=== PATIENT | male | born 1955 | race Caucasian/White ===

== ENCOUNTER → 2016-05-16 | Outpatient (CLI) | payer OTHER ==
--- NOTE | 2016-05-16 09:54 | DIAGNOSTIC IMAGING REPORT ---
CT SCAN OF THE TEMPORAL BONES WITHOUT IV CONTRAST CLINICAL HISTORY: Chronic cholesteatoma. COMPARISON STUDY: No priors. TECHNIQUE: High-resolution CT scan of the temporal bones is performed. Images are reviewed in the axial, sagittal, and coronal planes. IV contrast was not administered for this examination. CT DOSE: 626.31 mGy.cm FINDINGS: The skeletal structures are osteopenic. There is no evidence of temporal bone fracture. The right mastoid air cells are clear. There is near complete opacification of the left mastoid air cells. This appears to communicate with soft tissue attenuation density within the left middle ear. This measures at least 1.7 cm in maximum diameter and surrounds the left ossicles, and likely represents the reported history of cholesteatoma. This is also contiguous with material within the external auditory canal adjacent to the tympanic membrane. The left scutum appears eroded. There is no dehiscence of the left tegmen tympany. The right middle ear structures are normal in appearance. The right scutum appears sharp. Trace mucosal thickening is seen within the maxillary antra. The remaining paranasal sinuses are clear. Partially visualized brain parenchyma at the skull base is within normal limits. The orbital contents are normal as imaged. IMPRESSION: 1. There is subtotal opacification of the left mastoid air cells. This is contiguous with soft tissue density material within the left middle ear as detailed above. This likely corresponds to the reported history of a chronic cholesteatoma. 2. The right middle ear structures are normal as imaged. Dictated: 05/16/2016 9:41 AM Transcribed: 05/16/2016 9:54 AM [email or web address] Electronically signed by: Ermias Pena M.D. 05/16/2016 9:59 AM Dictated Date/Time: 05/16/2016 9:41 AM
== END | disposition home or self-care (01) ==
LOC: C.CTS 09:26
PROVIDERS: ATTEND Otolaryngology
DX: H71.02 Cholesteatoma of attic, left ear (principal); H70.12 Chronic mastoiditis, left ear; H90.72 Mixed conductive and sensorineural hearing loss, unilateral, left ear, with unrestricted hearing on the contralateral side

== ENCOUNTER 2023-12-16 05:32 | Inpatient (IN) ==
[2023-12-16] MEDS: diphenhydrAMINE 50 MG/ML VIAL IV STA (07:13)
[2023-12-16] MEDS: PROCHLORPERAZINE 2 ML IV ONE (07:13)
[2023-12-16] MEDS: SODIUM CHLORIDE 0.9% 2,000 ML IV ONE (07:15)
[2023-12-16 07:24] LABS: Hematocrit (blood only) 39.8 % (42.0-52.0); Hemoglobin 13.9 g/dl (14.0-18.0); Mean Corpuscular Hemoglobin 30.3 pg (25.0-34.0); Mean Corpuscular Hgb Conc 34.9 g/dL (32.0-36.0); Mean Corpuscular Volume 86.9 fL (80.0-100.0); Mean Platelet Volume 9.7 fL (9.4-12.4); Platelet Count 189 K/uL (130-400); RDW Standard Deviation 41.1 fL (36.4-46.3); Red Blood Count 4.58 M/uL (4.70-6.10); White Blood Count 6.64 K/ul (4.8-10.8)
[2023-12-16 07:30] LABS: Alanine Aminotransferase 28 U/L (7-52); Albumin Globulin Ratio 1.1 (0.9-2); Albumin Level 3.3 gm/dl (3.4-5.0); Alkaline Phosphatase 36 U/L (34-104); Anion Gap 8 (3-11); Aspartate Aminotransferase 36 U/L (13-39); BUN Creatinine Ratio 17.8 (10-20); Bilirubin,Total 0.4 mg/dl (0.2-1.0); Blood Urea Nitrogen 18 mg/dl (6-23); Calcium 8.1 mg/dl (8.6-10.3); Carbon Dioxide 22 mmol/L (21-32); Chloride 101 mmol/L (98-107); Est GFR (African American) 87.6 ml/min; Est GFR (Non-African American) 75.5 ml/min; Globulin 3.1 gm/dl (2.5-4.0); Glucose 143 mg/dl (70-99(Fasting)); Lipase 22 U/L (11-82); Potassium 4.1 mmol/L (3.5-5.1); Sodium 131 mmol/L (136-145); Total Protein 6.4 gm/dl (6.0-8.3)
--- NOTE | 2023-12-16 07:34 | Emergency Department Note ---
Impression & Plan Headache, Bilateral pneumonia, Acute hypoxemic respiratory failure, COVID-19 ED Provider Note HISTORY OF PRESENT ILLNESS: Patient is a 68-year-old male presenting with headache and vomiting. Patient's daughter acts as research laboratory technician, as patient is primarily [place]-speaking. Offered formal research laboratory technician but she declined. She reports that the patient tested positive for COVID on 12/07/2023 (9 days ago). Reports patient has had a cough and has been on steroids intermittently since. Patient was seen in the emergency department on 12/09/2023 and diagnosed with bronchitis with his COVID. He was not started on Paxlovid after a thorough discussion. He was given a dose of 125 mg IV Solu-Medrol and 10 mg IV Toradol and had some improvement in his symptoms. He was discharged home with a Medrol Dosepak. Patient reportedly has been having a headache over the last week. Daughter states that the patient has been complaining of a constant headache for the last 7 days. Reports in the last 48 hours a headache has been significantly worse. Patient locates the pain diffusely across his anterior forehead. He has never had headaches like this before outside of the last week. Denies any recent falls or head injury or chiropractic manipulation of his neck. He reports some blurry vision over the last 48 hours. Denies any double vision. Denies any numbness, tingling or weakness in his extremities. He did have a fever of 100.1 yesterday, but when they went to see his primary care provider he was afebrile. Patient was seen in the emergency department 2 days ago for his persistent headache and was given a headache cocktail with some improvement in his symptoms. He was also given a short course of oxycodone, which reportedly did seem to help his headache at the time. Daughter reports that shortly after getting home after the ER visit, his headache returned. Daughter reports that yesterday when they went to the patient's PCP, he was given a further prescription for oxycodone, but he has taken 2-3 doses of this for his persistent headache, with little relief in symptoms. He has had associated vomiting with the headache. He is not on any anticoagulation. Denies any recent surgeries or long flights. Denies any DVT or PE history. ROS: as above PHYSICAL EXAM: Constitutional: Patient appears in no acute distress. Patient actively vomiting on my assessment in the emergency department. HENT: Head: Normocephalic and atraumatic. Eyes: EOMI, PERRL Mouth/Throat: Mucous membranes moist. Neck: Trachea midline. Neck supple. Full range of motion of the neck without meningismus. Cardiovascular: RRR, No murmurs, rubs or gallops. Intact distal pulses. Pulmonary/Chest: No respiratory distress. Breath sounds clear and equal bilaterally. No wheezes or rales. Abdominal: Abdomen soft, no rebound or guarding. RUQ TTP Musculoskeletal: No edema, tenderness or deformity noted. Skin: Warm and dry. No rash, erythema, pallor or cyanosis Psychiatric: Appropriate mood and affect for situation. Neurological: Alert and keenly responsive. CN II-XII grossly intact, moving all extremities equally and fully. MDM: - Vitals signs stable - History obtained via patient's daughter, as patient is primarily [place] speaking. History as above. - Chronic conditions affecting care: DM-2; HLD - Differential diagnoses include, but are not limited to: Viral syndrome; meningitis; subarachnoid hemorrhage; central venous sinus thrombosis; pneumonia; UTI; cholecystitis - Order placed for continuous cardiac monitoring. At this time, monitor showed rate of 80 bpm with normal sinus rhythm, per my interpretation. - External medical records reviewed. PDMP was reviewed. Patient was given a total of 20 tabs of oxycodone by PCP on 12/15/2023 - EKG interpreted by myself showed normal sinus rhythm. Rate 68 bpm. QT 416. No acute ischemic changes. - Laboratory workup interpreted by myself showed normal WBC; normal PT/INR; elevated lactate (3.4); slight hyponatremia (Na 131); normal procalcitonin; elevated CRP (15.49); normal lipase - CXR shows bilateral pneumonia, per my interpretation - CT venogram negative - CT abdomen/pelvis with IV contrast negative for acute intra-abdominal abnormality. Noted to have multifocal airspace consolidations in both lungs concerning for multifocal pneumonia. - Viral respiratory panel positive for COVID-19 - Patient initially given 2L NS, 10 mg IV compazine and 50 mg IV benadryl - He was empirically started on antibiotics for potential meningitis. Given IV Rocephin and IV vancomycin. On reassessment, he is still complaining of a headache and was given 1 g IV magnesium and 1 g IV Tylenol. - Blood cultures ordered. - Patient became hypoxic in ER and was initially placed on 2 L nasal cannula, then increased to 4 L and then placed on oxi mask. - With the use of a [place] research laboratory technician on the video conference iPad, I discussed the medical reasoning and benefits of performing a lumbar puncture with the patient for the evaluation of meningitis. Associated risks associated with lumbar puncture including but not limited to worsening headache, introduction of infection, bleeding and hematoma formation, etc. Consequences associated with these risks were discussed with patient. Benefits of lumbar puncture discussed with the patient included but not limited to making the diagnosis of meningitis and guiding therapy. Other treatment options were discussed including but not limited to treating for meningitis with antibiotics without performing lumbar puncture, and if available consulting radiology to perform lumbar puncture, etc. I described the procedure in depth and what to expect during the procedure with the patient. Patient voiced understanding of benefits, risks and alternative options. Patient gave verbal consent for me to perform the procedure. Patient tolerated procedure well and without any immediate complication. Please refer to procedure note for further detail. - Both myself and Dr. Campo attempted the LP but no cerebrospinal fluid was able to be obtained. Antibiotics are currently being administered for coverage for meningitis. - Discussion was had with case managers about patient's case and need for admission - Hospitalist consulted for admission - Patient admitted to [facility] for further evaluation and management. I have personally spent 36 minutes of critical care time in the direct management of this patient. This includes bedside care, interpretation of diagnostic studies, and testing, discussion with consultants, patient, and family members, and other required patient management activities. This 36 minutes is in excess of all separately billable procedures. ASSESSMENT AND PLAN: Diagnosis: Headache; COVID-19; bilateral pneumonia; acute hypoxic respiratory failure Plan: Admit Past Med/Surg History Problem List (Updated 12/16/23 @ 13:52 by Sobia Barrientos MD) COVID-19 (Acute) Acute hypoxemic respiratory failure (Acute) Bilateral pneumonia (Acute) Headache (Acute) Acute respiratory failure with hypoxia Pneumonia History of granulomatous disease History of chronic cough Diabetes mellitus, type II HTN (hypertension) CKD (chronic kidney disease), stage III Acute hyponatremia (Acute) COVID-19 (Acute) Headache (Acute) Cough (Acute) COVID (Acute) Lung disease Diabetes Dyslipidemia Medical History (Updated 12/16/23 @ 13:52 by Sobia Barrientos MD) Left ear hearing loss Bilateral tinnitus Vertigo Surgical History (Updated 12/16/23 @ 12:50 by Molly Machuca PA-C) History of esophagogastroduodenoscopy (EGD) History of colonoscopy Status post mastoidectomy Family History (Updated 12/16/23 @ 12:51 by Molly Machuca PA-C) Mother Diabetes Social History Smoking Status: Former smoker Preferred Language: [place] Communication Tools: IPad Feels Safe at Home: Yes Allergies Allergies Allergy/AdvReac Type Severity Reaction Status Date / Time No Known Allergies Allergy Verified 02/21/21 12:03 Home Meds Home Medications Medication Instructions Recorded Confirmed glipizide 5 mg tablet, extended 5 mg PO DAILY 11/22/20 12/16/23 release 24 hr pantoprazole 40 mg tablet,delayed 40 mg PO DAILY 11/22/20 12/16/23 release albuterol sulfate 90 mcg/actuation 2 inh inhalation Q6H PRN Shortness 02/21/21 12/16/23 aerosol inhaler (Ventolin HFA) Of Breath Or Wheezing atorvastatin 80 mg tablet 80 mg PO HS 12/14/23 12/16/23 linagliptin 5 mg tablet (Tradjenta) 5 mg PO DAILY 12/14/23 12/16/23 losartan 25 mg tablet 25 mg PO DAILY 12/14/23 12/16/23 mometasone 220 mcg/actuation(120 0 inh inhalation UD 12/14/23 12/16/23 doses)breath activated powder inhaler (Asmanex Twisthaler) benzonatate 200 mg capsule 200 mg PO BID PRN Cough 12/16/23 12/16/23 ondansetron HCl 4 mg tablet 4 mg PO Q8H PRN n/v 12/16/23 12/16/23 oxycodone 5 mg tablet 5 mg PO Q6H PRN Pain 12/16/23 12/16/23 prednisone 20 mg tablet 20 mg PO UD 12/16/23 12/16/23 Results & Data (ED) Vital Signs Vital Signs - 24 hr 12/16/23 05:32 12/16/23 05:37 12/16/23 05:51 Temperature 37.1 C Temperature Source Oral Pulse Rate 85 84 Pulse Rate [Apical] Pulse Rate from SpO2 Sensor Respiratory Rate Respiratory Effort / Characteristics Non-Labored Respiratory Depth Normal Respiratory Pattern Blood Pressure 133/78 Blood Pressure [Left Arm] Blood Pressure Mean 96 Blood Pressure Mean [Left Arm] Pulse Oximetry 91 Oxygen Delivery Method Room Air Oxygen Flow Rate Sepsis Recent Fever Within 48 Hours Yes Sepsis New/Unexplained Change in Mental Status No Sepsis Action Taken by Nursing No Action Required 12/16/23 05:51 12/16/23 05:51 12/16/23 05:51 Temperature Temperature Source Pulse Rate Pulse Rate [Apical] Pulse Rate from SpO2 Sensor Respiratory Rate Respiratory Effort / Characteristics Respiratory Depth Respiratory Pattern Blood Pressure 159/93 H 159/93 H 159/93 H Blood Pressure [Left Arm] Blood Pressure Mean 113 113 113 Blood Pressure Mean [Left Arm] Pulse Oximetry Oxygen Delivery Method Oxygen Flow Rate Sepsis Recent Fever Within 48 Hours Sepsis New/Unexplained Change in Mental Status Sepsis Action Taken by Nursing 12/16/23 05:54 12/16/23 06:09 12/16/23 06:18 Temperature Temperature Source Pulse Rate 80 84 74 Pulse Rate [Apical] Pulse Rate from SpO2 Sensor 76 70 70 Respiratory Rate 17 23 22 Respiratory Effort / Characteristics Respiratory Depth Respiratory Pattern Blood Pressure Blood Pressure [Left Arm] Blood Pressure Mean Blood Pressure Mean [Left Arm] Pulse Oximetry 95 95 97 Oxygen Delivery Method Oxygen Flow Rate Sepsis Recent Fever Within 48 Hours Sepsis New/Unexplained Change in Mental Status Sepsis Action Taken by Nursing 12/16/23 06:45 12/16/23 06:48 12/16/23 07:21 Temperature Temperature Source Pulse Rate 76 77 Pulse Rate [Apical] Pulse Rate from SpO2 Sensor 78 78 Respiratory Rate 19 15 Respiratory Effort / Characteristics Respiratory Depth Respiratory Pattern Blood Pressure 144/74 H Blood Pressure [Left Arm] Blood Pressure Mean 86 Blood Pressure Mean [Left Arm] Pulse Oximetry 96 96 Oxygen Delivery Method Oxygen Flow Rate Sepsis Recent Fever Within 48 Hours Sepsis New/Unexplained Change in Mental Status Sepsis Action Taken by Nursing 12/16/23 07:21 12/16/23 07:21 12/16/23 07:24 Temperature Temperature Source Pulse Rate 78 Pulse Rate [Apical] Pulse Rate from SpO2 Sensor Respiratory Rate 22 Respiratory Effort / Characteristics Respiratory Depth Respiratory Pattern Blood Pressure 144/74 H 144/74 H Blood Pressure [Left Arm] Blood Pressure Mean 86 86 Blood Pressure Mean [Left Arm] Pulse Oximetry 92 Oxygen Delivery Method Nasal Cannula Oxygen Flow Rate 2 Sepsis Recent Fever Within 48 Hours Sepsis New/Unexplained Change in Mental Status Sepsis Action Taken by Nursing 12/16/23 07:24 12/16/23 07:30 12/16/23 07:30 Temperature Temperature Source Pulse Rate 77 80 Pulse Rate [Apical] Pulse Rate from SpO2 Sensor 78 81 Respiratory Rate 25 H 22 Respiratory Effort / Characteristics Respiratory Depth Respiratory Pattern Blood Pressure 140/79 Blood Pressure [Left Arm] Blood Pressure Mean 93 Blood Pressure Mean [Left Arm] Pulse Oximetry 90 93 Oxygen Delivery Method Oxygen Flow Rate Sepsis Recent Fever Within 48 Hours Sepsis New/Unexplained Change in Mental Status Sepsis Action Taken by Nursing 12/16/23 07:30 12/16/23 07:30 12/16/23 07:45 Temperature Temperature Source Pulse Rate 83 Pulse Rate [Apical] Pulse Rate from SpO2 Sensor 86 Respiratory Rate 22 Respiratory Effort / Characteristics Respiratory Depth Respiratory Pattern Blood Pressure 140/79 140/79 Blood Pressure [Left Arm] Blood Pressure Mean 93 93 Blood Pressure Mean [Left Arm] Pulse Oximetry 97 Oxygen Delivery Method Oxygen Flow Rate Sepsis Recent Fever Within 48 Hours Sepsis New/Unexplained Change in Mental Status Sepsis Action Taken by Nursing 12/16/23 07:54 12/16/23 08:00 12/16/23 08:00 Temperature Temperature Source Pulse Rate 79 Pulse Rate [Apical] Pulse Rate from SpO2 Sensor 79 Respiratory Rate 21 Respiratory Effort / Characteristics Respiratory Depth Respiratory Pattern Blood Pressure 133/76 133/76 Blood Pressure [Left Arm] Blood Pressure Mean 103 103 Blood Pressure Mean [Left Arm] Pulse Oximetry Oxygen Delivery Method Oxygen Flow Rate Sepsis Recent Fever Within 48 Hours Sepsis New/Unexplained Change in Mental Status Sepsis Action Taken by Nursing 12/16/23 08:00 12/16/23 08:33 12/16/23 08:38 Temperature Temperature Source Pulse Rate 77 95 H Pulse Rate [Apical] 73 Pulse Rate from SpO2 Sensor 77 Respiratory Rate 21 25 H 19 Respiratory Effort / Characteristics Respiratory Depth Respiratory Pattern Blood Pressure Blood Pressure [Left Arm] 133/76 Blood Pressure Mean Blood Pressure Mean [Left Arm] 95 Pulse Oximetry 90 87 L Oxygen Delivery Method Nasal Cannula Oxygen Flow Rate 2 Sepsis Recent Fever Within 48 Hours Sepsis New/Unexplained Change in Mental Status Sepsis Action Taken by Nursing 12/16/23 08:40 12/16/23 09:27 12/16/23 11:00 Temperature Temperature Source Pulse Rate 76 Pulse Rate [Apical] 70 Pulse Rate from SpO2 Sensor Respiratory Rate 18 Respiratory Effort / Characteristics Non-Labored Spontaneous Respiratory Depth Normal Respiratory Pattern Regular Blood Pressure Blood Pressure [Left Arm] 142/82 H Blood Pressure Mean Blood Pressure Mean [Left Arm] 102 Pulse Oximetry 94 95 Oxygen Delivery Method Nasal Cannula Oxymask Oxygen Flow Rate 4 4 Sepsis Recent Fever Within 48 Hours Sepsis New/Unexplained Change in Mental Status Sepsis Action Taken by Nursing Laboratory Data 12/16/23 06:00 12/16/23 06:00 Lab Results 12/16/23 12/16/23 12/16/23 Range/Units 06:00 07:05 07:39 WBC 6.64 (4.8-10.8) K/ul RBC 4.58 L (4.70-6.10) M/uL Hgb 13.9 L (14.0-18.0) g/dl Hct 39.8 L (42.0-52.0) % MCV 86.9 (80.0-100.0) fL MCH 30.3 (25.0-34.0) pg MCHC 34.9 (32.0-36.0) g/dL RDW Std Deviation 41.1 (36.4-46.3) fL RDW Coeff of John 13.0 (11.5-14.5) % Plt Count 189 (130-400) K/uL MPV 9.7 (9.4-12.4) fL Neutrophils % (Manual) 84 % Lymphocytes % (Manual) 10 % Monocytes % (Manual) 6 % Neutrophils # (Manual) 5.58 (1.40-6.50) K/uL Total Absolute Neuts 5.58 (1.4-6.5) K/uL Lymphocytes # (Manual) 0.66 L (1.2-3.4) K/uL Total Abs Lymphocytes 0.66 L (1.2-3.4) K/uL Monocytes # (Manual) 0.40 (0.11-0.59) K/uL RBC Morphology Unremarkable PT 10.5 (9.0-12.0) Seconds INR 1.0 (0.9-1.1) Sodium 131 L (136-145) mmol/L Potassium 4.1 (3.5-5.1) mmol/L Chloride 101 (98-107) mmol/L Carbon Dioxide 22 (21-32) mmol/L Anion Gap 8 (3-11) BUN 18 (6-23) mg/dl Creatinine 1.01 (0.6-1.4) mg/dl Est Cr Clr Drug Dosing Not Reportable Est GFR ( Amer) 87.6 ml/min Est GFR (Non-Af Amer) 75.5 ml/min BUN/Creatinine Ratio 17.8 (10-20) Glucose 143 H (70-99(Fasting)) mg/dl Lactate 3.4 H* (0.4-2.0) mmol/L Calcium 8.1 L (8.6-10.3) mg/dl Magnesium 1.9 (1.7-2.4) mg/dl Total Bilirubin 0.4 (0.2-1.0) mg/dl AST 36 (13-39) U/L ALT 28 (7-52) U/L Alkaline Phosphatase 36 (34-104) U/L C-Reactive Protein 15.49 H (0-0.5) mg/dl Total Protein 6.4 (6.0-8.3) gm/dl Albumin 3.3 L (3.4-5.0) gm/dl Globulin 3.1 (2.5-4.0) gm/dl Albumin/Globulin Ratio 1.1 (0.9-2) Lipase 22 (11-82) U/L Procalcitonin 0.10 (0-0.5) ng/ml Urine Color Urine Appearance (Clear) Urine pH (4.5-7.5) Ur Specific [place] (1.000-1.030) Urine Protein (Negative) Urine Glucose (UA) (Negative) Urine Ketones (Negative) Urine Blood (Negative) Urine Nitrite (Negative) Urine Bilirubin (Negative) Urine Urobilinogen (Negative) Ur Leukocyte Esterase (Negative) Adenovirus (PCR) (NotDetected) B. pertussis DNA (PCR) (NotDetected) B.parapertussis DNA PCR (NotDetected) C. pneumoniae DNA (PCR) (NotDetected) Coronavirus OC43 (PCR) (NotDetected) Coronavirus HKU1 (PCR) (NotDetected) Coronavirus 229E (PCR) (NotDetected) SARS-CoV-2 (PCR) (NotDetected) Coronavirus NL63 (PCR) (NotDetected) Human Metapneumovir PCR (NotDetected) Influenza Type A (PCR) (NotDetected) Influenza Type B (PCR) (NotDetected) M. pneumoniae (PCR) (NotDetected) Parainfluenza 1 (PCR) (NotDetected) Parainfluenza 2 (PCR) (NotDetected) Parainfluenza 3 (PCR) (NotDetected) Parainfluenza 4 (PCR) (NotDetected) RSV (PCR) (NotDetected) Entero/Rhino (PCR) (NotDetected) 12/16/23 12/16/23 12/16/23 Range/Units 09:04 09:33 10:13 WBC (4.8-10.8) K/ul RBC (4.70-6.10) M/uL Hgb (14.0-18.0) g/dl Hct (42.0-52.0) % MCV (80.0-100.0) fL MCH (25.0-34.0) pg MCHC (32.0-36.0) g/dL RDW Std Deviation (36.4-46.3) fL RDW Coeff of John (11.5-14.5) % Plt Count (130-400) K/uL MPV (9.4-12.4) fL Neutrophils % (Manual) % Lymphocytes % (Manual) % Monocytes % (Manual) % Neutrophils # (Manual) (1.40-6.50) K/uL Total Absolute Neuts (1.4-6.5) K/uL Lymphocytes # (Manual) (1.2-3.4) K/uL Total Abs Lymphocytes (1.2-3.4) K/uL Monocytes # (Manual) (0.11-0.59) K/uL RBC Morphology PT (9.0-12.0) Seconds INR (0.9-1.1) Sodium (136-145) mmol/L Potassium (3.5-5.1) mmol/L Chloride (98-107) mmol/L Carbon Dioxide (21-32) mmol/L Anion Gap (3-11) BUN (6-23) mg/dl Creatinine (0.6-1.4) mg/dl Est Cr Clr Drug Dosing Est GFR ( Amer) ml/min Est GFR (Non-Af Amer) ml/min BUN/Creatinine Ratio (10-20) Glucose (70-99(Fasting)) mg/dl Lactate 1.1 (0.4-2.0) mmol/L Calcium (8.6-10.3) mg/dl Magnesium (1.7-2.4) mg/dl Total Bilirubin (0.2-1.0) mg/dl AST (13-39) U/L ALT (7-52) U/L Alkaline Phosphatase (34-104) U/L C-Reactive Protein (0-0.5) mg/dl Total Protein (6.0-8.3) gm/dl Albumin (3.4-5.0) gm/dl Globulin (2.5-4.0) gm/dl Albumin/Globulin Ratio (0.9-2) Lipase (11-82) U/L Procalcitonin (0-0.5) ng/ml Urine Color Yellow Urine Appearance Clear (Clear) Urine pH 5.0 (4.5-7.5) Ur Specific [place] 1.031 H (1.000-1.030) Urine Protein Negative (Negative) Urine Glucose (UA) Negative (Negative) Urine Ketones Trace H (Negative) Urine Blood Negative (Negative) Urine Nitrite Negative (Negative) Urine Bilirubin Negative (Negative) Urine Urobilinogen Negative (Negative) Ur Leukocyte Esterase Negative (Negative) Adenovirus (PCR) Not Detected (NotDetected) B. pertussis DNA (PCR) Not Detected (NotDetected) B.parapertussis DNA PCR Not Detected (NotDetected) C. pneumoniae DNA (PCR) Not Detected (NotDetected) Coronavirus OC43 (PCR) Not Detected (NotDetected) Coronavirus HKU1 (PCR) Not Detected (NotDetected) Coronavirus 229E (PCR) Not Detected (NotDetected) SARS-CoV-2 (PCR) DETECTED A (NotDetected) Coronavirus NL63 (PCR) Not Detected (NotDetected) Human Metapneumovir PCR Not Detected (NotDetected) Influenza Type A (PCR) Not Detected (NotDetected) Influenza Type B (PCR) Not Detected (NotDetected) M. pneumoniae (PCR) Not Detected (NotDetected) Parainfluenza 1 (PCR) Not Detected (NotDetected) Parainfluenza 2 (PCR) Not Detected (NotDetected) Parainfluenza 3 (PCR) Not Detected (NotDetected) Parainfluenza 4 (PCR) Not Detected (NotDetected) RSV (PCR) Not Detected (NotDetected) Entero/Rhino (PCR) Not Detected (NotDetected) Administered Medications Discontinued Medications Diphenhydramine HCl (Diphenhydramine 50 Mg/Ml Vial) 50 mg IV NOW STA Stop: 12/16/23 07:05 Last Admin: 12/16/23 07:13 Dose: 50 mg Documented By: MMF Sodium Chloride (Nss) 2,000 mls @ 999 mls/hr IV .Q2H1M ONE Stop: 12/16/23 09:04 Last Infusion: 12/16/23 09:28 Dose: Infused Documented By: Admin: 12/16/23 07:15 Dose: 999 mls/hr Documented By: MMF Prochlorperazine (Compazine) 2 mls @ 1 mls/min IV ONE ONE Stop: 12/16/23 07:05 Last Admin: 12/16/23 07:13 Dose: 1 mls/min Documented By: MMF Ceftriaxone Sodium (Rocephin) 2,000 mg in 50 mls @ 100 mls/hr IV NOW STA Stop: 12/16/23 08:45 Last Infusion: 12/16/23 09:28 Dose: Infused Documented By: Admin: 12/16/23 08:48 Dose: 100 mls/hr Documented By: MMF Vancomycin HCl 1,500 mg/ (Sodium Chloride) 530 mls @ 200 mls/hr IV NOW ONE Stop: 12/16/23 10:54 Last Infusion: 12/16/23 12:07 Dose: Infused Documented By: Admin: 12/16/23 09:24 Dose: 200 mls/hr Documented By: MMF Magnesium Sulfate/Dextrose (Magnesium Sulfate / D5w) 1 gm in 100 mls @ 100 mls/hr IV NOW STA Stop: 12/16/23 09:43 Last Infusion: 12/16/23 10:45 Dose: Infused Documented By: Admin: 12/16/23 09:24 Dose: 100 mls/hr Documented By: MMF Acetaminophen (Ofirmev) 1,000 mg in 100 mls @ 400 mls/hr IV NOW STA Stop: 12/16/23 08:58 Last Infusion: 12/16/23 10:45 Dose: Infused Documented By: Admin: 12/16/23 09:24 Dose: 400 mls/hr Documented By: MMF Ioversol (Optiray 320 125ml) 118 ml IV ONCE ONE Stop: 12/16/23 08:25 Last Admin: 12/16/23 08:24 Dose: 118 ml Documented By: HEMANTH Imaging Data Radiologist's Impression: Abdomen/Pelvis CT 12/16/23 07:31 CT SCAN OF THE ABDOMEN AND PELVIS WITH IV CONTRAST CLINICAL HISTORY: Right upper quadrant abdominal pain. COMPARISON STUDY: Chest CT dated 02/21/2021. TECHNIQUE: Following the IV administration of 118 cc of Optiray 320, CT scan of the abdomen and pelvis is performed from the lung bases to the proximal femora. Images are reviewed in the axial, sagittal, and coronal planes. IV contrast was administered without complication. A dose lowering technique was utilized adhering to the principles of ALARA. The examination is degraded by streak artifact from the right arm which could not be elevated above the abdomen. There is also motion artifact. CT DOSE: 2718.69 mGy.cm FINDINGS: Lung bases: The heart is enlarged and without pericardial effusion. The coronary arteries are densely calcified. Airspace consolidation is seen at both lung bases with foci of architectural distortion. No pleural effusion is identified. There is a [id number] hiatal hernia. Liver: The contrast-enhanced liver is normal in size and contour. Attenuation is diminished suggesting steatosis. There is no intrahepatic biliary ductal dilatation. The hepatic veins and portal veins are patent. Gallbladder: Unremarkable. Spleen: Normal in size and attenuation. Pancreas: Unremarkable. Adrenal glands: Unremarkable. Kidneys: The contrast enhanced kidneys are normal in size and without hydronephrosis. The kidneys enhance symmetrically. Abdominal vasculature: The abdominal aorta is normal in course and caliber noting mild to moderate atherosclerotic calcification. Bowel: There is [id number] sigmoid diverticulosis without CT evidence of acute diverticulitis. No bowel obstruction is seen. The appendix is well- visualized and normal. Peritoneum: There is no intraperitoneal free air or abdominal ascites. There is a fat-containing umbilical hernia. Lymphadenopathy: None. Pelvic viscera: The prostate gland is enlarged and heterogeneous. The bladder wall is thickened/trabeculated indicating chronic outlet obstruction. There are small bilateral fat-containing groin hernias. Skeletal structures: The skeletal structures are osteopenic. There is mild to moderate lumbosacral spondylosis. No lytic or blastic lesions are seen. IMPRESSION: 1. No acute infectious or inflammatory findings are identified in the abdomen or pelvis. 2. Multifocal airspace consolidation is seen at both lung bases with foci of architectural distortion. This was not seen on 02/21/2021 and favors multifocal pneumonia, possibly viral. Clinical correlation will be essential and radiographic follow-up to resolution is recommended. 3. Cardiomegaly. 4. Sigmoid diverticulosis without CT evidence of acute diverticulitis. 5. Additional findings as above. ACT 112: Negative or not required by law. Electronically signed by: Ermias Pena M.D. 12/16/2023 9:[address] 12/16/23 07:31 CT VENOGRAM OF THE BRAIN COMBO CLINICAL HISTORY: Headache. Vomiting. Blurry vision. COMPARISON STUDY: CT of the brain dated 12/14/2023 TECHNIQUE: Unenhanced axial CT scan of the brain is performed from the vertex to the skull base. Subsequently, CT venogram of the brain is performed following administration of 118 cc of Optiray 320. Images are reviewed in the axial, sagittal, and coronal planes. 3-D IMAGES are created and assessed. IV contrast was administered without complication. A dose lowering technique was utilized adhering to the principles of ALARA. FINDINGS: Brain parenchyma: There is minimal microangiopathic change. There is no hemorrhage, mass effect, or evidence of acute territorial ischemia by CT criteria. Elam-white matter differentiation is preserved. Mineralization is noted in the basal ganglia. There is no evidence of enhancing lesion of the venogram phase images. No extra-axial fluid collection is seen. Ventricles, sulci, cisterns: Normal in configuration. Intracranial vasculature: The intracranial arteries are patent as visualized. Atherosclerotic calcification is noted in the cavernous carotid arteries.. Dural sinuses: The superior sagittal sinus is patent, as are the transverse and sigmoid sinuses. Imaged portions of the jugular veins are patent bilaterally. The right jugular vein is larger than the left. The inferior sagittal sinus and the straight sinus are patent. There is no evidence of sinus thrombosis. Calvarium: Unremarkable. Sinuses and mastoids: The paranasal sinuses are clear. There is evidence of previous left mastoid surgery. The right mastoid air cells are well pneumatized. Orbits: The bony orbits are grossly intact. IMPRESSION: 1. There is no hemorrhage, mass effect, or evidence of acute territorial ischemia by CT criteria. 2. Normal CT venogram of the brain. ACT 112: Negative or not required by law. Electronically signed by: Ermias Pena M.D. 12/16/2023 8:54 AM Discharge Plan Visit Data Chief Complaint: Headache Stated Complaint: MIGRAINE ED Provider: Sobia Barrientos Discharge Problem: Headache, Bilateral pneumonia, Acute hypoxemic respiratory failure, COVID-19 Patient Disposition: Admitted As Inpatient Discharge Instructions Interventions: ED Discharge Assessment Last Done: 12/16/23 13:27
[2023-12-16 07:39] LABS: Prothrombin Time 10.5 Seconds (9.0-12.0)
[2023-12-16 07:51] LABS: ALC (manual) 0.66 K/uL (1.2-3.4); ANC (manual) 5.58 K/uL (1.4-6.5); Lymphocytes # (manual) 0.66 K/uL (1.2-3.4); Lymphocytes % (manual) 10 %; Monocytes % (manual) 6 %; Neutrophils # (manual) 5.58 K/uL (1.40-6.50); Neutrophils % (manual) 84 %; RBC Morphology Unremarkable
--- OUTSIDE RECORDS SUMMARY | 2023-12-16 07:56 | External Medical Summary ---
Author Name Unknown Address Unknown Organization K0G:[facility] [address] [place] [address] Laboratory Report Ordering Provider Test Date Status SUNNI VELA 12/15/2023 14:35:38 Final Observation Date Value Abnormality Reference (Units ) Status WBC, Total 12/15/2023 14:35:38 9.26 4.00-10.8 0 (K/uL) Final RBC 12/15/2023 14:35:38 4.83 4.50-5.25 (M/uL) Final Hemoglobin 12/15/2023 14:35:38 14.9 14.0-16.8 (g/dL) Final HCT 12/15/2023 14:35:38 43.5 40.0-48.4 (%) Final MCV 12/15/2023 14:35:38 90.1 82.0-99.5 (fL) Final MCH 12/15/2023 14:35:38 30.8 27.0-34.0 (pg) Final MCHC 12/15/2023 14:35:38 34.3 32.0-36.0 (g/dL) Final RDW 12/15/2023 14:35:38 13.3 11.5-15.5 (%) Final Platelets 12/15/2023 14:35:38 164 140-400 (K /uL) Final MPV 12/15/2023 14:35:38 9.8 6.6-11.1 ( fL) Final Performing Location [facility] [address] [place] [address]
--- OUTSIDE RECORDS SUMMARY | 2023-12-16 07:56 | External Medical Summary ---
Author Name Unknown Address Unknown Organization : Laboratory Report Ordering Provider Test Date Status SUNNI VELA 12/15/2023 13:51:32 Final Observation Date Value Abnormality Reference (Units ) Status Glucose Point of Care 12/15/2023 13:51:32 174 Above high normal 70-120 (mg/dL) Final Performing Location
--- OUTSIDE RECORDS SUMMARY | 2023-12-16 07:56 | External Medical Summary ---
Author Name Unknown Address Unknown Organization K0G:[facility] [address] [place] [address] Laboratory Report Ordering Provider Test Date Status SUNNI VELA 12/15/2023 14:35:38 Final Observation Date Value Abnormality Reference (Units ) Status BUN 12/15/2023 14:35:38 20 6-20 (mg/dL) Final Creatinine 12/15/2023 14:35:38 1.2 0.6-1.2 (mg/dL) Final Glomerular filtration rate/1.73 sq M.predicted [Volume Rate/Area] in Serum, Plasma or Blood by Creatinine-based formula (CKD-EPI) 12/15/2023 14:35:38 69 >=60 (mL/min) Final eGFR is calculated based on the CKD-EPI 2020 equation. Sodium 12/15/2023 14:35:38 133 Below low normal 135 -146 (mmol/L) Final Potassium 12/15/2023 14:35:38 4.4 3.5-5.1 (m mol/L) Final Cl 12/15/2023 14:35:38 96 Below low normal 98- 107 (mmol/L) Final CO2 12/15/2023 14:35:38 21 Below low normal 22- 32 (mmol/L) Final Anion gap 12/15/2023 14:35:38 16 Above high normal 7- 15 (mmol/L) Final Glucose 12/15/2023 14:35:38 168 Above high normal 70 -120 (mg/dL) Final Albumin 12/15/2023 14:35:38 3.6 Below low normal 3.8 -5.0 (g/dL) Final AST (Aspartate aminotransferase) 12/15/2023 14:35:38 39 10-50 (U/L) Fin al Alk Phos 12/15/2023 14:35:38 48 35-130 (U/ L) Final Bilirubin, Total 12/15/2023 14:35:38 0.4 <=1 .2 (mg/dL) Final Calcium 12/15/2023 14:35:38 8.8 8.4-10.2 ( mg/dL) Final Protein 12/15/2023 14:35:38 7.0 6.0-8.3 (g /dL) Final ALT (Alanine aminotransferase) 12/15/2023 14:35:38 35 10-50 (U/L) Brendan auguste Performing Location [facility] [address] [facility] [address]
--- OUTSIDE RECORDS SUMMARY | 2023-12-16 07:56 | External Medical Summary | Summary of Care ---
Author Name Unknown Organization [facility] Address [address] [place] [address] Phone [phone] Care Team Providers Care Corporate Safety Coordinator Name Role Phone Matti Dawson DO Primary Care Provider [phone] Reason for Visit * Reason Comments Outpatient Testing Encounter Details Date Type Department Care Team (Late st Contact Info) Description 12/15/2023 3:30 PM EDT Laboratory Laboratory, [facility] [address] [place] [address] [facility] [address] [place] [address] Arrived Allergies Active Allergy Reactions Criticality Noted Date Comments Dust Low 10/06/2022 rhinitis Ketoconazole Rash Medium 05/29/2023 documented as of this encounter (statuses as of 12/15/2023) Medications Medication Sig Dispensed Refills Start Date End Date Status Spacer/Aero-Holding Chambers DeviceIndications:C ough variant asthma Use with inhaler. 1 Each 10/26/2021 Active Additional Information Patient not taking.Reported on 06/29/2023 Fluticasone Propionate 50 MCG/ACT Nasal Suspension (Flonase)Indication s:PND (post-nasal drip) Administer 2 Sprays into each nostril at bedtime. 06/27/2022 Active Cetirizine HCl 10 MG Oral Capsule Take 1 Capsule by mouth in the morning. Active Famotidine 20 MG Oral Tablet (Pepcid)Indications :Gastroesophageal reflux disease without esophagitis Take 1 Tablet by mouth every evening. 180 Tablet 3 10/06/2022 Active Additional Information Patient taking differently:20 mg OralPRN, Reported on 05/15/2023 Atorvastatin Calcium 80 MG Oral Tablet (Lipitor)Indication s:Hyperlipidemia with target LDL less than 100 Take 1 Tablet by mouth in the morning. 90 Tablet 3 04/17/2023 Active Additional Information Patient taking differently:80 mg OralDAILY(1900), Reported on 05/15/2023 Losartan Potassium 25 MG Oral Tablet (Cozaar)Indications :HTN, goal below 140/90 Take 1 Tablet by mouth in the morning. In the morning.. 90 Tablet 3 04/19/2023 Active OneTouch Verio In Vitro Strip (Glucose Blood)Indications:T ype 2 diabetes mellitus with stage 3a chronic kidney disease, without long-term current use of insulin ([facility]) Use to test blood sugars 1 time a day 100 Strip 11 05/18/2023 Active OneTouch Delica Lancets 33GIndications:Type 2 diabetes mellitus with stage 3a chronic kidney disease, without long-term current use of insulin ([facility]) Use to test blood sugars once daily 100 Each 3 05/18/2023 Active Biotene Dry Mouth Mouth/Throat LozengeIndications: Chronic cough Take one three times a day 05/29/2023 Active Pantoprazole Sodium 40 MG Oral Tablet Delayed Release (Protonix)Indicatio ns:Gastroesophageal reflux disease without esophagitis Take 1 Tablet by mouth in the morning. 30 minutes before the first meal of the day and at bedtime Do not crush, split or chew the tablet. 180 Tablet 3 06/15/2023 Active glipiZIDE ER 5 MG Oral Tablet Extended Release 24 Hour (Glucotrol XL)Indications:Type 2 diabetes mellitus with stage 3a chronic kidney disease, without long-term current use of insulin ([facility]) Take 1 Tablet by mouth 2 times a day with morning and evening meals. 270 Tablet 3 07/31/2023 Active Albuterol Sulfate (PROVENTIL HFA) Inhale 2 Puffs by mouth every 6 hours as needed for Dyspnea or Wheezing. 18 g 5 08/07/2023 Active linaGLIPtin 5 MG Oral Tablet (Tradjenta)Indicati ons:Chronic kidney disease, stage 3a (HCC) Take 1 Tablet by mouth in the morning. 90 Tablet 3 08/21/2023 Active Benzonatate 200 MG Oral CapsuleIndications: Chronic cough Take 1 Capsule by mouth 2 times a day as needed for Cough. 60 Capsule 3 11/06/2023 Active Nystatin 504755 UNIT/GM External Cream Apply topically to affected area 2 times a day. To affacted area for two weeks. 30 g 2 12/01/2023 Active Hospital, Clinic, or Other Facility Administered Medication Ordered Dose Route Frequency Start Date End Date Status NSS infusionIndications:Nausea and vomiting, unspecified vomiting type 1000 mL IV ONCE 12/15/2023 12/15/2023 Ended documented as of this encounter (statuses as of 12/15/2023) Active Problems Problem Noted Date Diagnosed Date Type 2 diabetes mellitus wit h stage 3a chronic kidney disease, without long-term current use of insulin 05/15/2023 Cough variant asthma 05/15/2023 HTN, goal below 140/90 06/27/2022 Occupational exposure in workplace 06/27/2022 Vaccination declined 03/28/2022 Chronic kidney disease, stage 3a 09/01/2020 Overview: Per CKD protocol Lumbar degenerative disc disease 06/08/2020 Chronic cough 12/05/2019 Pure hypercholesterolemia 05/27/2019 Gastroesophageal reflux disease without esophagi tis 05/27/2019 Ocular migraine 05/27/2019 Left thyroid nodule 05/27/2019 Encounter for debridement of left postmastoidect taya cavity 04/15/2019 Welders' lung 08/08/2018 Encounter for mastoidectomy cavity debridement 0 09/06/2016 History of left mastoidectomy 07/01/2016 Cholesteatoma of left middle ear and mastoid 10/2016 Hearing loss, mixed, bilateral 05/25/2016 Cholesteatoma of attic of ear 05/20/2016 Vertigo 04/11/2016 Bilateral tinnitus 04/11/2016 Left ear hearing loss 04/11/2016 documented as of this encounter (statuses as of 12/15/2023) Resolved Problems Problem Noted Date Diagnosed Date Resolved Date Food insecurity 10/31/2022 06/01/2023 Overview: Per [facility] Protocol Type 2 diabetes mellitus wit h stage 3a chronic kidney disease, without long-term current use of insulin 04/01/2021 05/05/2021 Cough variant asthma 01/07/2021 023 Type 2 diabetes mellitus wit h stage 3a chronic kidney disease 07/28/2020 05/15/2023 Overview: Per CKD protocol Diabetes mellitus with stage 3 chronic kidney disease 01/27/2020 07/30/2020 Overview: Per CKD protocol Diabetes mellitus without complication 01/06/2020 02/21/2020 Kidney disease, chronic, sta ge III (GFR 30-59 ml/min) 02/26/2018 01/30/2020 Overview: Per CKD protocol #1 Dermatitis of right ear canal 11/03/2016 07/26/2017 Status post ear surgery 06/06/2016 05/11/2017 Traumatic fracture of lumbar vertebra 04/11/2016 07/26/2017 Overview: ICD-10 update of inactive term documented as of this encounter (statuses as of 12/15/2023) Immunizations Name Administration Dates Next Due Pneumococcal Conjugate Vaccine, 20-valent (Prevn ar20) 05/15/2023 TDAP (age 10 and older)(Boostrix) 05/15/2023 documented as of this encounter Social History Tobacco Use Types Packs/Day Years Used Date Smoking Tobacco: Former Cigarettes 0.3 9 1 971 - 1980 Passive Smoke Exposure: Never Smokeless Tobacco: Never Alcohol Use Standard Drinks/Week Comments No 0 (1 standard drink = 0.6 oz pur e alcohol) once a year PHQ-2 Answer Date Recorded PHQ Adult Total Score 0 12/01/2023 Hunger Vital Sign Answer Date Recorded Within the past 12 months, y ou worried that your food would run out before you got the money to buy more. Never true 05/15/19 24 Within the past 12 months, t he food you bought just didn't last and you didn't have money to get more. Never true 05/15/2023 Childcare Answer Date Recorded Do you feel overwhelmed with taking care of a child, family member or friend? No 05/15/2023 Does your family need help f inding childcare? (Household - for ages 0-17 years) Not on file 05/15/2023 Clothing Answer Date Recorded Have you been unable to get clothing when it was really needed? No 05/15/2023 Is your family able to get c lothes or diapers when needed? (Household - for ages 0-17 years) Not on file 05/15/2023 Personal Safety Answer Date Recorded Do you feel unsafe or have concerns for your saf ety? No 05/15/2023 Do you have concerns for you r family's safety? (Household - for ages 0-17 years) Not on file 05/15/2023 Utilities Answer Date Recorded Do you have trouble paying y our heating, water, or electric bill? No 05/15/2023 Is your family able to pay t he heat, water, or electric bill? (Household - for ages 0-17 years) Not on file 05/15/2023 Does your family have access to good internet? (Household - for ages 0-17 years) Not on file 05/15/2023 Employment Status Answer Date Recorded Are you unemployed or without regular income? No 05/15/2023 Does the household have a re gular source of income? (Household - for ages 0-17 years) Not on file 05/15/2023 Social Connections Answer Date Recorded How often do you feel lonely or isolated from th ose around you? Never 05/15/2023 Financial Resource Strain Answer Date R ecorded Do you have any trouble payi ng for your medications, or do you think you might in the future? No 05/15/2023 Does your family have troubl e paying for medicine? (Household - for ages 0-17 years) Not on file 05/15/2023 Transportation Needs Answer Date Record ed READ ONLY Do you have troubl e getting a ride to medical visits or work? Never True 05/15/2023 Does your family have a hard time getting a ride to doctors visits? (Household - for ages 0-17 years) Not on file 05/15/2023 Has lack of transportation k ept you from medical appointments, meetings, work, or from getting things needed for daily living? Check all that apply. (Adult - for ages 18 years and over) Not on file 05/15/2023 Do you (or your family) have trouble finding or paying for a ride (transportation)? (Household - for ages 0-17 years) Not on file 05/15/2023 Housing Stability Answer Date Recorded Do you currently live in a s helter or have no steady place to sleep at night? No 05/15/2023 READ ONLY Do you think you a re at risk of becoming homeless? No 05/15/2023 Does your family worry about paying for your home or becoming homeless? (Household - for ages 0-17 years) Not on file 0 05/15/2023 Are you homeless or worried that you might be in the future? (Adult - for ages 18 years and over) Not on file Are you (or your family) radha eless or worried that you might be in the future? (Household - for ages 0-17 years) Not on file Food Insecurity Answer Date Recorded Do you need food for this week? No 05/15/2023 Are you able to get enough f ood for your family? (Household - for ages 0-17 years) Not on file 05/15/2023 Does your family need food t his week? (Household - for ages 0-17 years) Not on file 05/15/2023 Do you always have enough fo od for your family? (Household - for ages 0-17 years) Not on file 05/15/2023 Sex and Gender Information Value Date Recorded Sex Assigned at Male 08/08/2018 3:30 PM EDT Gender Identity Male 08/08/2018 3:30 PM EDT Sexual Orientation Straight 08/08/2018 3: 30 PM EDT Job Start Date Occupation Industry Not on file Not on file Not on file documented as of this encounter Plan of Treatment Upcoming Encounters Date Type Department Care Team (Late st Contact Info) Description 01/02/2024 10:00 AM EDT Nutrition Services Nutrition Services 65 [facility] [address] [facility] [place] [address] Senait Davis RDN [address] [facility] [place] [address] 02/05/2024 4:00 PM EST Office Visit Dermatology [facility] [place] [address] [place] [address] Gulshan Mchugh MD [address] [place] [address] 02/23/2024 2:00 PM EST Office Visit Orthopaedics Spine Surgery, [facility] [address] [facility] [place] [address] Erika Sin CRNP [address] [place] [phone] 04/01/2024 2:20 PM EST Office Visit Family Practice [facility] [place] [address] [facility], [place] [phone] Matti Dawson, [address] [place] [address] 05/30/2024 2:30 PM EDT Office Visit Otolaryngology [facility] [address] [facility] [place] [address] Hilda Whiting PA-C [facility] [address] 08/26/2024 1:40 PM EDT Office Visit Pulmonary Medicine, [facility] [address] [facility] [place] [address] Eliezer Valle MD [address] [place] [address] Scheduled Procedures Name Priority Associated Diagnoses Date/Ti me COLONOSCOPY FLEXIBLE PROXIMA L DIAGNOSTIC Recall History of colonic polyps Health Maintenance Due Date Last Done Comments Cologuard 09/22/1999 Sigmoidoscopy 09/22/1999 Fecal Occult Blood Test 04/06/2018 04/06/2017 Adult Wellness Visit 2020 Influenza Vaccine (FLU shot) (#1) 2023 COVID-19 Vaccine ( season) 2023 Postponed from 11/19/2023 (Patient Declined After Education) Diabetic Eye Exam 12/16/2023 10/17/2022, , 10/17/2022, Additional history exists Postponed from 10/18/2023 (Patient Declined After Education) Zoster Vaccines (1 of 2) 12/16/2023 Pos tponed from 2004 (Patient Declined After Education) GFR 01/31/2024 12/15/2023, 07/18, 03/30/2023, Additional history exists Diabetic Foot Exam 03/09/2024 03/09/2023, 06/08/2020 CKD PHOS USE SMARTSET 63340 03/30/202403/20, 10/25/2021, 02/12/2019, Additional history exists CKD HGB USE SMARTSET 30221 05/04/202405/04, 05/04/2023, 10/03/2022, Additional history exists HbA1c 05/30/2024 12/01/2023, 07/18, 03/30/2023, Additional history exists Albumin/Creatinine Ratio 07/30/2024 024, 10/03/2022, 10/26/2021, Additional history exists Depression Screening 11/30/2024 12/01/2023 Colonoscopy 07/02/2028 07/03/2023, 06/18, 04/20/2017, Additional history exists Colorectal Cancer Screening 07/02/2028 Lipid Panel 11/30/2028 12/01/2023, 07/18, 03/30/2023, Additional history exists DTap/Tdap Vaccines (2 - Td or Tdap) 05/15/2033 05/15/2023 AAA Screening Completed 05/12/2016 Hepatitis C Screening Completed 06/07/2018 Pneumococcal Vaccine: 65+ Years Completed 05/15/2023 RETIRED - COLONOSCOPY-EVERY 5 YRS AGES 18-100 Discontinued 07/03/2023, 07/03/2023, 04/20/2017, Additional history exists HPV (Gardasil) Vaccine Aged Out No lo nger eligible based on patient's age to complete this topic Hepatitis B Vaccine Aged Out No longe r eligible based on patient's age to complete this topic MENINGOCOCCAL (MENACTRA/MENVEO) Aged Out No longer eligible based on patient's age to complete this topic documented as of this encounter Medical Devices Not on filedocumented as of this encounter Care Teams Corporate Safety Coordinator Relationship Specialty Start Date End Date Matti Dawson DO [address] [address] PCP - General Internal Medicine 10/06/23 documented as of this encounter
--- OUTSIDE RECORDS SUMMARY | 2023-12-16 07:56 | External Medical Summary ---
Author Name Unknown Address Unknown Organization K0G:[facility] [address] [place] [address] Laboratory Report Ordering Provider Test Date Status SUNNI VELA 12/15/2023 14:35:38 Final Observation Date Value Abnormality Reference (Units ) Status SYNC LEUKOCYTES IN BLOOD BY AUTOMATED COUNT 12/15/2023 14:35:38 9.26 4.00-10.80 (K/uL) Final Neutrophils/100 leukocytes in Blood by Manual count 12/15/2023 14:35:38 87.0 Above high normal 40.0-75.0 (%) Final Lymphocytes/100 leukocytes in Blood by Manual count 12/15/2023 14:35:38 9.0 Below low normal 18.0-42.0 (%) Final Monocytes/100 leukocytes in Blood by Manual count 12/15/2023 14:35:38 4.0 1.0-11.0 (%) Final Neutrophils [#/volume] in Blood by Manual count 12/15/2023 14:35:38 8.06 Above high normal 1.80-7.70 (K/uL) Final Lymphocytes [#/volume] in Blood by Manual count 12/15/2023 14:35:38 0.83 Below low normal 1.00-4.80 (K/uL) Final Monocytes [#/volume] in Blood by Manual count 12/15/2023 14:35:38 0.37 0.00-1.10 (K/uL) Final Nucleated erythrocytes/100 leukocytes [Ratio] in Blood by Automated count 12/15/2023 14:35:38 Final [facility]forming Location [facility] [address] [place] [address]
[2023-12-16 08:12] LABS: C Reactive Protein 15.49 mg/dl (0-0.5)
[2023-12-16] MEDS ORDERED: VANCOMYCIN CONSULT ACTIVE PRN ×2 (08:16→13:26)
[2023-12-16] MEDS: OPTIRAY 320 125ml IV ONE (08:24)
[2023-12-16] MEDS: cefTRIAXone SODIUM 2,000 MG/50 ML BAG IV STA (08:48)
--- NOTE | 2023-12-16 08:56 | CT Scan Report ---
CT VENOGRAM OF THE BRAIN COMBO CLINICAL HISTORY: Headache. Vomiting. Blurry vision. COMPARISON STUDY: CT of the brain dated 12/14/2023 TECHNIQUE: Unenhanced axial CT scan of the brain is performed from the vertex to the skull base. Subs equently, CT venogram of the brain is performed following administration of 118 cc of Optiray 320. Im ages are reviewed in the axial, sagittal, and coronal planes. 3-D IMAGES are created and assessed. IV contrast was administered without complication. A dose lowering technique was utilized adhering to t he principles of ALARA. FINDINGS: Brain parenchyma: There is minimal microangiopathic change. There is no hemorrhage, mass effect, or e vidence of acute territorial ischemia by CT criteria. Elam-white matter differentiation is preserved. Mineralization is noted in the basal ganglia. There is no evidence of enhancing lesion of the venogr am phase images. No extra-axial fluid collection is seen. Ventricles, sulci, cisterns: Normal in configuration. Intracranial vasculature: The intracranial arteries are patent as visualized. Atherosclerotic calcifi cation is noted in the cavernous carotid arteries.. Dural sinuses: The superior sagittal sinus is patent, as are the transverse and sigmoid sinuses. Imag ed portions of the jugular veins are patent bilaterally. The right jugular vein is larger than the le ft. The inferior sagittal sinus and the straight sinus are patent. There is no evidence of sinus thro mbosis. Calvarium: Unremarkable. Sinuses and mastoids: The paranasal sinuses are clear. There is evidence of previous left mastoid brennan murali. The right mastoid air cells are well pneumatized. Orbits: The bony orbits are grossly intact. IMPRESSION: 1. There is no hemorrhage, mass effect, or evidence of acute territorial ischemia by CT criteria. 2. Normal CT venogram of the brain. ACT 112: Negative or not required by law. Electronically signed by: Ermias Pena M.D. 12/16/2023 8:54 AM
[2023-12-16 09:05] LABS: Magnesium 1.9 mg/dl (1.7-2.4)
[2023-12-16 09:10] LABS: Appearance Urine Clear (Clear); Bilirubin Urine Negative (Negative); Blood Urine Negative (Negative); Color Urine Yellow; Glucose Urine UA Negative (Negative); Ketones Urine Trace (Negative); Leukocyte Esterase Urine Negative (Negative); Nitrite Urine Negative (Negative); Protein Urine Negative (Negative); Specific Gravity Urine 1.031 (1.000-1.030); Urobilinogen Urine Negative (Negative)
[2023-12-16] MEDS: VANCOMYCIN HCL 1,500 MG in SODIUM CHLORIDE 0.9% 500 ML IV ONE (09:24)
[2023-12-16] MEDS: MAGNESIUM SULFATE / D5W 1 GM/100 ML BAG IV STA (09:24)
[2023-12-16] MEDS: ACETAMINOPHEN 1,000 MG/100 ML VIAL IV STA (09:24)
[2023-12-16 10:37] LABS: Adenovirus PCR Not Detected (NotDetected); Bordetella parapertussis PCR Not Detected (NotDetected); Bordetella pertussis PCR Not Detected (NotDetected); Chlamydia pneumoniae PCR Not Detected (NotDetected); Coronavirus 229E PCR Not Detected (NotDetected); Coronavirus CoV-2 (COVID19)PCR DETECTED (NotDetected); Coronavirus HKU1 PCR Not Detected (NotDetected); Coronavirus NL63 PCR Not Detected (NotDetected); Coronavirus OC43PCR Not Detected (NotDetected); Human Metapneumovirus PCR Not Detected (NotDetected); Influenza A PCR Not Detected (NotDetected); Influenza B PCR Not Detected (NotDetected); Mycoplasma pneumoniae PCR Not Detected (NotDetected); Parainfluenza Virus 1 PCR Not Detected (NotDetected); Parainfluenza Virus 2 PCR Not Detected (NotDetected); Parainfluenza Virus 3 PCR Not Detected (NotDetected); Parainfluenza Virus 4 PCR Not Detected (NotDetected); Respiratory Syncytial VirusPCR Not Detected (NotDetected); Rhinovirus/Enterovirus PCR Not Detected (NotDetected)
--- NOTE | 2023-12-16 11:40 | History & Physical Report ---
<Statement entered by Donovan Carroll MD - 12/16/23 13:56> Attending Addendum: Case reviewed with the advanced practitioner. I have personally performed a history and physical examination on the patient. I have reviewed the advanced practitioner's documentation on the date of service referenced in note, and I agree with, and take responsibility for the plan of care. Patient presents with acute on chronic frontal headaches very severe per his history though on physical exam appears non-toxic, not in severe pain though is s/p migraine cocktail w/toradol. Previously were stress related and his stress levels have been elevated recently. Query stress related tension headaches. Also dx with COVID 10d ago, slightly hypoxic, CXR positive for viral CAP though could be concominant bacterial, less likely with no leukocytosis, no tachycardia, fever, productive cough. Will cover for bacterial meningitis and pursue neurology consult and MRI. LP failed. Date of Service December 16, 2023 Assessment & Plan (1) Pneumonia: (2) COVID-19: (3) Acute respiratory failure with hypoxia: (4) Headache: Plan: Patient is 68 year old male with PMH HTN, dyslipidemia, DM II, CKD III, chronic cough, granulomatous disease, history of left mastoidectomy, GERD, history MELENDEZ in remote past presented to ER with c/o MELENDEZ x 1 week. Symptom onset 12/07/23 with scratchy throat, increased cough, fever with +COVID-19 testing. ER on 12/09/23 +COVID, CXR without infiltrate and Rx Medrol dose pack and pt decided against Paxlovid Recurrent ER visit on 12/14/23 for worsening MELENDEZ, photophobia with CT head negative for acute intracranial abnormality Today in ER afebrile, P: 85, BP: 133/78, 91% on RA. Recorded O2 sat 87% on RA up 94% on 4L oxygen. No leukocytosis, CRP: 15, procalcitonin: 0.10 Lactate: 3.4-->1.1 Biofire respiratory panel +COVID-19 PCR and no other respiratory viruses CT abd/pelvis: No acute infectious or inflammatory findings are identified in the abdomen or pelvis. Multifocal airspace consolidation is seen at both lung bases with foci of architectural distortion. Cardiomegaly. Sigmoid diverticulosis without CT evidence of acute diverticulitis. CT venogram: There is no hemorrhage, mass effect, or evidence of acute territorial ischemia by CT criteria. Normal CT venogram of the brain. CXR: appears to be infiltrates bilateral bases per my interpretation In ER given 2L NSS, Rocephin 2 GM, vancomycin IV, Benadryl, prochlorperazine, acetaminophen, magnesium sulfate 1GM Reassessment exam at 1200 patient BP: 138/111, P: 75, R: 18, 97% on 4L oxygen via oxymask. HR regular, lungs rales bilateral bases, brisk capillary refill, skin pink and warm. Able to actively ROM neck without rigidity or reported pain DDx: meningitis, migraine MELENDEZ, tension MELENDEZ, mass, etc. ER physician attempted LP however was unsuccessful Will cover empirically with Rocephin, vancomycin, ampicillin, dexamethasone MRI brain Neurology consult Pneumonia, COVID-19. Possible secondary bacterial pneumonia Airborne isolation. Today is day 9 in symptoms Supplemental oxygen Nebs as needed Incentive spirometry, flutter valve May need to consider CT chest CBC, BMP in am (5) Acute hyponatremia: Plan: Na: 132 corrected sodium. Baseline Na: 138 Has had poor oral intake Given IVF Monitor BMP (6) HTN (hypertension): Plan: Continue losartan (7) Diabetes mellitus, type II: Plan: A1c: 8.9 on 12/01/23 Hold home oral medications Novolog sliding scale per protocol (8) CKD (chronic kidney disease), stage III: Plan: Cr: 1.0. Baseline Cr: 1.2-1.4 Monitor renal functions, avoid nephrotoxic agents when possible (9) History of chronic cough: (10) History of granulomatous disease: Plan: Previously on Asmanex but hasn't been taking Nebs prn Follows with [facility] pulmonology DVT Prophylaxis Lovenox SQ Admit med/tele Full Code as per discussion with pt Follows with Dr Dawson for routine care Pt was seen and care coordinated with Dr Carroll. See addendum I spent a total of 78 minutes reviewing notes, outpatient records, labs, medication, coordinating, documenting and providing care for this patient excluding time spent in the performance of separately billed services. History of Present Illness Chief Complaint: MELENDEZ Primary Care Provider: Matti Dawson, Patient is 68 year old male with PMH HTN, dyslipidemia, DM II, CKD III, chronic cough, granulomatous disease, history of left mastoidectomy, GERD, history MELENDEZ in remote past presented to ER with c/o MELENDEZ x 1 week. History obtained from patient, patient's daughter, and outpatient chart review. Patient is from [facility]. He does not speak Pashto. For my exam patient was offered brass molder service but does not wish to use brass molder and is using his daughter as brass molder. He reports will use when his daughter is not at bedside. States symptoms started on 12/07/23 with scratchy throat, increased cough. Patient reports has chronic cough but feels was coughing more. He also reports was having fever. Per chart review was seen at [facility] ER on 12/09/23 for fever, cough, scratchy throat and was diagnosed with COVID. He was given Toradol 10mg IV, methylprednisolone 125mg IV. CXR at that time was without infiltrate. Paxlovid was prescribed but after further discussion patient decided not to take. Also prescribed Medrol. He had another [facility] ER visit on 12/14/23 for worsening MELENDEZ, photophobia. He was given Benadryl, Tylenol, Zofran, Prochlorperazine, Morphine, oxycodone. He had PCP visit on 12/15/23 for continued MELENDEZ, nausea, poor oral intake. In clinic he was given 1L NSS, Zofran, Toradol 15mg and was prescribed oxycodone 5mg 1 tab Q6H prn pain and prednisone 20mg daily for 7 days. Patient returns to ER today for continued MELENDEZ. He describes MELENDEZ is located in frontal and occipital regions. He states this headache is worse than his MELENDEZ's in the past. He feels photophobia when MELENDEZ is severe and states some blurry vision. He states his neck feels "tired" but denies neck pain or restricted ROM of neck. Reports history MELENDEZ in past but is unsure if was ever diagnosed with migraine in past. States his prior MELENDEZ's started when he was under stress with the of his and states MELENDEZ's had improved once the stress resolved and didn't have recurrent MELENDEZ's. Patient states has been under more stress recently. He states when he would get medications at ER and at PCP's office yesterday the MELENDEZ would lessen. But it returns. States temperature was 100.1F yesterday. He states he still has cough and states is a bit more than his chronic cough and reports cough productive clear/white. Denies hemoptysis. He denies CP. Denies SOB or dyspnea.He reports nausea and had some vomiting. Denies vomiting today. Reports decreased appetite. States last night did have some tea and soup. He denies abdominal to this provider. Denies recent travel, injury/trauma. Denies diarrhea, constipation, dizziness, syncope, orthopnea, palpitations, paresthesias, extremity weakness, extremity edema, rashes, urinary symptoms. In ER given Tylenol, Benadryl, prochlorperazine. He states his MELENDEZ has lessened and "took the edge off" and now feels "more like pressure and not pain". In ER given Rocephin, vancomycin and LP to be performed by ER physician Allergies Allergy/AdvReac Type Severity Reaction Status Date / Time No Known Allergies Allergy Verified 02/21/21 12:03 Home Medications Medication Instructions Recorded Confirmed Type glipizide 5 mg tablet, extended 5 mg PO DAILY 11/22/20 12/16/23 History release 24 hr pantoprazole 40 mg tablet,delayed 40 mg PO DAILY 11/22/20 12/16/23 History release albuterol sulfate 90 mcg/actuation 2 inh inhalation Q6H PRN Shortness 02/21/21 12/16/23 History aerosol inhaler (Ventolin HFA) Of Breath Or Wheezing atorvastatin 80 mg tablet 80 mg PO HS 12/14/23 12/16/23 History linagliptin 5 mg tablet (Tradjenta) 5 mg PO DAILY 12/14/23 12/16/23 History losartan 25 mg tablet 25 mg PO DAILY 12/14/23 12/16/23 History mometasone 220 mcg/actuation(120 0 inh inhalation UD 12/14/23 12/16/23 History doses)breath activated powder inhaler (Asmanex Twisthaler) benzonatate 200 mg capsule 200 mg PO BID PRN Cough 12/16/23 12/16/23 History ondansetron HCl 4 mg tablet 4 mg PO Q8H PRN n/v 12/16/23 12/16/23 History oxycodone 5 mg tablet 5 mg PO Q6H PRN Pain 12/16/23 12/16/23 History prednisone 20 mg tablet 20 mg PO UD 12/16/23 12/16/23 History Past Med/Surg History Problem List (Updated 12/16/23 @ 13:36 by Molly Machuca PA-C) Acute respiratory failure with hypoxia Pneumonia History of granulomatous disease History of chronic cough Diabetes mellitus, type II HTN (hypertension) CKD (chronic kidney disease), stage III Acute hyponatremia (Acute) COVID-19 (Acute) Headache (Acute) Cough (Acute) COVID (Acute) Lung disease Diabetes Dyslipidemia Medical History (Updated 12/16/23 @ 13:36 by Molly Machuca PA-C) Left ear hearing loss Bilateral tinnitus Vertigo Surgical History (Updated 12/16/23 @ 12:50 by Molly Machuca PA-C) History of esophagogastroduodenoscopy (EGD) History of colonoscopy Status post mastoidectomy Family History (Updated 12/16/23 @ 12:51 by Molly Machuca PA-C) Mother Diabetes Social History Smoking Status: Former smoker Preferred Language: American Communication Tools: IPad Feels Safe at Home: Yes Review of Systems Review of Systems: All systems reviewed & are unremarkable except as noted in HPI & below Physical Exam Physical Exam: General: no acute distress, non-toxic appearance, WDWN Head: normocephalic, atraumatic Eyes: PERRL, EOM's intact, conjunctiva non-injected, anicteric ENT: normal inspection external ears, nose, mucous membranes moist Neck: supple, trachea midline, non-tender to palpation, ROM intact Lungs: no respiratory distress on current 4L O2 with O2 sat: 97%, +rales bilateral lower lung hutchins, no wheezing noted CV: RRR, no murmur, no pretibial edema Abd: normal BS, soft, non-tender to palpation Ext: no cyanosis, no calf tenderness Neuro: A&O x 3, no focal deficits noted, normal affect Skin: warm, dry Results & Data Results & Data Vital Signs (Past 12 Hours) Vital Signs Temp Pulse Pulse Resp BP BP Pulse Ox 12/16/23 09:27 76 12/16/23 08:40 94 12/16/23 08:38 73 19 133/76 87 L 12/16/23 08:33 95 H 25 H 12/16/23 08:00 77 21 90 12/16/23 08:00 133/76 12/16/23 08:00 133/76 12/16/23 07:54 79 21 12/16/23 07:45 83 22 97 12/16/23 07:30 140/79 12/16/23 07:30 140/79 12/16/23 07:30 140/79 12/16/23 07:30 80 22 93 12/16/23 07:24 77 25 H 90 12/16/23 07:24 78 22 92 12/16/23 07:21 144/74 H 12/16/23 07:21 144/74 H 12/16/23 07:21 144/74 H 12/16/23 06:48 77 15 96 12/16/23 06:45 76 19 96 12/16/23 06:18 74 22 97 12/16/23 06:09 84 23 95 12/16/23 05:54 80 17 95 12/16/23 05:51 159/93 H 12/16/23 05:51 159/93 H 12/16/23 05:51 159/93 H 12/16/23 05:51 84 12/16/23 05:37 37.1 C 85 133/78 91 O2 Del Method O2 Flow Rate 12/16/23 09:27 12/16/23 08:40 Nasal Cannula 4 12/16/23 08:38 Nasal Cannula 2 12/16/23 08:33 12/16/23 08:00 12/16/23 08:00 12/16/23 08:00 12/16/23 07:54 12/16/23 07:45 12/16/23 07:30 12/16/23 07:30 12/16/23 07:30 12/16/23 07:30 12/16/23 07:24 12/16/23 07:24 Nasal Cannula 2 12/16/23 07:21 12/16/23 07:21 12/16/23 07:21 12/16/23 06:48 12/16/23 06:45 12/16/23 06:18 12/16/23 06:09 12/16/23 05:54 12/16/23 05:51 12/16/23 05:51 12/16/23 05:51 12/16/23 05:51 12/16/23 05:37 Room Air Laboratory Results Short CBC 12/16/23 Range/Units 06:00 WBC 6.64 (4.8-10.8) K/ul Hgb 13.9 L (14.0-18.0) g/dl Hct 39.8 L (42.0-52.0) % Plt Count 189 (130-400) K/uL BMP 12/16/23 06:00 Sodium 131 L Potassium 4.1 Chloride 101 Carbon Dioxide 22 BUN 18 Creatinine 1.01 Glucose 143 H Calcium 8.1 L Liver Function 12/16/23 Range/Units 06:00 Total Bilirubin 0.4 (0.2-1.0) mg/dl AST 36 (13-39) U/L ALT 28 (7-52) U/L Alkaline Phosphatase 36 (34-104) U/L Albumin 3.3 L (3.4-5.0) gm/dl Urine 12/16/23 Range/Units 09:04 Urine Color Yellow Urine Appearance Clear (Clear) Urine pH 5.0 (4.5-7.5) Ur Specific [place] 1.031 H (1.000-1.030) Urine Protein Negative (Negative) Urine Glucose (UA) Negative (Negative) Diagnostic Findings Abdomen/Pelvis CT 12/16/23 07:31 CT SCAN OF THE ABDOMEN AND PELVIS WITH IV CONTRAST CLINICAL HISTORY: Right upper quadrant abdominal pain. COMPARISON STUDY: Chest CT dated 02/21/2021. TECHNIQUE: Following the IV administration of 118 cc of Optiray 320, CT scan of the abdomen and pelvis is performed from the lung bases to the proximal femora. Images are reviewed in the axial, sagittal, and coronal planes. IV contrast was administered without complication. A dose lowering technique was utilized adhering to the principles of ALARA. The examination is degraded by streak artifact from the right arm which could not be elevated above the abdomen. There is also motion artifact. CT DOSE: 2718.69 mGy.cm FINDINGS: Lung bases: The heart is enlarged and without pericardial effusion. The coronary arteries are densely calcified. Airspace consolidation is seen at both lung bases with foci of architectural distortion. No pleural effusion is identified. There is a znupf-ms-npidckrq hiatal hernia. Liver: The contrast-enhanced liver is normal in size and contour. Attenuation is diminished suggesting steatosis. There is no intrahepatic biliary ductal dilatation. The hepatic veins and portal veins are patent. Gallbladder: Unremarkable. Spleen: Normal in size and attenuation. Pancreas: Unremarkable. Adrenal glands: Unremarkable. Kidneys: The contrast enhanced kidneys are normal in size and without hydronephrosis. The kidneys enhance symmetrically. Abdominal vasculature: The abdominal aorta is normal in course and caliber noting mild to moderate atherosclerotic calcification. Bowel: There is jvnj-aj-xedieoog sigmoid diverticulosis without CT evidence of acute diverticulitis. No bowel obstruction is seen. The appendix is well- visualized and normal. Peritoneum: There is no intraperitoneal free air or abdominal ascites. There is a fat-containing umbilical hernia. Lymphadenopathy: None. Pelvic viscera: The prostate gland is enlarged and heterogeneous. The bladder wall is thickened/trabeculated indicating chronic outlet obstruction. There are small bilateral fat-containing groin hernias. Skeletal structures: The skeletal structures are osteopenic. There is mild to moderate lumbosacral spondylosis. No lytic or blastic lesions are seen. IMPRESSION: 1. No acute infectious or inflammatory findings are identified in the abdomen or pelvis. 2. Multifocal airspace consolidation is seen at both lung bases with foci of architectural distortion. This was not seen on 02/21/2021 and favors multifocal pneumonia, possibly viral. Clinical correlation will be essential and radiographic follow-up to resolution is recommended. 3. Cardiomegaly. 4. Sigmoid diverticulosis without CT evidence of acute diverticulitis. 5. Additional findings as above. ACT 112: Negative or not required by law. Electronically signed by: Ermias Pena M.D. 12/16/2023 9:[address] 12/16/23 07:31 CT VENOGRAM OF THE BRAIN COMBO CLINICAL HISTORY: Headache. Vomiting. Blurry vision. COMPARISON STUDY: CT of the brain dated 12/14/2023 TECHNIQUE: Unenhanced axial CT scan of the brain is performed from the vertex to the skull base. Subsequently, CT venogram of the brain is performed following administration of 118 cc of Optiray 320. Images are reviewed in the axial, sagittal, and coronal planes. 3-D IMAGES are created and assessed. IV contrast was administered without complication. A dose lowering technique was utilized adhering to the principles of ALARA. FINDINGS: Brain parenchyma: There is minimal microangiopathic change. There is no hemorrhage, mass effect, or evidence of acute territorial ischemia by CT criteria. Elam-white matter differentiation is preserved. Mineralization is noted in the basal ganglia. There is no evidence of enhancing lesion of the venogram phase images. No extra-axial fluid collection is seen. Ventricles, sulci, cisterns: Normal in configuration. Intracranial vasculature: The intracranial arteries are patent as visualized. Atherosclerotic calcification is noted in the cavernous carotid arteries.. Dural sinuses: The superior sagittal sinus is patent, as are the transverse and sigmoid sinuses. Imaged portions of the jugular veins are patent bilaterally. The right jugular vein is larger than the left. The inferior sagittal sinus and the straight sinus are patent. There is no evidence of sinus thrombosis. Calvarium: Unremarkable. Sinuses and mastoids: The paranasal sinuses are clear. There is evidence of previous left mastoid surgery. The right mastoid air cells are well pneumatized. Orbits: The bony orbits are grossly intact. IMPRESSION: 1. There is no hemorrhage, mass effect, or evidence of acute territorial ischemia by CT criteria. 2. Normal CT venogram of the brain. ACT 112: Negative or not required by law. Electronically signed by: Ermias Pena M.D. 12/16/2023 8:54 AM (4) Headache Headache chronicity pattern: acute headache Headache type: unspecified Intractability: intractable Qualified Code(s): R51.9 - Headache, unspecified
--- NOTE | 2023-12-16 12:15 | CT Scan Report ---
CT SCAN OF THE ABDOMEN AND PELVIS WITH IV CONTRAST CLINICAL HISTORY: Right upper quadrant abdominal pain. COMPARISON STUDY: Chest CT dated 02/21/2021. TECHNIQUE: Following the IV administration of 118 cc of Optiray 320, CT scan of the abdomen and pelv is is performed from the lung bases to the proximal femora. Images are reviewed in the axial, sagitta l, and coronal planes. IV contrast was administered without complication. A dose lowering technique w as utilized adhering to the principles of ALARA. The examination is degraded by streak artifact from the right arm which could not be elevated above the abdomen. There is also motion artifact. CT DOSE: 2718.69 mGy.cm FINDINGS: Lung bases: The heart is enlarged and without pericardial effusion. The coronary arteries are densely calcified. Airspace consolidation is seen at both lung bases with foci of architectural distortion. No pleural effusion is identified. There is a nzqhn-ha-tmlzmzlh hiatal hernia. Liver: The contrast-enhanced liver is normal in size and contour. Attenuation is diminished suggestin g steatosis. There is no intrahepatic biliary ductal dilatation. The hepatic veins and portal veins a re patent. Gallbladder: Unremarkable. Spleen: Normal in size and attenuation. Pancreas: Unremarkable. Adrenal glands: Unremarkable. Kidneys: The contrast enhanced kidneys are normal in size and without hydronephrosis. The kidneys enh ance symmetrically. Abdominal vasculature: The abdominal aorta is normal in course and caliber noting mild to moderate at herosclerotic calcification. Bowel: There is shym-uk-ttrqhzhn sigmoid diverticulosis without CT evidence of acute diverticulitis. No bowel obstruction is seen. The appendix is well-visualized and normal. Peritoneum: There is no intraperitoneal free air or abdominal ascites. There is a fat-containing umbi lical hernia. Lymphadenopathy: None. Pelvic viscera: The prostate gland is enlarged and heterogeneous. The bladder wall is thickened/trabe culated indicating chronic outlet obstruction. There are small bilateral fat-containing groin hernias . Skeletal structures: The skeletal structures are osteopenic. There is mild to moderate lumbosacral sp ondylosis. No lytic or blastic lesions are seen. IMPRESSION: 1. No acute infectious or inflammatory findings are identified in the abdomen or pelvis. 2. Multifocal airspace consolidation is seen at both lung bases with foci of architectural distortion . This was not seen on 02/21/2021 and favors multifocal pneumonia, possibly viral. Clinical correlatio n will be essential and radiographic follow-up to resolution is recommended. 3. Cardiomegaly. 4. Sigmoid diverticulosis without CT evidence of acute diverticulitis. 5. Additional findings as above. ACT 112: Negative or not required by law. Electronically signed by: Ermias Pena M.D. 12/16/2023 9:05 AM
[2023-12-16] MEDS ORDERED: AMPICILLIN SOD 1 GM VIAL IV ONE (12:34)
[2023-12-16] MEDS ORDERED: DEXAMETHASONE SOD INJ 4 MG/ML VIAL IV STA (12:34)
--- NOTE | 2023-12-16 13:15 | Emergency Department Note ---
ED Visit Note Lumbar Puncture performed by Dr. Campo Indication: Headache. Verbal consent was obtained after the risks and benefits were explained, including but not limited to headache, bleeding/clotting, scarring, infection, pain, and bone/joint/nerve damage. At this time, the risks of the procedure are less than the risks of NOT performing the procedure. A time out was taken and the correct patient and site identified. The patient was placed in the [] position and the back was prepped with betadine and draped in the standard fashion. The L3 intervertebral space was identified, anesthetized locally with 1% lidocaine without epinephrine, and the spinal needle was inserted through the skin with the bevel parallel to the dural fibers. The needle was carefully advanced but no CSF was obtained. The stylet was replaced and the needle was removed. A bandaid was placed and the patient was placed in the supine position. The patient tolerated the procedure well and there were no complications. Of note I had been asked by one of the other ED physicians Dr. Barrientos who is the primary data support analyst of this patient to attempt an LP after she was unable to obtain CSF. The inpatient service had requested that the patient have LP performed due to concerns for headache in the setting of COVID and fever. I did perform the procedure under sterile technique but was unsuccessful in obtaining CSF. .
[2023-12-16] MEDS ORDERED: MAGNESIUM HYDROXIDE SUSP 30 ML UDC PO PRN (13:26)
[2023-12-16] MEDS ORDERED: POLYETHYLENE (MIRALAX) 17 GM PACK PO PRN (13:26)
[2023-12-16] MEDS ORDERED: GLUCOSE 10 TAB/TUBE PO PRN (13:26)
[2023-12-16] MEDS ORDERED: GLUCOSE 40% GEL 15 GM TUBE PO PRN (13:26)
[2023-12-16] MEDS ORDERED: GLUCAGON FOR INJ 1 MG VIAL SQ PRN (13:26)
[2023-12-16] MEDS ORDERED: CARBOHYDRATES FOR HYPOGLYCEMIA PO PRN (13:26)
[2023-12-16] MEDS ORDERED: DEXTROSE 50% 50 ML SYRINGE IV PRN (13:26)
--- NOTE | 2023-12-16 13:43 | Pharmacy Report ---
Pharmacy PK ABX Note - Date of Service December 16, 2023 - Assessment and Plan Assessment 68 year old M receiving Vancomycin, Ceftriaxone and Ampicillin for treatment of empiric meningitis. * Day #1 of antimicrobial therapy. * Labs/Vitals: Afebrile. No leukocytosis. Lactate elevated but resolved with fluids. Procal 0.10. SCr at 1.01, unknown baseline. * Micro: Blood culture pending. Patient has been covid + since 12/09/23. LP attempted in ED but failed. Plan Vancomycin * Loading dose: 1500 mg IV x 1 * Maintenance dose: 1000 mg IV every 12 hours * Regimen is predicted to achieve target AUC/HERNANDEZ of 400-600 mg/L.hr * No level will be ordered unless therapy extends beyond 48 hours Ceftriaxone * 2000 mg IV every 12 hours Ampicillin * 2000 mg IV every 4 hours Pharmacy will continue to follow and will adjust dose/frequency as necessary. Thank you. Pharmacy has transitioned to AUC monitoring for vancomycin. AUC/HERNANDEZ is the preferred PK/PD target and is associated with decreased risk of nephrotoxicity compared to traditional trough targets.
[2023-12-16] MEDS: SODIUM CHLORIDE 0.9% 1,000 ML IV SCH (13:47)
[2023-12-16] MEDS: ONDANSETRON INJ 2 MG/ML 2 ML VIAL IV PRN (13:50)
[2023-12-16] MEDS: DEXAMETHASONE SOD INJ 4 MG/ML VIAL IV STA (13:52)
[2023-12-16] MEDS: ENOXAPARIN INJ 40 MG/0.4 ML SYR SQ SCH (13:57)
[2023-12-16] MEDS: AMPICILLIN 2,000 MG in SODIUM CHLOR 0.9% MINI-B 100 ML IV SCH (14:02)
[2023-12-16] MEDS: MoRPHine SULFATE 2 MG/ML CARP IV PRN (14:02)
--- NOTE | 2023-12-16 14:09 | XRay Report ---
BONY ORBITS 3 VIEWS CLINICAL HISTORY: MRI clearance. FINDINGS: 3 views of the bony orbits are obtained. No prior studies are available for comparison at t he time of dictation. There is no radiodense/metallic foreign body seen in the region of the bony orb its. The bony orbits are intact as imaged. The visualized paranasal sinuses and the mastoid air cells appear clear. The imaged calvarium appears intact. IMPRESSION: There is no radiodense/metallic foreign body seen in the region of the bony orbits. ACT 112: Negative or not required by law. Electronically signed by: Ermias Pena M.D. 12/16/2023 2:08 PM
--- NOTE | 2023-12-16 14:48 | XRay Report ---
SINGLE VIEW CHEST CLINICAL HISTORY: Hypoxia FINDINGS: An AP, portable, upright chest radiograph is compared to study dated 12/09/2023 and correlat ed with chest CT dated 02/21/20[address] as well as abdominal CT performed the same day 12/16/2023. The heart is enlarged. There is pulmonary vascular congestion. Multifocal airspace consolidation is seen throug hout both lungs. The a calcified granuloma is noted at the right apex. No large pleural effusion or p neumothorax is seen. The skeletal structures are osteopenic. The bony thorax is grossly intact. IMPRESSION: 1. Cardiomegaly with pulmonary vascular congestion. 2. Extensive bilateral airspace consolidation likely represents multifocal pneumonia when correlated with today's abdominal CT. A component of superimposed pulmonary edema is not excluded. This is new f rom 12/09/2023. Clinical correlation will be essential and radiographic follow-up to resolution is rec ommended. ACT 112: Negative or not required by law. Electronically signed by: Ermias Pena M.D. 12/16/2023 9:46 AM
[2023-12-16] MEDS: INSULIN ASPART PER UNIT CHARGE SC SCH (15:26)
[2023-12-16] MEDS: ALBUT/IPRATROP 3MG/0.5MG NEB 3 ML VIAL NEB PRN (16:01)
[2023-12-16] MEDS: BENZONATATE 100 MG CAPSULE PO PRN (16:01)
[2023-12-16] MEDS ORDERED: AMPICILLIN SOD 1 GM VIAL IV SCH (16:15)
[2023-12-16] MEDS: oxyCODONE HCL IR 5 MG TAB (IMMEDIATE RELEASE) PO PRN (17:19)
[2023-12-16] MEDS ORDERED: DEXAMETHASONE SOD INJ 4 MG/ML VIAL IV SCH (18:30)
[2023-12-16] MEDS: ALBUT/IPRATROP 3MG/0.5MG NEB 3 ML VIAL NEB STA (18:39)
[2023-12-16] MEDS: cefTRIAXone SODIUM 2,000 MG/50 ML BAG IV SCH (19:44)
[2023-12-16] MEDS: dexAMETHasone 10 MG in SYRINGE 0 ML IV SCH (19:45)
[2023-12-16] MEDS: VANCOMYCIN HCL 1,000 MG in SODIUM CHLORIDE 0.9% 250 ML IV SCH (20:26)
[2023-12-16] MEDS: ATORVASTATIN 40 MG TAB PO SCH (22:20)
[2023-12-17 03:49] LABS: Hematocrit (blood only) 37.9 % (42.0-52.0); Hemoglobin 12.9 g/dl (14.0-18.0); Mean Corpuscular Hemoglobin 29.9 pg (25.0-34.0); Mean Corpuscular Volume 87.9 fL (80.0-100.0); Mean Platelet Volume 9.4 fL (9.4-12.4); Platelet Count 171 K/uL (130-400); RDW Coefficient of Variation 12.7 % (11.5-14.5); RDW Standard Deviation 41.4 fL (36.4-46.3); Red Blood Count 4.31 M/uL (4.70-6.10); White Blood Count 2.68 K/ul (4.8-10.8)
[2023-12-17 04:07] LABS: BUN Creatinine Ratio 14.3 (10-20); Calcium 7.5 mg/dl (8.6-10.3); Creatinine Clr Calc Pharmacy 72.5 ml/min; Est GFR (African American) 83.5 ml/min; Est GFR (Non-African American) 72.1 ml/min; Potassium 4.2 mmol/L (3.5-5.1)
[2023-12-17] MEDS: FUROSEMIDE INJ 20 MG/2 ML VIAL IV ONE (07:33)
[2023-12-17] MEDS: PANTOprazole 40 MG TAB PO SCH (08:13)
[2023-12-17] MEDS: LOSARTAN POTASSIUM 25 MG TAB PO SCH (08:14)
[2023-12-17] MEDS: guaiFENesin 600 MG TABCR PO SCH (08:53)
[2023-12-17] MEDS ORDERED: SODIUM CHLORIDE 0.65% NA SOLN 45 ML (OCEAN) PRN (09:28)
--- NOTE | 2023-12-17 10:48 | Hospitalist Progress Note ---
Date of Service December 17, 2023 Assessment & Plan (1) Pneumonia: (2) COVID-19: (3) Acute respiratory failure with hypoxia: (4) Headache: (5) Acute hyponatremia: (6) HTN (hypertension): (7) Diabetes mellitus, type II: (8) CKD (chronic kidney disease), stage III: (9) History of chronic cough: (10) History of granulomatous disease: Plan: Ms. Peoples is a 68 year old male with PMH HTN, dyslipidemia, DM II, CKD III, chronic cough, granulomatous disease, history of left mastoidectomy, GERD, history MELENDEZ in remote past presented to ER with c/o MELENDEZ x 1 week and shortness of breath. Patient found to be acutely hypoxic and COVID positive. LP pursued in ED, however, failed. Patient empirically treated for meningitis. Patient presented to ED on 12/09/23 12/09/23 +COVID, CXR without infiltrate and Rx Medrol dose pack and pt decided against Paxlovid Recurrent ER visit on 12/14/23 for worsening MELENDEZ, photophobia with CT head negative for acute intracranial abnormality Patient with concerning findings on imaging, plan for pulm consult and close monitoring as progression of disease seems ominous given XR and CT preliminary review. #Acute hypoxic respiratory failure, multifactorial, c/f ARDS? #COVID pneumonia, ?superimposed bacterial pneumonia COVID +, diffuse multifocal infiltrates ?pulm edema, Low suspicion for HFpEF contributing--diastolic dysfunction noted, BNP WNL, low H2FPEF score (28.2%), no response to lasi No leukocytosis, CRP: 15, procalcitonin: 0.10 Lactate: 3.4-->1.1 Biofire respiratory panel +COVID-[address] abd/pelvis: No acute infectious or inflammatory findings are identified in the abdomen or pelvis. Multifocal airspace consolidation is seen at both lung bases with foci of architectural distortion. Cardiomegaly. Sigmoid diverticulosis without CT evidence of acute diverticulitis. CXR: acute onset bilateral infiltrates ABG 7.48/30/62/22 on 10 L BNP 84, some diastolic dysfx on ECHO, no response from resp status to 1x 20mg Lasix despite good UOP Continue empiric abx with Rocephin, vancomycin, ampicillin, dexamethasone Continue Airborne isolation Supplemental oxygen, wean O2 >92% CPAP if O2 requires increase Nebs as needed Incentive spirometry, flutter valve Ordered chest CT, follow up imaging Decadron q 6h (mostly for empiric meningitis coverage, however hopefully will aid in resp status) CBC, BMP in am Hypertonic nebs, mucolytic, and pulm toilet #Acute headache #History of Migraine ER physician attempted LP however was unsuccessful CT venogram: There is no hemorrhage, mass effect, or evidence of acute territorial ischemia by CT criteria. Normal CT venogram of the brain. Patient reports marginal improvement, but worsened 2/2 coughing MRI brain ordered, awaiting radiology approval given hx of surgical intervention (mastoidectomy 2016) Neurology consulted, reviwed recs: -Will plan for IR LP to conclusively r/o meningitis -Will add 250mg depakote BID for 2 days to continue 2-3 weeks (reeval in 2 days if dose needs increased to 500 BID) -Plan for steroid taper contingent on above resp recovery #Cough Variant Asthma #Granulomatous disease #s/p left mastoidectomy 2016 #[employer] Worker's lung CT chestfrom 02/2021 report only shows calcified mediastinal LNs, biapical scarring, right lung granuloma 1 cm. Mild haziness at bases bilaterally. No focal consolidations. s/p allergy panel IgE negative, follows Dr. Valle 2/2 trace granulomatous disease PFT 2021 normal nebs prn Continue with Benzonatate 200 mg Q 12 hx of [place] allergy panel, IgE Negative continue Protonix for chronic cough #Acute Hyponatremia *improving Na: 136 corrected for hyperglycemia s/p IVF Encourage PO Trend BMP qd #HTN Continue losartan #CKDIII Cr: 1.0. Baseline Cr: 1.2-1.4 Monitor renal functions, avoid nephrotoxic agents when possible DVT Prophylaxis Lovenox SQ PCU Full Code Follows with Dr Dawson for routine care Admission and Anticipated Discharge Date Admission Date: December 16, 2023 Subjective Increasing oxygen requirements overnight Reports ongoing headache, but worsened because of cough and breathing difficulty States he hasn't been febrile overnight and cough is nonproductive Physical Exam Constitutional: tired appearing, but overall nontoxic, mild increased resp effort with talking Respiratory: dimished bilaterally, exam limited 2.2 cough in inhalation Cardiovascular: RRR, no murmur, no edema Gastrointestinal (Abdomen): normal bowel sounds, soft, nontender, no hepatosplenomegaly Neurologic: PERRL, EOMI, accommodation nl, no face palsy, no dysarthria Results & Data Results & Data Vital Signs (Past 12 Hours) Vital Signs Temp Pulse Pulse Resp BP BP Pulse Ox 12/17/23 10:31 36.8 C 83 24 150/84 H 91 12/17/23 09:15 12/17/23 09:14 78 20 147/80 H 94 12/17/23 08:30 12/17/23 08:00 87 28 H 158/91 H 90 12/17/23 07:44 84 27 H 90 12/17/23 07:00 36.6 C 94 H 30 H 144/81 H 90 12/17/23 07:00 97 H 12/17/23 01:57 67 24 118/65 96 12/17/23 00:14 12/16/23 23:03 92 H 12/16/23 23:00 82 23 143/85 H 97 O2 Del Method O2 Flow Rate 12/17/23 10:31 Oxymask 10 12/17/23 09:15 Oxymask 12 12/17/23 09:14 Oxymask 12 12/17/23 08:30 Oxymask 12/17/23 08:00 Oxymask 12 12/17/23 07:44 Oxymask 12 12/17/23 07:00 Oxymask 10 12/17/23 07:00 12/17/23 01:57 Oxymask 7 12/17/23 00:14 Oxymask 9 12/16/23 23:03 12/16/23 23:00 Oxymask 9 Laboratory Results Short CBC 12/17/23 Range/Units 03:33 WBC 2.68 L (4.8-10.8) K/ul Hgb 12.9 L (14.0-18.0) g/dl Hct 37.9 L (42.0-52.0) % Plt Count 171 (130-400) K/uL BMP 12/17/23 03:33 Sodium 134 L Potassium 4.2 Chloride 104 Carbon Dioxide 22 BUN 15 Creatinine 1.05 Glucose 220 H Calcium 7.5 L Medications Administered Home Medications Medication Instructions Recorded Confirmed Last Taken glipizide 5 mg tablet, extended 5 mg PO DAILY 11/22/20 12/16/23 11/22/20 release 24 hr pantoprazole 40 mg tablet,delayed 40 mg PO DAILY 11/22/20 12/16/23 11/22/20 release albuterol sulfate 90 mcg/actuation 2 inh inhalation Q6H PRN Shortness 02/21/21 12/16/23 Unknown aerosol inhaler (Ventolin HFA) Of Breath Or Wheezing atorvastatin 80 mg tablet 80 mg PO HS 12/14/23 12/16/23 Unknown linagliptin 5 mg tablet (Tradjenta) 5 mg PO DAILY 12/14/23 12/16/23 12/14/23 losartan 25 mg tablet 25 mg PO DAILY 12/14/23 12/16/23 12/14/23 mometasone 220 mcg/actuation(120 0 inh inhalation UD 12/14/23 12/16/23 Unknown doses)breath activated powder inhaler (Asmanex Twisthaler) benzonatate 200 mg capsule 200 mg PO BID PRN Cough 12/16/23 12/16/23 Unknown ondansetron HCl 4 mg tablet 4 mg PO Q8H PRN n/v 12/16/23 12/16/23 Unknown oxycodone 5 mg tablet 5 mg PO Q6H PRN Pain 12/16/23 12/16/23 Unknown prednisone 20 mg tablet 20 mg PO UD 12/16/23 12/16/23 Unknown Active Medications Generic Name Dose Route Start Last Admin Trade Name Freq PRN Reason Stop Dose Admin Albuterol 3 ml 12/16/23 13:26 12/17/23 06:36 Albut/Ipratrop 3mg/0.5mg Neb 3 Ml Vial NEB 01/15/24 13:25 3 ml QIDR PRN Administration Shortness Of Breath Or Wheezing Protocol Atorvastatin Calcium 80 mg 12/16/23 21:00 12/16/23 22:20 Atorvastatin 40 Mg Tab PO 01/15/24 20:59 80 mg HS CHUYITA Administration Benzonatate 200 mg 12/16/23 13:26 12/16/23 16:01 Benzonatate 100 Mg Capsule PO 01/15/24 13:25 200 mg BID PRN Administration Cough Enoxaparin Sodium 40 mg 12/16/23 13:30 12/16/23 13:57 Enoxaparin Inj 40 Mg/0.4 Ml Syr SQ 01/15/24 13:29 40 mg Q24H CHUYITA Administration Guaifenesin 1,200 mg 12/17/23 09:00 12/17/23 08:53 Guaifenesin 600 Mg Tabcr PO 01/16/24 08:59 1,200 mg Q12 CHUYITA Administration Ampicillin Sodium 2,000 mg/ 100 mls @ 200 mls/hr 12/16/23 13:30 12/17/23 08:48 Sodium Chloride IV 12/26/23 13:29 Infused Q4H CHUYITA Infusion Ceftriaxone Sodium 2,000 mg in 50 mls @ 100 mls/hr 12/16/23 20:00 12/17/23 08:03 Rocephin IV 12/18/23 19:59 Infused Q12H CHUYITA Infusion Vancomycin HCl 1,000 mg/ 270 mls @ 200 mls/hr 12/16/23 20:00 12/17/23 09:32 Sodium Chloride IV 12/18/23 19:59 Infused Q12H CHUYITA Infusion Dexamethasone 10 mg/ Syringe 2.5 mls @ 1 mls/min 12/16/23 20:00 12/17/23 08:08 IV 12/20/23 19:59 1 mls/min Q6H CHUYITA Administration Insulin Aspart 0 units 12/16/23 13:35 12/17/23 10:30 Insulin Aspart Per Unit Charge SC 01/15/24 13:34 Not Given ACHS CHUYITA Losartan Potassium 25 mg 12/17/23 09:00 12/17/23 08:14 Losartan Potassium 25 Mg Tab PO 01/16/24 08:59 25 mg DAILY CHUYITA Administration Morphine Sulfate 2 mg 12/16/23 13:26 12/16/23 14:02 Morphine Sulfate 2 Mg/Ml Carp IV 12/30/23 13:25 2 mg Q4H PRN Administration Severe Pain (Scale 7, 8, 9,10) Ondansetron HCl 4 mg 12/16/23 13:26 12/16/23 13:50 Ondansetron Inj 2 Mg/Ml 2 Ml Vial IV 01/15/24 13:25 4 mg Q6H PRN Administration Nausea Oxycodone HCl 5 mg 12/16/23 13:26 12/17/23 10:40 Oxycodone Hcl Ir 5 Mg Tab (Immediate Release) PO 12/30/23 13:25 5 mg Q6H PRN Administration Moderate Pain (Scale 4, 5, 6) Pantoprazole Sodium 40 mg 12/17/23 09:00 12/17/23 08:13 Pantoprazole 40 Mg Tab PO 01/16/24 08:59 40 mg DAILY CHUYITA Administration (4) Headache Headache chronicity pattern: acute headache Headache type: unspecified Intractability: intractable Qualified Code(s): R51.9 - Headache, unspecified
[2023-12-17 11:13] LABS: Base Excess ABG -0.3 mEq/L (-9-1.8); HCO3 ABG 22 mmol/L (19-24); Oxygen Saturation ABG 93.9 % (90-95); PCO2 ABG 30 mmHg (35-46); PO2 ABG 62 mmHg (80-95); pH ABG 7.48 (7.35-7.45)
[2023-12-17 11:15] LABS: Allen Test Pos (Pos)
[2023-12-17] MEDS ORDERED: REMDESIVIR 200 MG in SODIUM CHLORIDE 0.9% 210 ML IV STA (11:52)
--- NOTE | 2023-12-17 12:07 | Neurology Consultation ---
Date of Consultation December 17, 2023 Assessment & Plan (1) Headache: (2) COVID-19: (3) Bilateral pneumonia: Plan 68-year-old male with refractory headache in the context of acute COVID infection complicated by pneumonia. I doubt he has meningitis. He has an intact neurological examination and has no nuchal rigidity. There is no evidence of hemorrhage or evolving process on CT of the head. No evidence of cerebral venous thrombosis on CT venogram of the brain. He does relay a remote history of migraine. His current headache does have some migrainous features, although again, occurs in the context of acute COVID infection and bilateral multifocal pneumonia and underlying COPD. If able, a brain MRI with and without contrast would be useful to exclude acute or subacute stroke and further rule out any imaging evidence of meningitis. He could have mild aseptic meningitis due to COVID infection. Again, however, he has an intact mental status and no nuchal rigidity on examination. Although I expect his headache to eventually resolve as he recovers from COVID related pneumonia, his recovery may be prolonged and it would be reasonable to try a preventative medication for his headache. Because he does have a history of migraine, I would recommend starting a low-dose of Depakote DR, 250 mg twice daily for the next 2 days, if no improvement, may increase the dosage to 500 mg twice daily. He may be able to discontinue the Depakote in 2 to 3 weeks, deptyson woody on his status. May continue with dexamethasone while in the hospital. Remember to prescribe a corticosteroid taper at discharge. Broad-spectrum coverage for meningitis may not be needed. However, a lumbar puncture could be completed under fluoroscopy tomorrow in radiology to more conclusively rule out meningitis or encephalitis. Please call with any questions. History of Present Illness Reason for Consultation: Refractory headache Requesting Physician: Carly Attending Physician: Telma Covington MD History of Present Illness The patient is a 68-year-old Slovak-speaking male (his daughter is at bedside and acts as his captain room service per his request) who had initially presented to the emergency department on December 09, 2023 in the context of persistent cough, history of bronchitis, asthma, positive COVID test at home. He was treated with corticosteroids and instructed to use [id number] cough suppressants and discharged. He presented again on December 13 with persistent progressive headache, primarily frontal, some associated nausea and light sensitivity. His headache And worse with coughing and bending forward. His symptoms were treated and he was discharged. He presented again on December 15 with persistent headache, primarily frontal, no associated neck pain or stiffness. He had been having intermittent fevers in the context of his recent COVID infection complicated by bilateral pneumonia. He has not had any syncope, collapse, delirium, focal weakness, or other worrisome neurologic symptoms. He does relay a remote history of migraine, last episode occurred [address] of the head completed December 14, 2023 was negative for hemorrhage or acute process. There is mild age appropriate atrophy and chronic small vessel ischemic change. A CT venogram of the brain was completed December 16, 2023, no abnormalities. I independently reviewed these images. Allergies Allergy/AdvReac Type Severity Reaction Status Date / Time No Known Allergies Allergy Verified 02/21/21 12:03 Home Medications Medication Instructions Recorded Confirmed Type glipizide 5 mg tablet, extended 5 mg PO DAILY 11/22/20 12/16/23 History release 24 hr pantoprazole 40 mg tablet,delayed 40 mg PO DAILY 11/22/20 12/16/23 History release albuterol sulfate 90 mcg/actuation 2 inh inhalation Q6H PRN Shortness 02/21/21 12/16/23 History aerosol inhaler (Ventolin HFA) Of Breath Or Wheezing atorvastatin 80 mg tablet 80 mg PO HS 12/14/23 12/16/23 History linagliptin 5 mg tablet (Tradjenta) 5 mg PO DAILY 12/14/23 12/16/23 History losartan 25 mg tablet 25 mg PO DAILY 12/14/23 12/16/23 History mometasone 220 mcg/actuation(120 0 inh inhalation UD 12/14/23 12/16/23 History doses)breath activated powder inhaler (Asmanex Twisthaler) benzonatate 200 mg capsule 200 mg PO BID PRN Cough 12/16/23 12/16/23 History ondansetron HCl 4 mg tablet 4 mg PO Q8H PRN n/v 12/16/23 12/16/23 History oxycodone 5 mg tablet 5 mg PO Q6H PRN Pain 12/16/23 12/16/23 History prednisone 20 mg tablet 20 mg PO UD 12/16/23 12/16/23 History Patient History Medical History (Updated 12/16/23 @ 13:52 by Sobia Barrientos MD) Left ear hearing loss Bilateral tinnitus Vertigo Surgical History (Updated 12/16/23 @ 12:50 by Molly Machuca PA-C) History of esophagogastroduodenoscopy (EGD) History of colonoscopy Status post mastoidectomy Family History (Updated 12/16/23 @ 12:51 by Molly Machuca PA-C) Mother Diabetes Social History Smoking Status: Former smoker Hx Alcohol Use: No Hx Substance Use: No Preferred Language: Slovak Communication Ability: Effective Communication Tools: IPad Milk Vendor Required: Yes Beliefs That Will Affect Care: Restoration Current Living Situation: Alone Feels Safe at Home: Yes Assistive Devices: Cane, Denture - Upper, Denture - Lower, Glasses and Hearing Aid - Bilateral Review of Systems Constitutional: + fever and + fatigue Eyes: no blind spots and no diplopia Ear, Nose, Mouth, Throat: no ear pain and no hearing loss Respiratory: + cough and + dyspnea Cardiovascular: no chest pain and no palpitations Gastrointestinal: + nausea; no abdominal pain and no vomit ing Genitourinary: no dysuria Musculoskeletal: no neck pain, no myalgia and no muscle weakness Integumentary: no rash and no lesions Neurologic: as per Subjective / HPI and + headache(s); no localized weakness, no loss of sensation, no lack of coordination, no tremor(s), no abnormal moveme nts, no seizure-like activity, no syncope, no abnormal speech, no confusion and no memory loss Psychiatric: no depression and no anxiety Hematologic / Lymphatic: no easy bleeding and no easy bruising Exam (Neuro) Constitutional: well developed and well nourished; no acute distress Eyes: normal visual hutchins by confrontation, PERRL, normal accommodation and EOM intact bilaterally Neurologic: Oriented to:: Person, Place and Time Memory: Short Term Intact and Remote Intact Attention: Span Intact and Concentration Intact Language: Naming Objects and Repeating Phrases Speech Fluency: negative Dysarthria Speech Aphasia: negative Aphasia Fund of Knowledge: Current Events, Past History and Vocabulary Cranial Nerves: Normal II (Visual hutchins full to confrontation, visual acuity normal), III, IV, (Pupils equal round reactive to light and accommodation, eye movements normal), V (Facial sensation intact), VII (There is no facial droop or weakness), VIII (Hearing intact), IX, X (Palate elevates to midline), XI (Shoulder shrug intact) and XII (Tongue protrudes to midline) Motor Strength: Normal Lower Extremities and Normal Upper Extremities; negative Pronator Drift Motor Tone: Normal Lower Extremities and Normal Upper Extremities Muscle Bulk/Involuntary Movements: No Involuntary Movements; negative Muscle Atrophy Sensation: Light Touch Intact, Pain/Temperature Intact, Vibration Intact and Proprioception Intact Coordination: Normal; negative Limited Balance, Dysdiadochokinesia, Finger-Nose Abnormal or Heel-Kwan Abnormal Deep Tendon Reflexes: Rt Triceps: 2+, Lt Triceps: 2+, Rt Biceps: 2+, Lt Biceps: 2+, Rt Brachioradialis: 2+, Lt Brachioradialis: 2+, Rt Patellar: 2+, Lt Patellar: 2+, Rt Ankle: 2+ and Lt Ankle: 2+ Special Tests: negative Babinski Present Details: No nuchal rigidity on examination Results & Data Vital Signs (Past 12 Hours) Vital Signs Temp Pulse Pulse Resp BP Pulse Ox O2 Del Method 12/17/23 10:31 36.8 C 83 24 150/84 H 91 Oxymask 12/17/23 09:15 Oxymask 12/17/23 09:14 78 20 147/80 H 94 Oxymask 12/17/23 08:30 Oxymask 12/17/23 08:00 87 28 H 158/91 H 90 Oxymask 12/17/23 07:44 84 27 H 90 Oxymask 12/17/23 07:00 36.6 C 94 H 30 H 144/81 H 90 Oxymask 12/17/23 07:00 97 H 12/17/23 01:57 67 24 118/65 96 Oxymask 12/17/23 00:14 Oxymask O2 Flow Rate 12/17/23 10:31 10 12/17/23 09:15 12 12/17/23 09:14 12 12/17/23 08:30 12/17/23 08:00 12 12/17/23 07:44 12 12/17/23 07:00 10 12/17/23 07:00 12/17/23 01:57 7 12/17/23 00:14 9 Laboratory Results WBC 2.68, hemoglobin 12.9, hematocrit 37.9, MCV 87.9, platelet count 171, sodium 134, potassium 4.2, BUN 15, creatinine 1.05, glucose 220, calcium 7.5, magnesium 1.9, AST 36, ALT 28, CRP 15.49, SARS COVID [address] Findings CT of the head and CT venogram of the brain are as described in the HPI, I independently reviewed these images. An echocardiogram completed today reveals a normal ejection fraction, mild concentric LVH, grade 1 diastolic dysfunction, no regional wall motion abnormalities, mild mitral regurgitation. An electrocardiogram reveals a sinus rhythm with premature supraventricular complexes, 68 bpm. Coding Level of Care Code 89895 INT INP/OBS CARE 3/75MIN Diagnoses Headache R51.9 COVID-19 U07.1 Bilateral pneumonia J18.9 Time Spent (min) 90 Comment Total time includes patient contact, chart review, counseling, note preparation
[2023-12-17] MEDS: DIVALPROEX DELAY RELEASE 250 MG TABEC PO SCH (12:51)
--- NOTE | 2023-12-17 12:55 | Pulmonary Consultation ---
Date of Consultation December 17, 2023 Assessment & Plan (1) Pneumonia due to COVID-19 virus: Patient clearly has COVID-19 viral pneumonia based on his history and CT chest imaging. He is technically out of the window for remdesivir, but I would like to initiate this therapy anyway as I suspect he still has viable circulating viral PCR in his bloodstream and lung tissue. Will need to consider the addition of baricitinib or tocilizumab if his CRP continues to be elevated despite the use of remdesivir and dexamethasone. Please recheck a CRP tomorrow. Continue to wean oxygen as able. Patient has not been using his flutter valve. I encouraged him to be more compliant with his flutter valve. I will also order an incentive spirometer. We also discussed proning at length. He attempted proning with me present, but was intolerant due to his severe headache which is being managed by the hospitalist service and neurology. I did recommend the use of Imitrex potentially. He will consider proning in the near future if his headache is better controlled. (2) Acute hypoxemic respiratory failure: Continue to wean oxygen to maintain saturations of 92 to 95%. He has high risk for further decompensation and potentially needing noninvasive support and eventually mechanical support given the trajectory of his COVID-19 infection. Will continue to monitor the patient closely. (3) Headache: Patient followed by neurology and they are adding Depakote. Consider Imitrex as well. He did have a venogram of his brain to evaluate for clot burden and fortunately this was negative. CT head was also negative for acute bleed or large territorial stroke. Headache chronicity pattern: acute headache Headache type: unspecified Intractability: intractable Qualified Code(s): R51.9 - Headache, unspecified Plan Thank you for the consult. Pulmonary will continue to follow along with you. History of Present Illness Reason for Consultation: COVID viral pneumonia with type toxemic respiratory failure Attending Physician: Telma Covington MD History of Present Illness Patient is largely Hungarian and [place] Citizen speaking. I was able to speak to him in [place] Citizen and also uses daughter as a partial bottom sander to receive collateral information. Patient consented to his daughter being present in the room. Patient does not report a history of prior granulomatous disease although unclear the extent of disease burden in the treatment regimen. He follows with pulmonology through [facility] for cough variant asthma according to the patient's daughter. His symptoms are relatively mild at baseline. About 8 days ago he developed significant shortness of breath with cough that causes rib pain. Cough is occasionally productive of sputum, but mostly dry. He denies any hemoptysis. He was diagnosed with COVID-19 this admission and started on dexamethasone. He had a CT chest which revealed patchy groundglass opacities consistent with viral pneumonia. He is short of breath with minimal exertion. He is intolerant of laying in a prone position due to his severe headache. Neur ology is consulted regarding his headache. I discussed that this with the hospitalist and considered the addition of ivermectin. Neurology is recommending the addition of Depakote as well. Patient is required 10 L of oxygen to maintain saturations in the low 90s. His procalcitonin this admission has been negative. He is currently on Unasyn and Rocephin. His procalcitonin was negative and his blood cultures are negative to date. Patient notes that he was a heavy smoker in his youth, but cannot elaborate how much he smoked. He notes that he quit smoking over 30 years ago. 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 He has lived in [place] for the past 23 years. Allergies Allergy/AdvReac Type Severity Reaction Status Date / Time No Known Allergies Allergy Verified 02/21/21 12:03 Home Medications Medication Instructions Recorded Confirmed Type glipizide 5 mg tablet, extended 5 mg PO DAILY 11/22/20 12/16/23 History release 24 hr pantoprazole 40 mg tablet,delayed 40 mg PO DAILY 11/22/20 12/16/23 History release albuterol sulfate 90 mcg/actuation 2 inh inhalation Q6H PRN Shortness 02/21/21 12/16/23 History aerosol inhaler (Ventolin HFA) Of Breath Or Wheezing atorvastatin 80 mg tablet 80 mg PO HS 12/14/23 12/16/23 History linagliptin 5 mg tablet (Tradjenta) 5 mg PO DAILY 12/14/23 12/16/23 History losartan 25 mg tablet 25 mg PO DAILY 12/14/23 12/16/23 History mometasone 220 mcg/actuation(120 0 inh inhalation UD 12/14/23 12/16/23 History doses)breath activated powder inhaler (Asmanex [facility]) benzonatate 200 mg capsule 200 mg PO BID PRN Cough 12/16/23 12/16/23 History ondansetron HCl 4 mg tablet 4 mg PO Q8H PRN n/v 12/16/23 12/16/23 History oxycodone 5 mg tablet 5 mg PO Q6H PRN Pain 12/16/23 12/16/23 History prednisone 20 mg tablet 20 mg PO UD 12/16/23 12/16/23 History Patient History Medical History (Updated 12/17/23 @ 12:57 by Jaron Mcgill MD) Left ear hearing loss Bilateral tinnitus Vertigo Surgical History (Updated 12/16/23 @ 12:50 by Molly Machuca PA-C) History of esophagogastroduodenoscopy (EGD) History of colonoscopy Status post mastoidectomy Family History (Updated 12/16/23 @ 12:51 by Molly Machuca PA-C) Mother Diabetes Social History Smoking Status: Former smoker Hx Alcohol Use: No Hx Substance Use: No Preferred Language: [place] Citizen Communication Ability: Effective Communication Tools: IPad Inlayer Silver Required: Yes Beliefs That Will Affect Care: Lutheran Current Living Situation: Alone Feels Safe at Home: Yes Assistive Devices: Cane, Denture - Upper, Denture - Lower, Glasses and Hearing Aid - Bilateral Review of Systems Review of Systems: All systems reviewed & are unremarkable except as noted in HPI & below Physical Exam Physical Exam: Constitutional: Patient appears to be of their stated age. Patient is in no apparent distress. Patient is well-developed. Eyes: Pupils are equal round and reactive to light. Conjunctivae are normal. Anicteric sclera. Ears nose, mouth and throat: Mallampati class 2. Normal posterior oropharynx. Uvula is midline. Neck: Trachea is midline. Visual inspection is normal. Respiratory: Mild tachypnea. Crackles noted in the lower lobes bilaterally. Cardiovascular: Regular rate and rhythm. No murmurs. No edema. Gastrointestinal: Normal bowel sounds, soft, nontender and nondistended. No hepatosplenomegaly noted. Musculoskeletal: No cyanosis. Patient is able to move all extremities. Strength is 5 out of 5 in the upper and lower extremities. Skin: No rashes, warm dry and intact. Neurologic: No obvious focal neurological deficits seen. Psychiatric: Alert and oriented x3 with a euthymic affect. Results & Data Results & Data Vital Signs (Past 12 Hours) Vital Signs Temp Pulse Pulse Resp BP Pulse Ox O2 Del Method 12/17/23 10:31 36.8 C 83 24 150/84 H 91 Oxymask 12/17/23 09:15 Oxymask 12/17/23 09:14 78 20 147/80 H 94 Oxymask 12/17/23 08:30 Oxymask 12/17/23 08:00 87 28 H 158/91 H 90 Oxymask 12/17/23 07:44 84 27 H 90 Oxymask 12/17/23 07:00 36.6 C 94 H 30 H 144/81 H 90 Oxymask 12/17/23 07:00 97 H 12/17/23 01:57 67 24 118/65 96 Oxymask O2 Flow Rate 12/17/23 10:31 10 12/17/23 09:15 12 12/17/23 09:14 12 12/17/23 08:30 12/17/23 08:00 12 12/17/23 07:44 12 12/17/23 07:00 10 12/17/23 07:00 12/17/23 01:57 7 PG Care Time/CCT Total # of Minutes Spent Total Time Spent with Patient: Total time spent is greater than 50% in coordination of care (as documented) at patient's floor/unit and/or counseling patient: Coding Level of Care Code 51942 INT INP/OBS CARE 3/75MIN Diagnoses Pneumonia due to COVID-19 virus U07.1; J12.82 Acute hypoxemic respiratory failure J96.01 Headache R51.9 Headache chronicity pattern: acute headache Headache type: unspecified Intractability: intractable
[2023-12-17] MEDS: ACETAMINOPHEN 500 MG TAB PO SCH (13:21)
[2023-12-17] MEDS: CALCIUM CARBONATE 500 MG CHEWABLE TAB PO STA (13:23)
[2023-12-17] MEDS: SUMAtriptan succinate 6 MG/0.5 ML VIAL SQ STA (13:24)
[2023-12-17] MEDS: REMDESIVIR 200 MG in SODIUM CHLORIDE 0.9% 210 ML IV STA (13:47)
[2023-12-17] MEDS: AMPICILLIN/SULBACTAM SOD 3,000 MG/100 ML BAG IV SCH (13:51)
--- NOTE | 2023-12-17 16:36 | Electrocardiogram Report ---
Test Reason : Blood Pressure : */* mmHG Vent. Rate : 68 BPM Atrial Rate : 68 BPM P-R Int : 170 ms QRS Dur : 82 ms QT Int : 416 ms P-R-T Axes : 36 -14 17 degrees QTcB Int : 442 ms Sinus rhythm with Premature supraventricular complexes Minimal voltage criteria for LVH, may be normal variant ( R in aVL ) Borderline ECG When compared with ECG of 09-Dec-2023 13:49, Premature supraventricular complexes are now Present Questionable change in QRS axis Confirmed by Sophia Hood (Dominga) on 12/17/2023 4:36:26 PM Referred By: REFERRED SELF Confirmed By: Sophia Hood
[2023-12-17] MEDS: PROMETHAZINE 6.25 MG/50.25 ML BAG IV STA (16:39)
[2023-12-17] MEDS: KETOROLAC TROMETHAMINE 15 MG/ML VIAL IV ONE (16:41)
[2023-12-17] MEDS: diphenhydrAMINE 50 MG/ML VIAL IV STA (16:42)
[2023-12-17] MEDS ORDERED: Nursing to Pharmacy Communication SCH (17:15)
--- NOTE | 2023-12-17 17:49 | CT Scan Report ---
CT SCAN OF THE CHEST WITHOUT IV CONTRAST CLINICAL HISTORY: Respiratory failure. Covid. COMPARISON STUDY: Chest x-ray dated 12/16/2023. Chest CT dated 02/21/2021. Abdominal CT dated 4. TECHNIQUE: CT scan of the thorax was performed from the thoracic inlet to the upper abdomen. Images are reviewed in the axial, sagittal, and coronal planes. IV contrast was not administered for this ex amination as per the referring clinician. A dose lowering technique was utilized adhering to the [facility] yuri ANGEL. CT DOSE: 377.42 mGy.cm FINDINGS: Thyroid: Mildly enlarged and heterogeneous. A 2.1 cm nodule which contains tiny calcifications. Thoracic aorta: There is mild atherosclerotic calcification of the thoracic aorta, which is normal in caliber and demonstrates standard 3-vessel arch anatomy. Heart: The heart is mildly enlarged and without pericardial effusion. The coronary arteries are dense ly calcified. Lungs and pleural spaces: Evaluation of the lung parenchyma is significantly degraded by motion artif act. There is extensive multifocal groundglass consolidation seen throughout both lungs with a subple ural and lower lobe predominance. There is mild bronchiectasis in the lower lobes with foci of alix ectural distortion. The trachea and central airways are clear. There are trace pleural effusions. The re are scattered calcified granulomas. Mediastinum: There are calcified mediastinal lymph nodes. A mildly enlarged subcarinal node measures 14 mm in short axis. Anai: There are calcified right hilar nodes. Note that the anai are not well assessed without IV cont rast. Axillae: There is no axillary lymphadenopathy. Upper abdomen: There is a small to moderate hiatal hernia. Partially visualized upper abdominal visce ra is otherwise within normal limits. Skeletal structures: The skeletal structures are osteopenic. Degenerative change is noted in the shou lders and spine. No lytic or blastic bony lesions are seen. IMPRESSION: 1. Again seen is extensive/diffuse multifocal groundglass consolidation as detailed above. This would be consistent with the reported history of a viral pneumonia and has not appreciably changed from 's abdominal CT. Clinical correlation will be required and radiographic follow-up to [facility] is recommended. 2. Mild cardiomegaly and trace pleural effusions. 3. There is an indeterminate 2.1 cm left lobe thyroid nodule which contains tiny calcifications. A no nemergent/outpatient thyroid ultrasound is recommended in follow-up. 4. Coronary artery atherosclerosis. 5. Additional findings as above. ACT 112: Negative or not required by law. Electronically signed by: Ermias Pena M.D. 12/17/2023 5:46 PM
[2023-12-17] MEDS: SODIUM CHLOR 7% 4 ML NEB NEB SCH (19:45)
[2023-12-17] MEDS: SUMAtriptan succinate 6 MG/0.5 ML VIAL SQ ONE (20:09)
[2023-12-17] MEDS ORDERED: SUMAtriptan succinate 6 MG/0.5 ML VIAL SQ ONE (20:30)
--- NOTE | 2023-12-18 07:33 | Pulmonology Progress Note ---
Date of Service December 18, 2023 Assessment & Plan (1) Pneumonia due to COVID-19 virus: (2) Acute hypoxemic respiratory failure: (3) Headache: Headache chronicity pattern: acute headache Headache type: u nspecified Intractability: intractable Qualified Code(s): R51.9 - Headache, unspecified Plan CT chest 12/17/2023 personally reviewed: Patchy groundglass opacities appreciated bilaterally especially on the periphery More on the right side Motion degraded study Minimal subcarinal lymphadenopathy --Acute hypoxic respiratory failure Secondary to multilobar COVID-19 pneumonia COVID-19 PCR positive, 12/09/2023 CRP 15.49 --> 4.06 Procalcitonin 0.10 Continue with O2 supplementation to keep oxygen saturation between 90-92%. Awake proning will be helpful Continue with incentive spirometry Continue with flutter valve. Recommend patient to be kept euvolemic to negative balance Plan: CRP is trending down Would recommend to continue with dexamethasone 10 mg. No indication to give tocilizumab or baricitinib. Patient in the morning was likely very upset and asking to stop all the medication. Dr. Covington spoke with the family and explained everything to them I think that helped. I also spoke with the patient and his [place] language in front of her daughter which also seem to come and down he is agreeable to continue with the treatment. Recommend PT/OT I do recommend repeat CAT scan of the chest to be done in 8 weeks Case was discussed with RN as well as primary team Please note the above document was generated using voice recognition software. It may contain grammatical, syntax or spelling errors.Any formal questions or concerns about the content, text or information contained within the body of this dictation should be directly addressed to the provider for clarification. Admission and Anticipated Discharge Date Admission Date: December 16, 2023 Subjective Patient seen and examined at bedside, no acute distress, notable symptoms overnight Case was discussed with outgoing endoscopy technician Patient's daughter was in the room at the time of examination Patient says that he is feeling better compared to when he came to the hospital He was on 4 L nasal cannula, saturating 90% Does complain of cough with clear phlegm. Occasional hemoptysis which is seldom. Denied any headache right now. No nausea or vomiting No chest pain No abdominal pain He denied any depressive thoughts or any delusions Review of Systems 2 Review of Systems: All systems reviewed & are unremarkable except as noted in Subjective Physical Exam 2 Physical Exam: Constitutional: No acute distress HEENT: EOMI, PERRLA Respiratory system: Decreased air entry bilaterally, no wheeze, no rhonchi, positive crackles bilaterally CVS: S1-S2 positive, no murmurs or gallops Abdomen: Soft, nontender, nondistended, positive bowel sounds x4 Extremities: +2 pulses bilaterally radialis/ dorsalis pedis, no cyanosis, no edema Neuro: Awake alert oriented x3 Psych: Normal mood and affect G/U: No [place] Skin: no rashes, warm and dry Lymphatic: no cervical or axillary lymphadenopathy Results & Data Results & Data Vital Signs (Past 12 Hours) Vital Signs Temp Pulse Pulse Resp BP Pulse Ox O2 Del Method 12/18/23 07:12 79 12/18/23 04:47 36.7 C 84 22 158/75 H 91 Oxymask 12/18/23 01:26 36.5 C 80 22 151/78 H 94 Oxymask 12/17/23 21:54 68 12/17/23 20:00 Oxymask 12/17/23 20:00 12/17/23 19:57 36.7 C 76 18 159/80 H 95 Oxymask 12/17/23 19:46 90 Oxymask O2 Del Method O2 Flow Rate O2 Flow Rate 12/18/23 07:12 12/18/23 04:47 10 12/18/23 01:26 11 12/17/23 21:54 12/17/23 20:00 11 12/17/23 20:00 Oxymask 11 12/17/23 19:57 11 12/17/23 19:46 10 Laboratory Results 12/17/23 03:33 12/17/23 03:33 PG Care Time/CCT Total # of Minutes Spent Total Time Spent with Patient: Total time spent is greater than 50% in coordination of care (as documented) at patient's floor/unit and/or counseling patient: Coding Level of Care Code 15697 SUB INP/OBS CARE 3/50MIN Diagnoses Pneumonia due to COVID-19 virus U07.1; J12.82 Acute hypoxemic respiratory failure J96.01 Headache R51.9 Headache chronicity pattern: acute headache Headache type: unspecified Intractability: intractable
[2023-12-18] MEDS: LANTUS PER UNIT CHARGE SQ SCH ×2 (08:32→20:21)
[2023-12-18 08:48] LABS: Hematocrit (blood only) 38.8 % (42.0-52.0); Hemoglobin 13.7 g/dl (14.0-18.0); Mean Corpuscular Hemoglobin 30.3 pg (25.0-34.0); Mean Corpuscular Hgb Conc 35.3 g/dL (32.0-36.0); Mean Corpuscular Volume 85.8 fL (80.0-100.0); Mean Platelet Volume 9.6 fL (9.4-12.4); Platelet Count 225 K/uL (130-400); RDW Coefficient of Variation 12.5 % (11.5-14.5); RDW Standard Deviation 39.3 fL (36.4-46.3); Red Blood Count 4.52 M/uL (4.70-6.10); White Blood Count 7.83 K/ul (4.8-10.8)
[2023-12-18 09:06] LABS: Albumin Level 3.2 gm/dl (3.4-5.0); BUN Creatinine Ratio 22.4 (10-20); Bilirubin Direct 0.1 mg/dl (0-0.2); Bilirubin,Total 0.4 mg/dl (0.2-1.0); Calcium 7.8 mg/dl (8.6-10.3); Creatinine Clr Calc Pharmacy 55.8 ml/min; Est GFR (African American) 67.7 ml/min; Est GFR (Non-African American) 58.4 ml/min; Magnesium 2.4 mg/dl (1.7-2.4); Phosphorus 3.4 mg/dl (2.5-4.9); Potassium 4.2 mmol/L (3.5-5.1); Total Protein 6.2 gm/dl (6.0-8.3)
[2023-12-18 09:22] LABS: Estimated Average Glucose 226 mg/dl; Hemoglobin A1C 9.5 % (4.5-5.6)
[2023-12-18] MEDS: PROCHLORPERAZINE 10 MG in SYRINGE 8 ML IV ONE (09:47)
[2023-12-18] MEDS: diphenhydrAMINE 50 MG/ML VIAL IV STA (09:47)
[2023-12-18] MEDS: KETOROLAC 30 MG/ML VIAL IV ONE (09:47)
[2023-12-18] MEDS: VALPROATE SOD 500 MG in DEXTROSE 5% 50 ML IV ONE (10:48)
[2023-12-18] MEDS: REMDESIVIR 100 MG in SODIUM CHLORIDE 0.9% 230 ML IV SCH (11:55)
[2023-12-18] MEDS ORDERED: REMDESIVIR 100 MG in SODIUM CHLORIDE 0.9% 230 ML IV SCH (12:00)
[2023-12-18] MEDS: INSULIN ASPART PER UNIT CHARGE SC STA (13:31)
--- NOTE | 2023-12-18 14:15 | Hospitalist Progress Note ---
Date of Service December 18, 2023 Assessment & Plan (1) Pneumonia: (2) COVID-19: (3) Acute respiratory failure with hypoxia: (4) Headache: (5) Acute hyponatremia: (6) HTN (hypertension): (7) Diabetes mellitus, type II: (8) CKD (chronic kidney disease), stage III: (9) History of chronic cough: (10) History of granulomatous disease: Plan: Ms. Peoples is a 68 year old male with PMH HTN, dyslipidemia, DM II, CKD III, chronic cough, granulomatous disease, history of left mastoidectomy, GERD, history MELENDEZ in remote past presented to ER with c/o MELENDEZ x 1 week and shortness of breath. Patient found to be acutely hypoxic and COVID positive. LP pursued in ED, however, failed. Patient empirically treated for meningitis. Patient presented to ED on 12/09/23 12/09/23 +COVID, CXR without infiltrate and Rx Medrol dose pack and pt decided against Paxlovid Recurrent ER visit on 12/14/23 for worsening MELENDEZ, photophobia with CT head negative for acute intracranial abnormality Patient with concerning findings on imaging therefore pulm consulted. Patient with stable exam findings and no further increased O2 requirements 65 minutes spent with patient and family to discuss GoC--patient DNI/DNR which is appropriate, however, discussed that patient is not imminent and there are no signs that this would further escalate with continued medical management. Patient clear that he will give it "one more day" until he would refuse all therapies. Six family members in bedroom, majority also speaking Ethiopian , translation facilitated by daughters given refusal of formal home care manager rn services. Responses appropriate to questions asked. Will continue to encourage management. #Acute hypoxic respiratory failure, multifactorial, c/f ARDS? #COVID pneumonia, ?superimposed bacterial pneumonia COVID +, diffuse multifocal infiltrates ?pulm edema, Low suspicion for HFpEF contributing--diastolic dysfunction noted, BNP WNL, low H2FPEF score (28.2%), no response to lasi No leukocytosis, CRP: 15, procalcitonin: 0.10 Lactate: 3.4-->1.1 Bio[employer] respiratory panel +COVID-[address] abd/pelvis: No acute infectious or inflammatory findings are identified in the abdomen or pelvis. Multifocal airspace consolidation is seen at both lung bases with foci of architectural distortion. Cardiomegaly. Sigmoid diverticulosis without CT evidence of acute diverticulitis. CXR: acute onset bilateral infiltrates ABG 7.48/30/62/22 on 10 L BNP 84, some diastolic dysfx on ECHO, no response from resp status to 1x 20mg Lasix despite good UOP Continue empiric abx with Rocephin, vancomycin, ampicillin, dexamethasone Continue Airborne isolation Supplemental oxygen, wean O2 >92% CPAP if O2 requires increase Nebs as needed Incentive spirometry, flutter valve Decadron q 6h (mostly for empiric meningitis coverage, however hopefully will aid in resp status) repeat CBC, BMP in am Hypertonic nebs--patient refused Continue mucolytic, and pulm toilet #Acute headache #History of Migraine ER physician attempted LP however was unsuccessful CT venogram: There is no hemorrhage, mass effect, or evidence of acute territorial ischemia by CT criteria. Normal CT venogram of the brain. Patient reports marginal improvement, but worsened 2/2 coughing MRI brain ordered, awaiting radiology approval given hx of surgical intervention (mastoidectomy 2016) Neurology consulted, reviwed recs: -Will plan for IR LP to conclusively r/o meningitis -Will add 250mg depakote BID for 2 days to continue 2-3 weeks (reeval in 2 days if dose needs increased to 500 BID) -Plan for steroid taper contingent on above resp recovery -s/p imitrex and IV depakote -Some response noted still with +photophobia #Uncontrolled diabetes type II Elevated blood sugars noted while on decadron -refused insulin, now agreeable again Continue to encourage insulin compliance while admitted Will plan for DM educator contingent on course #Cough Variant Asthma #Granulomatous disease #s/p left mastoidectomy 2016 #[employer] Integration Engineer's lung CT chestfrom 02/2021 report only shows calcified mediastinal LNs, biapical scarring, right lung granuloma 1 cm. Mild haziness at bases bilaterally. No focal consolidations. s/p allergy panel IgE negative, follows Dr. Valle 2/2 trace granulomatous disease PFT 2021 normal nebs prn Continue with Benzonatate 200 mg Q 12 hx of [place] allergy panel, IgE Negative continue Protonix for chronic cough #Acute Hyponatremia *improving Na: 136 corrected for hyperglycemia s/p IVF Encourage PO Trend BMP qd #HTN Continue losartan #CKDIII Cr: 1.0. Baseline Cr: 1.2-1.4 Monitor renal functions, avoid nephrotoxic agents when possible DVT Prophylaxis Lovenox SQ PCU Full Code Follows with Dr Dawson for routine care Admission and Anticipated Discharge Date Admission Date: December 16, 2023 Subjective Oxygen requirement stable at 10L oxymask Afebrile Patient reported to family that he doesn't want all the therapy and he feels the end is coming Discussed intensively with patient and he doesn't feel like he "will make it through this" per daughters' translation. Two daughters and son (mohawk speaking) report that he does not "wish to fight" anymore. continued to clarify that only the lungs are impacted and that there is no perceived imminence medically--reassured that heart, kidneys, labs overall look stable and he seems to be stable from a respiratory standpoint He then states he will wait one more day to "feel better" reassured him this may be a slow recovery but does not mean he will "" from this Family translated and verbalized understanding. Patient did states he does not want compressions and he does not want intubation. Patient reports persistent headache Physical Exam Constitutional: WD/WN, vitals as above tired appearing gentleman, no acute distress Respiratory: diminished bilaterally, dry cough 10L oxymask no distress Results & Data Results & Data Vital Signs (Past 12 Hours) Vital Signs Temp Pulse Pulse Resp BP Pulse Ox O2 Del Method 12/18/23 11:59 36.8 C 78 20 129/73 92 Oxymask 12/18/23 08:27 Oxymask 12/18/23 08:00 36.6 C 77 20 169/89 H 92 Oxymask 12/18/23 07:12 79 12/18/23 04:47 36.7 C 84 22 158/75 H 91 Oxymask O2 Flow Rate 12/18/23 11:59 10 12/18/23 08:27 10 12/18/23 08:00 10 12/18/23 07:12 12/18/23 04:47 10 (4) Headache Headache chronicity pattern: acute headache Headache type: unspecified Intractability: intractable Qualified Code(s): R51.9 - Headache, unspecified
--- NOTE | 2023-12-18 14:56 | Pharmacy Report ---
Pharmacy PK ABX Note - Date of Service December 18, 2023 - Assessment and Plan Assessment 12/17 * Day #3 of antimicrobial therapy: Vancomycin + Ceftriaxone + Unasyn (also on Remdesivir). Dr Covington would like to continue for 7 days at this time for COVID pneumonia with possible superimposed bacterial pneumonia. * Labs/Vitals: Afebrile. No leukocytosis. SCr with slight bump up today, 1.25. * Micro: Blood culture no growth x 48 hours Patient has been COVID + since 12/09/23. LP attempted in ED but failed. Ordered again today but canceled. 12/16 68 year old M receiving Vancomycin, Ceftriaxone and Ampicillin for treatment of empiric meningitis. * Day #1 of antimicrobial therapy. * Labs/Vitals: Afebrile. No leukocytosis. Lactate elevated but resolved with fluids. Procal 0.10. SCr at 1.01, unknown baseline. * Micro: Blood culture pending. Patient has been covid + since 12/09/23. LP attempted in ED but failed. Plan Vancomycin * Current regimen: 1000 mg IV every 12 hours * Random level obtained 12/18/23 resulted as 13.6 mcg/mL. This is predicted to achieve target AUC/HERNANDEZ of 400-600 mg/L.hr * Predicted AUC at steady state: 482 mg/L.hr * Continue Vancomycin 1000 mg IV every 12 hours * Will repeat level in the next 48-72 hours if therapy is continued and/or change in patient clinical status Ceftriaxone * 2000 mg IV every 12 hours Unasyn * 3g IV every 6 hours Pharmacy will continue to follow and will adjust dose/frequency as necessary. Thank you. Pharmacy has transitioned to AUC monitoring for vancomycin. AUC/HERNANDEZ is the preferred PK/PD target and is associated with decreased risk of nephrotoxicity compared to traditional trough targets.
[2023-12-18] MEDS: BUTALBITAL/ACETAMIN/CAFFEINE TAB PO STA (18:27)
[2023-12-18] MEDS: METOCLOPRAMIDE HCL INJ 5 MG/ML 2 ML VIAL IV STA (18:27)
[2023-12-18] MEDS: ACETAMINOPHEN 325 MG TAB PO PRN (20:20)
[2023-12-18] MEDS ORDERED: LANTUS PER UNIT CHARGE SQ SCH (21:00)
[2023-12-19 03:06] LABS: Base Excess VBG 0.9 mEq/L; HCO3 VBG 24 mmol/L; Oxygen Saturation VBG 61.4 %; PCO2 VBG 33 mmHg (38-50); PO2 VBG 33 mmHg; pH VBG 7.47 (7.36-7.41)
[2023-12-19 03:23] LABS: Hemoglobin 13.1 g/dl (14.0-18.0); Mean Corpuscular Hemoglobin 30.2 pg (25.0-34.0); Mean Corpuscular Hgb Conc 34.5 g/dL (32.0-36.0); Mean Corpuscular Volume 87.6 fL (80.0-100.0); Mean Platelet Volume 9.5 fL (9.4-12.4); Platelet Count 216 K/uL (130-400); RDW Coefficient of Variation 12.9 % (11.5-14.5); RDW Standard Deviation 41.8 fL (36.4-46.3); Red Blood Count 4.34 M/uL (4.70-6.10); White Blood Count 7.89 K/ul (4.8-10.8)
[2023-12-19 03:28] LABS: Albumin Level 3.2 gm/dl (3.4-5.0); BUN Creatinine Ratio 26.5 (10-20); Bilirubin Direct 0.1 mg/dl (0-0.2); Bilirubin,Total 0.5 mg/dl (0.2-1.0); Calcium 7.7 mg/dl (8.6-10.3); Creatinine Clr Calc Pharmacy 59.6 ml/min; Est GFR (African American) 73.3 ml/min; Est GFR (Non-African American) 63.2 ml/min; Magnesium 2.5 mg/dl (1.7-2.4); Phosphorus 3.2 mg/dl (2.5-4.9); Potassium 4.2 mmol/L (3.5-5.1); Total Protein 6.3 gm/dl (6.0-8.3)
[2023-12-19] MEDS: FUROSEMIDE INJ 20 MG/2 ML VIAL IV ONE (03:56)
--- NOTE | 2023-12-19 07:25 | XRay Report ---
XR chest 1V portable HISTORY: 68 years-old Male low o2 acute hypoxia COMPARISON: Chest CT 12/17/2023, chest radiograph 12/16/2023. TECHNIQUE: AP view of the chest FINDINGS: Cardiac silhouette is enlarged. Bilateral mixed interstitial and alveolar opacities, most pronounced in the lung bases and right upper lung. Calcified mediastinal and hilar lymph nodes. No pneumothorax. Trace pleural effusions. The bones appear grossly intact. IMPRESSION: 1. Unchanged appearance of the multifocal pneumonia. 2. Trace pleural effusions. 3. Prior granulomatous disease. ACT 112: Negative or not required by law. The above report was generated using voice recognition software. It may contain grammatical, syntax o r spelling errors. Electronically signed by: Bobby Uriarte M.D. 12/19/2023 7:24 AM
--- NOTE | 2023-12-19 07:43 | Pulmonology Progress Note ---
Date of Service December 19, 2023 Assessment & Plan (1) Pneumonia due to COVID-19 virus: (2) Acute hypoxemic respiratory failure: (3) Headache: Headache chronicity pattern: acute headache Headache type: u nspecified Intractability: intractable Qualified Code(s): R51.9 - Headache, unspecified Plan CT chest 12/17/2023 personally reviewed: Patchy groundglass opacities appreciated bilaterally especially on the periphery More on the right side Motion degraded study Minimal subcarinal lymphadenopathy --Acute hypoxic respiratory failure Secondary to multilobar COVID-19 pneumonia COVID-19 PCR positive, 12/09/2023 CRP 15.49 --> 4.06 Procalcitonin 0.10 Continue with O2 supplementation to keep oxygen saturation between 90-92%. Awake proning will be helpful Continue with incentive spirometry Continue with flutter valve. Recommend patient to be kept euvolemic to negative balance Plan: In/out: +4.5 L since coming to the hospital I think it is reasonable to diurese the patient a little. Would recommend to continue with dexamethasone 10 mg for total of 10 days. No indication to give tocilizumab or baricitinib. Recommend repeat CAT scan of the chest to be done in 8-12 weeks Patient probably has sleep apnea, also has significant groundglass opacities on the periphery, shallow breathing when someone's sleeping will increase atelectasis thus there will be increase the degree of hypoxia. Sleeping prone will be helpful Will give a trial of CPAP 6 cm H2O instead of high flow at night if the patient is able to tolerate it. Case was discussed with RN and primary team Please note the above document was generated using voice recognition software. It may contain grammatical, syntax or spelling errors.Any formal questions or concerns about the content, text or information contained within the body of this dictation should be directly addressed to the provider for clarification. Admission and Anticipated Discharge Date Admission Date: December 16, 2023 Subjective No acute distress. Overnight patient did get hypoxic. Chest x-ray was done which did not show any significant change compared to before At the time of examination saturation was 92-93% on 6 L nasal cannula. Not any respiratory distress Review of Systems 2 Review of Systems: All systems reviewed & are unremarkable except as noted in Subjective Physical Exam 2 Physical Exam: Constitutional: No acute distress HEENT: EOMI, PERRLA Respiratory system: Decreased air entry bilaterally, no wheeze, no rhonchi, positive crackles bilaterally CVS: S1-S2 positive, no murmurs or gallops Abdomen: Soft, nontender, nondistended, positive bowel sounds x4 Extremities: +2 pulses bilaterally radialis/ dorsalis pedis, no cyanosis, no edema Neuro: Awake alert oriented x3 Psych: Normal mood and affect G/U: No Crespo Skin: no rashes, warm and dry Lymphatic: no cervical or axillary lymphadenopathy Results & Data Results & Data Vital Signs (Past 12 Hours) Vital Signs Temp Pulse Pulse Pulse Resp BP Pulse Ox 12/19/23 07:38 77 19 93 12/19/23 07:03 82 12/19/23 03:28 36.5 C 76 18 159/74 H 94 12/19/23 02:45 90 25 H 92 12/19/23 01:59 72 20 90 12/19/23 01:40 94 12/19/23 01:35 85 L 12/19/23 01:30 80 L 12/19/23 00:02 86 L 12/18/23 22:43 37 C 74 18 130/76 95 12/18/23 21:55 61 12/18/23 20:05 36.9 C 78 18 166/74 H 92 12/18/23 20:00 O2 Del Method O2 Flow Rate FiO2 12/19/23 07:38 High Flow Nasal Cannula 30 70 12/19/23 07:03 12/19/23 03:28 Nasal Cannula 12/19/23 02:45 High Flow Nasal Cannula 30 70 12/19/23 01:59 Oxymask 8 12/19/23 01:40 Non-rebreather 15 12/19/23 01:35 Oxymask 8 12/19/23 01:30 Nasal Cannula 6 12/19/23 00:02 Nasal Cannula 4 12/18/23 22:43 Nasal Cannula 12/18/23 21:55 12/18/23 20:05 Nasal Cannula 12/18/23 20:00 Nasal Cannula 4 Laboratory Results 12/19/23 02:41 12/19/23 02:41 PG Care Time/CCT Total # of Minutes Spent Total Time Spent with Patient: Total time spent is greater than 50% in coordination of care (as documented) at patient's floor/unit and/or counseling patient: Coding Level of Care Code 15165 SUB INP/OBS CARE MIN Diagnoses Pneumonia due to COVID-19 virus U07.1; J12.82 Acute hypoxemic respiratory failure J96.01 Headache R51.9 Headache chronicity pattern: acute headache Headache type: unspecified Intractability: intractable
[2023-12-19] MEDS: DIVALPROEX DELAY RELEASE 500 MG TAB PO SCH (07:53)
[2023-12-19] MEDS: BUTALBITAL/ACETAMIN/CAFFEINE TAB PO PRN (12:26)
--- NOTE | 2023-12-19 15:42 | Hospitalist Progress Note ---
Date of Service December 19, 2023 Assessment & Plan (1) Pneumonia: (2) COVID-19: (3) Acute respiratory failure with hypoxia: (4) Headache: (5) Acute hyponatremia: (6) HTN (hypertension): (7) Diabetes mellitus, type II: (8) CKD (chronic kidney disease), stage III: (9) History of chronic cough: (10) History of granulomatous disease: Plan: Ms. Peoples is a 68 year old male with PMH HTN, dyslipidemia, DM II, CKD III, chronic cough, granulomatous disease, history of left mastoidectomy, GERD, history MELENDEZ in remote past presented to ER with c/o MELENDEZ x 1 week and shortness of breath. Patient found to be acutely hypoxic and COVID positive. LP pursued in ED, however, failed. Patient empirically treated for meningitis. Patient presented to ED on 12/09/23 12/09/23 +COVID, CXR without infiltrate and Rx Medrol dose pack and pt decided against Paxlovid Recurrent ER visit on 12/14/23 for worsening MELENDEZ, photophobia with CT head negative for acute intracranial abnormality Patient with concerning findings on imaging therefore pulm consulted. Patient with stable exam findings and no further increased O2 requirements on 12/17, 65 min spent with patient and family to discuss GoC--patient DNI/DNR which is appropriate, however, discussed that patient is not imminent and there are no signs that this would further escalate with continued medical management. Patient clear that he will give it "one more day" until he would refuse all therapies. Six family members in bedroom, majority also speaking Kuwaiti , translation facilitated by daughters given refusal of formal surgical manager services. Responses appropriate to questions asked. On 12/18, patient in much better spirits overall with reports of marginal improvement. Wishes to continue care. Denies any other symptoms outside of SOB with exertional movements, as well as ongoing headache--however, Fioricet seems to have worked for pain control. Transitioned to HFNC rosa iso sleep apnea/atelectasis while sleeping--pulm encouraged trial of CPAP qhs #Acute hypoxic respiratory failure, multifactorial, c/f ARDS? #COVID pneumonia, ?superimposed bacterial pneumonia COVID +, diffuse multifocal infiltrates ?pulm edema, Low suspicion for HFpEF contributing--diastolic dysfunction noted, BNP WNL, low H2FPEF score (28.2%), no response to lasi No leukocytosis, CRP: 15, procalcitonin: 0.10 Lactate: 3.4-->1.1 Biofire respiratory panel +COVID-[address] abd/pelvis: No acute infectious or inflammatory findings are identified in the abdomen or pelvis. Multifocal airspace consolidation is seen at both lung bases with foci of architectural distortion. Cardiomegaly. Sigmoid d iverticulosis without CT evidence of acute diverticulitis. CXR: acute onset bilateral infiltrates L Continue empiric abx with CTX and Unasyn -Consider deescalation to PO when stable for dipo Continue Airborne isolation Supplemental oxygen, wean O2 >92% Incentive spirometry, flutter valve Decadron 10mg q 6h (mostly for empiric meningitis coverage, however hopefully will aid in resp status) repeat CBC, BMP in am Hypertonic nebs--patient refused Continue mucolytic, and pulm toilet Plan for CPAP overnight if patient can tolerate to prevent atelectasis Pleural effusions on CXR -Start IV lasix 20mg qd x 3 days Repeat BMP and replace lytes #Acute headache #History of Migraine ER physician attempted LP however was unsuccessful CT venogram: There is no hemorrhage, mass effect, or evidence of acute territorial ischemia by CT criteria. Normal CT venogram of the brain. Patient reports marginal improvement, but worsened 2/2 coughing MRI brain ordered, awaiting radiology approval given hx of surgical intervention (mastoidectomy 2017) Neurology consulted, reviwed recs: -cannot obtain lp 2/2 patient declines -500mg depakote BID for 2 weeks -Plan for steroid taper contingent on above resp recovery -s/p imitrex and IV depakote: most improvement with prn Fioricet Very low suspicion of meningitis as initially concerned: no WBC, no nuchal rigidity, headache same character as usual headaches, no improvement with abx however improved with Fioricet, therefore will discontinue vancomycin and consider step down in abx for ?superimposed pneumonia rather than MANAGEMENT CONSULTING infection Patient declines MRI or other imaging/procedures #Uncontrolled diabetes type II hold home glipizide and linagliptin Elevated blood sugars noted while on decadron Continue to encourage insulin compliance while admitted Will plan for DM educator contingent on course Increase lantus 9 U BID #Cough Variant Asthma #Granulomatous disease #s/p left mastoidectomy 2016 #Property Caretaker's lung CT chestfrom 02/2021 report only shows calcified mediastinal LNs, biapical scarring, right lung granuloma 1 cm. Mild haziness at bases bilaterally. No focal consolidations. s/p allergy panel IgE negative, follows Dr. Valle 2/2 trace granulomatous disease PFT 2021 normal nebs prn Continue with Benzonatate 200 mg Q 12 hx of [place] allergy panel, IgE Negative continue Protonix for chronic cough #Acute Hyponatremia *improving Na: 136 corrected for hyperglycemia s/p IVF Encourage PO Trend BMP qd #HTN Continue losartan #CKDIII Cr: 1.0. Baseline Cr: 1.2-1.4 Monitor renal functions, avoid nephrotoxic agents when possible DVT Prophylaxis Lovenox SQ PCU Full Code Follows with Dr Dawson for routine care Admission and Anticipated Discharge Date Admission Date: December 16, 2023 Subjective Initially on hi-flow overnight, however, no distress noted Patient does report feeling improved overall--notes headache improves with Fioricet better than other agents Patient wishes to continue treatments and is in better spirits than day prior discussion facilitated by daughter Patient does report poor dietary/diabetic meds compliance at home Physical Exam Constitutional: WD/WN, vitals as above Respiratory: diminished bilaterally, dry cough on exam Cardiovascular: RRR, no murmur, no edema Gastrointestinal (Abdomen): normal bowel sounds, soft, nontender, no hepatosplenomegaly Neurologic: PERRL, EOMI, accommodation nl, no face palsy, no dysarthria Results & Data Results & Data Vital Signs (Past 12 Hours) Vital Signs Temp Pulse Pulse Resp BP Pulse Ox O2 Del Method 12/19/23 14:48 75 12/19/23 11:30 36.6 C 82 22 161/69 H 96 High Flow Nasal Cannula 12/19/23 07:44 High Flow Nasal Cannula 12/19/23 07:41 36.7 C 74 21 168/71 H 93 High Flow Nasal Cannula 12/19/23 07:38 77 19 93 High Flow Nasal Cannula 12/19/23 07:03 82 12/19/23 03:28 36.5 C 76 18 159/74 H 94 Nasal Cannula O2 Flow Rate FiO2 12/19/23 14:48 12/19/23 11:30 30 70 12/19/23 07:44 30 70 12/19/23 07:41 30 70 12/19/23 07:38 30 70 12/19/23 07:03 12/19/23 03:28 Laboratory Results Short CBC 12/19/23 Range/Units 02:41 WBC 7.89 (4.8-10.8) K/ul Hgb 13.1 L (14.0-18.0) g/dl Hct 38.0 L (42.0-52.0) % Plt Count 216 (130-400) K/uL BMP 12/19/23 02:41 Sodium 136 Potassium 4.2 Chloride 102 Carbon Dioxide 24 BUN 31 H Creatinine 1.17 Glucose 217 H Calcium 7.7 L Liver Function 12/19/23 Range/Units 02:41 Total Bilirubin 0.5 (0.2-1.0) mg/dl Direct Bilirubin 0.1 (0-0.2) mg/dl AST 45 H (13-39) U/L ALT 28 (7-52) U/L Alkaline Phosphatase 33 L (34-104) U/L Albumin 3.2 L (3.4-5.0) gm/dl Medications Administered Home Medications Medication Instructions Recorded Confirmed Last Taken glipizide 5 mg tablet, extended 5 mg PO DAILY 11/22/20 12/16/23 11/22/20 release 24 hr pantoprazole 40 mg tablet,delayed 40 mg PO DAILY 11/22/20 12/16/23 11/22/20 release albuterol sulfate 90 mcg/actuation 2 inh inhalation Q6H PRN Shortness 02/21/21 12/16/23 Unknown aerosol inhaler (Ventolin HFA) Of Breath Or Wheezing atorvastatin 80 mg tablet 80 mg PO HS 12/14/23 12/16/23 Unknown linagliptin 5 mg tablet (Tradjenta) 5 mg PO DAILY 12/14/23 12/16/23 12/14/23 losartan 25 mg tablet 25 mg PO DAILY 12/14/23 12/16/23 12/14/23 mometasone 220 mcg/actuation(120 0 inh inhalation UD 12/14/23 12/16/23 Unknown doses)breath activated powder inhaler (Asmanex Twisthaler) benzonatate 200 mg capsule 200 mg PO BID PRN Cough 12/16/23 12/16/23 Unknown ondansetron HCl 4 mg tablet 4 mg PO Q8H PRN n/v 12/16/23 12/16/23 Unknown oxycodone 5 mg tablet 5 mg PO Q6H PRN Pain 12/16/23 12/16/23 Unknown prednisone 20 mg tablet 20 mg PO UD 12/16/23 12/16/23 Unknown Active Medications Generic Name Dose Route Start Last Admin Trade Name Freq PRN Reason Stop Dose Admin Acetaminophen 650 mg 12/16/23 13:26 12/18/23 20:20 Acetaminophen 325 Mg Tab PO 01/15/24 13:25 650 mg Q4H PRN Administration Pain or Fever Acetaminophen 1,000 mg 12/17/23 13:00 12/19/23 12:27 Acetaminophen 500 Mg Tab PO 01/16/24 12:59 Not Given Q8H CHUYITA Acetaminophen/Butalbital/Caffeine 2 tab 12/19/23 11:16 12/19/23 12:26 Butalbital/Acetamin/Caffeine Tab PO 01/18/24 11:15 2 tab Q4H PRN Administration Headache Albuterol 3 ml 12/16/23 13:26 12/19/23 01:59 Albut/Ipratrop 3mg/0.5mg Neb 3 Ml Vial NEB 01/15/24 13:25 3 ml QIDR PRN Administration Shortness Of Breath Or Wheezing Protocol Atorvastatin Calcium 80 mg 12/16/23 21:00 12/18/23 20:14 Atorvastatin 40 Mg Tab PO 01/15/24 20:59 80 mg HS CHUYITA Administration Benzonatate 200 mg 12/16/23 13:26 12/16/23 16:01 Benzonatate 100 Mg Capsule PO 01/15/24 13:25 200 mg BID PRN Administration Cough Divalproex Sodium 500 mg 12/19/23 09:00 12/19/23 07:53 Divalproex Delay Release 500 Mg Tab PO 01/18/24 08:59 500 mg BID CHUYITA Administration Enoxaparin Sodium 40 mg 12/16/23 13:30 12/18/23 20:13 Enoxaparin Inj 40 Mg/0.4 Ml Syr SQ 01/15/24 13:29 40 mg Q24H CHUYITA Administration Guaifenesin 1,200 mg 12/17/23 09:00 12/19/23 07:52 Guaifenesin 600 Mg Tabcr PO 01/16/24 08:59 1,200 mg Q12 CHUYITA Administration Ceftriaxone Sodium 2,000 mg in 50 mls @ 100 mls/hr 12/16/23 20:00 12/19/23 07:57 Rocephin IV 12/22/23 23:59 Infused Q12H CHUYITA Infusion Dexamethasone 10 mg/ Syringe 2.5 mls @ 1 mls/min 12/16/23 20:00 12/19/23 13:01 IV 12/20/23 19:59 1 mls/min Q6H CHUYITA Administration Remdesivir 100 mg/ Sodium 250 mls @ 250 mls/hr 12/18/23 12:00 12/19/23 13:26 Chloride IV 12/21/23 12:59 Infused Q24H CHUYITA Infusion Ampicillin Sodium/Sulbactam Sodium 3,000 mg in 100 mls @ 200 mls/hr 12/17/23 13:15 12/19/23 12:58 Unasyn IV 12/24/23 13:14 Infused Q6H CHUYITA Infusion Insulin Aspart 0 units 12/16/23 13:35 12/19/23 12:40 Insulin Aspart Per Unit Charge SC 01/15/24 13:34 3 units ACHS CHUYITA Administration Insulin Glargine 5 units 12/18/23 21:00 12/19/23 08:50 Lantus Per Unit Charge SQ 01/17/24 20:59 5 units BID CHUYITA Administration Losartan Potassium 25 mg 12/17/23 09:00 12/19/23 07:51 Losartan Potassium 25 Mg Tab PO 01/16/24 08:59 25 mg DAILY CHUYITA Administration Morphine Sulfate 2 mg 12/16/23 13:26 12/16/23 14:02 Morphine Sulfate 2 Mg/Ml Carp IV 12/30/23 13:25 2 mg Q4H PRN Administration Severe Pain (Scale 7, 8, 9,10) Ondansetron HCl 4 mg 12/16/23 13:26 12/16/23 13:50 Ondansetron Inj 2 Mg/Ml 2 Ml Vial IV 01/15/24 13:25 4 mg Q6H PRN Administration Nausea Oxycodone HCl 5 mg 12/16/23 13:26 12/18/23 04:46 Oxycodone Hcl Ir 5 Mg Tab (Immediate Release) PO 12/30/23 13:25 5 mg Q6H PRN Administration Moderate Pain (Scale 4, 5, 6) Pantoprazole Sodium 40 mg 12/17/23 09:00 12/19/23 07:52 Pantoprazole 40 Mg Tab PO 01/16/24 08:59 40 mg DAILY CHUYITA Administration (4) Headache Headache chronicity pattern: acute headache Headache type: unspecified Intractability: intractable Qualified Code(s): R51.9 - Headache, unspecified
[2023-12-19] MEDS: FUROSEMIDE INJ 20 MG/2 ML VIAL IV SCH (15:47)
[2023-12-19] MEDS: LANTUS PER UNIT CHARGE SQ SCH (21:25)
[2023-12-20] MEDS: CALCIUM CARBONATE 500 MG CHEWABLE TAB PO PRN (02:14)
--- NOTE | 2023-12-20 02:44 | Communication Note ---
Date of Service: December 20, 2023
[2023-12-20 03:30] LABS: Hematocrit (blood only) 37.2 % (42.0-52.0); Hemoglobin 13.5 g/dl (14.0-18.0); Mean Corpuscular Hemoglobin 30.6 pg (25.0-34.0); Mean Corpuscular Hgb Conc 36.3 g/dL (32.0-36.0); Mean Corpuscular Volume 84.4 fL (80.0-100.0); Mean Platelet Volume 9.5 fL (9.4-12.4); Platelet Count 227 K/uL (130-400); RDW Coefficient of Variation 12.5 % (11.5-14.5); RDW Standard Deviation 38.4 fL (36.4-46.3); Red Blood Count 4.41 M/uL (4.70-6.10); White Blood Count 5.82 K/ul (4.8-10.8)
[2023-12-20 03:46] LABS: Albumin Globulin Ratio 1.1 (0.9-2); Albumin Level 3.3 gm/dl (3.4-5.0); BUN Creatinine Ratio 25.9 (10-20); Bilirubin,Total 0.5 mg/dl (0.2-1.0); C Reactive Protein 1.7 mg/dl (0-0.5); Calcium 7.8 mg/dl (8.6-10.3); Creatinine Clr Calc Pharmacy 62.2 ml/min; Est GFR (African American) 77.3 ml/min; Est GFR (Non-African American) 66.7 ml/min; Magnesium 2.8 mg/dl (1.7-2.4); Phosphorus 3.7 mg/dl (2.5-4.9); Potassium 3.7 mmol/L (3.5-5.1); Total Protein 6.3 gm/dl (6.0-8.3)
[2023-12-20] MEDS: LOSARTAN POTASSIUM 50 MG TAB PO SCH (04:03)
[2023-12-20] MEDS: KETOROLAC TROMETHAMINE 15 MG/ML VIAL IV ONE (04:14)
[2023-12-20 04:21] LABS: Partial Thromboplastin Ratio 0.9; Partial Thromboplastin Time 25 Seconds (21-31)
[2023-12-20] MEDS: PROMETHAZINE 6.25 MG/50.25 ML BAG IV STA (04:41)
--- NOTE | 2023-12-20 08:57 | Pulmonology Progress Note ---
Date of Service December 20, 2023 Assessment & Plan (1) Pneumonia due to COVID-19 virus: (2) Acute hypoxemic respiratory failure: (3) Headache: Headache chronicity pattern: acute headache Headache type: u nspecified Intractability: intractable Qualified Code(s): R51.9 - Headache, unspecified Plan CT chest 12/17/2023 personally reviewed: Patchy groundglass opacities appreciated bilaterally especially on the periphery More on the right side Motion degraded study Minimal subcarinal lymphadenopathy --Acute hypoxic respiratory failure Secondary to multilobar COVID-19 pneumonia COVID-19 PCR positive, 12/09/2023 CRP 15.49 --> 4.06 Procalcitonin 0.10 Continue with O2 supplementation to keep oxygen saturation between 90-92%. Awake proning will be helpful Continue with incentive spirometry Continue with flutter valve. Recommend patient to be kept euvolemic to negative balance Plan: In/out: +4.5 L since coming to the hospital I think it is reasonable to diurese the patient a little. Would recommend to continue with dexamethasone 10 mg for total of 10 days. No indication to give tocilizumab or baricitinib. Recommend repeat CAT scan of the chest to be done in 8-12 weeks Patient unfortunate was not able to tolerate CPAP. Today in the morning again he stated that he would not like to have any treatment and wants to be comfortable. I highly recommend to get psych involved because when I saw the patient he was totally normal and saying that he is willing to continue with the treatment. Case was discussed with RN and primary team Please note the above document was generated using voice recognition software. It may contain grammatical, syntax or spelling errors.Any formal questions or concerns about the content, text or information contained within the body of this dictation should be directly addressed to the provider for clarification. Admission and Anticipated Discharge Date Admission Date: December 16, 2023 Subjective Patient seen and examined at bedside. No acute distress, no adverse events overnight He was saturating 93-94% on 6 L nasal cannula Did complain of cough. Not bringing up any phlegm He was complaining of headache. Denies any nausea vomiting Fair appetite. But unfortunately was not able to tolerate CPAP overnight Review of Systems 2 Review of Systems: All systems reviewed & are unremarkable except as noted in Subjective Physical Exam 2 Physical Exam: Constitutional: No acute distress HEENT: EOMI, PERRLA Respiratory system: Decreased air entry bilaterally, no wheeze, no rhonchi, positive crackles bilaterally CVS: S1-S2 positive, no murmurs or gallops Abdomen: Soft, nontender, nondistended, positive bowel sounds x4 Extremities: +2 pulses bilaterally radialis/ dorsalis pedis, no cyanosis, no edema Neuro: Awake alert oriented x3 Psych: Normal mood and affect G/U: No [place] Skin: no rashes, warm and dry Lymphatic: no cervical or axillary lymphadenopathy Results & Data Results & Data Vital Signs (Past 12 Hours) Vital Signs Temp Pulse Pulse Resp BP Pulse Ox O2 Del Method 12/20/23 08:00 36.7 C 70 16 154/71 H 99 Nasal Cannula 12/20/23 04:04 36.8 C 69 18 162/89 H 93 BiPAP 12/20/23 00:21 36.7 C 67 21 160/71 H 96 BiPAP 12/20/23 00:00 BiPAP 12/19/23 22:36 64 21 96 12/19/23 22:01 65 O2 Flow Rate FiO2 12/20/23 08:00 4 12/20/23 04:04 12/20/23 00:21 12/20/23 00:00 50 12/19/23 22:36 50 12/19/23 22:01 Laboratory Results 12/20/23 03:12 12/20/23 03:12 PG Care Time/CCT Total # of Minutes Spent Total Time Spent with Patient: Total time spent is greater than 50% in coordination of care (as documented) at patient's floor/unit and/or counseling patient: Coding Level of Care Code 89824 SUB INP/OBS CARE 2/35MIN Diagnoses Pneumonia due to COVID-19 virus U07.1; J12.82 Acute hypoxemic respiratory failure J96.01 Headache R51.9 Headache chronicity pattern: acute headache Headache type: unspecified Intractability: intractable
--- NOTE | 2023-12-20 09:31 | Communication Note ---
Date of Service: December 20, 2023 Family and pt asked for family meeting early am today. I was paged by RN after patient stated he wants to be in comfort measures and declined all his meds to RN. Pt initially wanted to go comfort route, after discussion what it entails, he doesn't want MRI, he doesn't want CPAP/BPAP. He wants current treatment w/ comfort on focus and if he deteriorates, will consider comfort measures. Family would like palliative care on board for ongoing GOC discussion. We pulled out CXR and discussed the imagings at bedside. I answered of the Pt's children's questions, and at the end they decided to continue current treatment plan/declined MRI and CPAP/BPAP at the moment. RN communicated to c/w current treatment plan. Time spent for family meeting: approx 35 min.
[2023-12-20] MEDS ORDERED: CALCIUM CARBONATE 500 MG CHEWABLE TAB PO PRN (09:45)
[2023-12-20] MEDS: PANTOprazole 40 MG in SYRINGE 0 ML IV SCH (11:03)
--- NOTE | 2023-12-20 14:33 | Palliative Care Consultation ---
Date of Consultation December 20, 2023 Assessment & Plan (1) Headache: Will move OxyIR 5mg to PO q4h prn, Hold parameters added will add flonase trial for possible sinus pressure related congestion (2) At risk for dehydration due to poor fluid intake: he is open to trying nutrition supplement if juice flavored, he does not like dairy will ask nutrition colleagues to have this added to his diet along with servings of daily fresh fruit with meals encouraged family to bring him some favored snacks and drinks from home as well (3) Weakness generalized: (4) Malaise and fatigue: (5) Advanced care planning/counseling discussion: A 45min face to face ACP discussion was held at bedside with pt and his 3 sons at bedside, son was translating. patient c/o headache, fatigue, GI issues/hx gastritis and ?GERD. Sensitive stomach. initially states he was never offered covid tx. we reviewed how he refused paxlovid and is now out of the window to take it but is on decadron and remdesivir. the headaches have been worsening for ?few months, now exacerbated by covid perhaps. always bothered by too much light. has sinus pressure and congestion so i will add flonase as a trial to decongest him. i told him he will need formal pulm med eval with PFTs etc a few mos after this dc and that right now there is nothing we feel indicates terminality of illness. I told him covid can be a challenging road and heavy symptom burden but part of making that better or at least trying to improve it, is to let medical teams know what is bothering him in real time. appetite is poor so he is open to trying nutritional supplement with breeze and asked for some fresh fruit as snack and with meals. he and family have been consistently inconsistent in their goals of care - what became evident from our discussion today is when pt feels badly, he tends to "not want anything done" but when he had some amelioration of symptoms, he then feels like he may want some interventions and testing; accordingly, family is also very reactive to his declarations which can be a very "in the moment" reactivity instead of watching for the overall trend. i suggested we see what the overall trend is like in 72 hrs. Son reports he had a decent QOL prior to admission, sister provides for all of pt needs and patient has a PS 0. he has no issues or limitations with self care and the primary limiting factor for him is his sensitive stomach and general selectiveness with food. sons report he does not eat much in general. they also note he tends to enjoy fruit so perhaps an enticement may be to provide fresh fruit through the day and as noted above he is open to trying a nutritional drink so long as it is not dairy based and has a fruit juice flavor. 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 (6) Cough: Cough type: acute Qualified Code(s): R05.1 - Acute cough (7) Palliative care by specialist: Introduced Palliative Medicine and explained our role in patient's care. Patient and/or family were receptive to palliative services for goals of care discussions. Reviewed we are different from hospice, a home health nurse visiting service. Plan As above Flonase ordered nutrition assist appreciated Thank you for allowing us to participate in the ongoing care of this patient. Please page with any additional concerns. Mariusz Limon DNP Director, Palliative Medicine History of Present Illness Reason for Consultation: goals of care Attending Physician: Emilee Carnes MD History of Present Illness Mr Peoples came to ED 12/15 with progressive headache and resp failure Found to have covid LP attempted x2 without success Unable to tolerate MRI at present time Per ED note: "Patient's daughter acts as manufacturing business analyst, as patient is primarily [place]-speaking. Offered formal manufacturing business analyst but she declined. She reports that the patient tested positive for COVID on 12/07/2023 (9 days ago). Reports patient has had a cough and has been on steroids intermittently since. Patient was seen in the emergency department on 12/09/2023 and diagnosed with bronchitis with his COVID. He was not started on Paxlovid after a thorough discussion. He was given a dose of 125 mg IV Solu-Medrol and 10 mg IV Toradol and had some improvement in his symptoms. He was discharged home with a Medrol Dosepak. Patient reportedly has been having a headache over the last week. Daughter states that the patient has been complaining of a constant headache for the last 7 days. Reports in the last 48 hours a headache has been significantly worse. Patient locates the pain diffusely across his anterior forehead. He has never had headaches like this before outside of the last week. Denies any recent falls or head injury or chiropractic manipulation of his neck. He reports some blurry vision over the last 48 hours. Denies any double vision. Denies any numbness, tingling or weakness in his extremities. He did have a fever of 100.1 yesterday, but when they went to see his primary care provider he was afebrile. Patient was seen in the emergency department 2 days ago for his persistent headache and was given a headache cocktail with some improvement in his symptoms. He was also given a short course of oxycodone, which reportedly did seem to help his headache at the time. Daughter reports that shortly after getting home after the ER visit, his headache returned. Daughter reports that yesterday when they went to the patient's PCP, he was given a further prescription for oxycodone, but he has taken 2-3 doses of this for his persistent headache, with little relief in symptoms. He has had associated vomiting with the headache. He is not on any anticoagulation. Denies any recent surgeries or long flights. Denies any DVT or PE history." ED visit 12/08, 12/13 for same symptoms. 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 vision very sensitive to light at this time and he prefers to be in a darkened room. he has been refusing random aspects of care - some days he declines AM care, meds, labs, interventions patient and family have expressed wishes for comfort care, no aggressive care then wanting active treatment for covid and headache workup he also reports poor appetite, son notes he is generally not much of an eater, tends to like garage door opener installer foods felipe fruit and does not care for heavy/dairy based food or drinks not taking much PO this admission. sipping on drinks thru the day but not eating a lot and states he also does not like the food options here family has not been bringing in his preferred snacks/drinks and son states raspberries might be worth trying Allergies Allergy/AdvReac Type Severity Reaction Status Date / Time No Known Allergies Allergy Verified 02/21/21 12:03 Home Medications Medication Instructions Recorded Confirmed Type glipizide 5 mg tablet, extended 5 mg PO DAILY 11/22/20 12/16/23 History release 24 hr pantoprazole 40 mg tablet,delayed 40 mg PO DAILY 11/22/20 12/16/23 History release albuterol sulfate 90 mcg/actuation 2 inh inhalation Q6H PRN Shortness 02/21/21 12/16/23 History aerosol inhaler (Ventolin HFA) Of Breath Or Wheezing atorvastatin 80 mg tablet 80 mg PO HS 12/14/23 12/16/23 History linagliptin 5 mg tablet (Tradjenta) 5 mg PO DAILY 12/14/23 12/16/23 History losartan 25 mg tablet 25 mg PO DAILY 12/14/23 12/16/23 History mometasone 220 mcg/actuation(120 0 inh inhalation UD 12/14/23 12/16/23 History doses)breath activated powder inhaler (Asmanex Twisthaler) benzonatate 200 mg capsule 200 mg PO BID PRN Cough 12/16/23 12/16/23 History ondansetron HCl 4 mg tablet 4 mg PO Q8H PRN n/v 12/16/23 12/16/23 History oxycodone 5 mg tablet 5 mg PO Q6H PRN Pain 12/16/23 12/16/23 History prednisone 20 mg tablet 20 mg PO UD 12/16/23 12/16/23 History Patient History Medical History (Updated 12/20/23 @ 14:31 by Sue Limon DNP) Left ear hearing loss Bilateral tinnitus Vertigo Surgical History (Updated 12/16/23 @ 12:50 by Molly Machuca PA-C) History of esophagogastroduodenoscopy (EGD) History of colonoscopy Status post mastoidectomy Family History (Updated 12/16/23 @ 12:51 by Molly Machuca PA-C) Mother Diabetes Social History Smoking Status: Former smoker Hx Alcohol Use: No Hx Substance Use: No Preferred Language: [place]ar[place] Communication Ability: Effective Communication Tools: Physical Gestures and Other Grinder Set Up Operator Thread Tool Required: Yes Beliefs That Will Affect Care: Mormon Current Living Situation: Alone Feels Safe at Home: Yes Assistive Devices: Cane and Walker Review of Systems Review of Systems: All systems reviewed & are unremarkable except as noted in Subjective Physical Exam Constitutional: + thin, + language barrier, cooperative and + underweight Eyes: PERRL, conjunctivae normal, anicteric sclerae ENMT: dentition fair Neck: normal visual inspection and trachea midline Respiratory: normal respiratory effort (mildly increased with conversation), + cough, + pursed lip breathing and symmetric chest movement Cardiovascular: Rate/Rhythm: regular rate and regular rhythm Vessels: no JVD Gastrointestinal (Abdomen): BS+ Musculoskeletal: muscle tenseness in neck/upper cervical ROM somewhat limited Skin: flushed face mild diaphoresis Neurologic: aaox3 prydeinig speaking son is translating Results & Data Vital Signs (Past 12 Hours) Vital Signs Temp Pulse Resp BP Pulse Ox O2 Del Method O2 Flow Rate 12/20/23 11:44 36.8 C 87 16 160/86 H 94 Nasal Cannula 6 12/20/23 09:21 High Flow Nasal Cannula 8 12/20/23 08:00 36.7 C 70 16 154/71 H 99 Nasal Cannula 6 12/20/23 04:04 36.8 C 69 18 162/89 H 93 BiPAP Laboratory Results 12/20/23 12/20/23 12/20/23 Range/Units 21:25 21:22 10:01 WBC (4.8-10.8) K/ul RBC (4.70-6.10) M/uL Hgb (14.0-18.0) g/dl Hct (42.0-52.0) % MCV (80.0-100.0) fL MCH (25.0-34.0) pg MCHC (32.0-36.0) g/dL RDW Std Deviation (36.4-46.3) fL RDW Coeff of John (11.5-14.5) % Plt Count (130-400) K/uL MPV (9.4-12.4) fL Neutrophils % (Manual) % Lymphocytes % (Manual) % Monocytes % (Manual) % Neutrophils # (Manual) (1.40-6.50) K/uL Total Absolute Neuts (1.4-6.5) K/uL Lymphocytes # (Manual) (1.2-3.4) K/uL Total Abs Lymphocytes (1.2-3.4) K/uL Monocytes # (Manual) (0.11-0.59) K/uL RBC Morphology PT (9.0-12.0) Seconds INR (0.9-1.1) APTT (21-31) Seconds PTT Ratio ABG pH (7.35-7.45) ABG pCO2 (35-46) mmHg ABG pO2 (80-95) mmHg ABG HCO3 (19-24) mmol/L ABG O2 Saturation (90-95) % ABG Base Excess (-9-1.8) mEq/L Sha Test (Pos) VBG pH (7.36-7.41) VBG pCO2 (38-50) mmHg VBG pO2 mmHg VBG HCO3 mmol/L VBG O2 Saturation % VBG Base Excess mEq/L Oxygen Given Sodium (136-145) mmol/L Potassium (3.5-5.1) mmol/L Chloride (98-107) mmol/L Carbon Dioxide (21-32) mmol/L Anion Gap (3-11) BUN (6-23) mg/dl Creatinine (0.6-1.4) mg/dl Est Cr Clr Drug Dosing Est GFR ( Amer) ml/min Est GFR (Non-Af Amer) ml/min BUN/Creatinine Ratio (10-20) Glucose (70-99(Fasting)) mg/dl POC Glucose 307 H* 344 H* 204 H (70-99) mg/dl Estimat Average Glucose mg/dl Hemoglobin A1c (4.5-5.6) % Lactate (0.4-2.0) mmol/L Calcium (8.6-10.3) mg/dl Phosphorus (2.5-4.9) mg/dl Magnesium (1.7-2.4) mg/dl Total Bilirubin (0.2-1.0) mg/dl Direct Bilirubin (0-0.2) mg/dl AST (13-39) U/L ALT (7-52) U/L Alkaline Phosphatase (34-104) U/L Troponin I High Sens (0-20) pg/ml C-Reactive Protein (0-0.5) mg/dl B-Natriuretic Peptide (0-100) pg/ml Total Protein (6.0-8.3) gm/dl Albumin (3.4-5.0) gm/dl Globulin (2.5-4.0) gm/dl Albumin/Globulin Ratio (0.9-2) Lipase (11-82) U/L Procalcitonin (0-0.5) ng/ml Urine Color Urine Appearance (Clear) Urine pH (4.5-7.5) Ur Specific Corbett (1.000-1.030) Urine Protein (Negative) Urine Glucose (UA) (Negative) Urine Ketones (Negative) Urine Blood (Negative) Urine Nitrite (Negative) Urine Bilirubin (Negative) Urine Urobilinogen (Negative) Ur Leukocyte Esterase (Negative) Nasal Screen MRSA (PCR) (Negative) Random Vancomycin (10-20) mcg/ml Adenovirus (PCR) (NotDetected) Anaplasma Smear A. phagocytophilum DNA Babesia Smear Babesia microti DNA PCR B. pertussis DNA (PCR) (NotDetected) B.parapertussis DNA PCR (NotDetected) Lyme Disease Screen (Negative) C. pneumoniae DNA (PCR) (NotDetected) Coronavirus OC43 (PCR) (NotDetected) Coronavirus HKU1 (PCR) (NotDetected) Coronavirus 229E (PCR) (NotDetected) SARS-CoV-2 (PCR) (NotDetected) Coronavirus NL63 (PCR) (NotDetected) Ehrlichia DNA (PCR) Human Metapneumovir PCR (NotDetected) Influenza Type A (PCR) (NotDetected) Influenza Type B (PCR) (NotDetected) M. pneumoniae (PCR) (NotDetected) Parainfluenza 1 (PCR) (NotDetected) Parainfluenza 2 (PCR) (NotDetected) Parainfluenza 3 (PCR) (NotDetected) Parainfluenza 4 (PCR) (NotDetected) Q Fever Phase I IgG Ab Q Fever Phase I IgM Ab Q Fever Phase II IgG Ab Q Fever Phase II IgM Ab RSV (PCR) (NotDetected) Entero/Rhino (PCR) (NotDetected) Rickettsia IgG Ab Rickettsia IgM Ab Typhus Fever IgG Ab Typhus Fever IgM Ab 12/20/23 12/19/23 12/19/23 Range/Units 03:12 20:29 15:53 WBC 5.82 (4.8-10.8) K/ul RBC 4.41 L (4.70-6.10) M/uL Hgb 13.5 L (14.0-18.0) g/dl Hct 37.2 L (42.0-52.0) % MCV 84.4 (80.0-100.0) fL MCH 30.6 (25.0-34.0) pg MCHC 36.3 H (32.0-36.0) g/dL RDW Std Deviation 38.4 (36.4-46.3) fL RDW Coeff of John 12.5 (11.5-14.5) % Plt Count 227 (130-400) K/uL MPV 9.5 (9.4-12.4) fL Neutrophils % (Manual) % Lymphocytes % (Manual) % Monocytes % (Manual) % Neutrophils # (Manual) (1.40-6.50) K/uL Total Absolute Neuts (1.4-6.5) K/uL Lymphocytes # (Manual) (1.2-3.4) K/uL Total Abs Lymphocytes (1.2-3.4) K/uL Monocytes # (Manual) (0.11-0.59) K/uL RBC Morphology PT (9.0-12.0) Seconds INR (0.9-1.1) APTT 25 (21-31) Seconds PTT Ratio 0.9 ABG pH (7.35-7.45) ABG pCO2 (35-46) mmHg ABG pO2 (80-95) mmHg ABG HCO3 (19-24) mmol/L ABG O2 Saturation (90-95) % ABG Base Excess (-9-1.8) mEq/L Sha Test (Pos) VBG pH (7.36-7.41) VBG pCO2 (38-50) mmHg VBG pO2 mmHg VBG HCO3 mmol/L VBG O2 Saturation % VBG Base Excess mEq/L Oxygen Given Sodium 138 (136-145) mmol/L Potassium 3.7 (3.5-5.1) mmol/L Chloride 101 (98-107) mmol/L Carbon Dioxide 27 (21-32) mmol/L Anion Gap 10 (3-11) BUN 29 H (6-23) mg/dl Creatinine 1.12 (0.6-1.4) mg/dl Est Cr Clr Drug Dosing 62.2 Est GFR ( Amer) 77.3 ml/min Est GFR (Non-Af Amer) 66.7 ml/min BUN/Creatinine Ratio 25.9 H (10-20) Glucose 130 H (70-99(Fasting)) mg/dl POC Glucose 206 H 262 H (70-99) mg/dl Estimat Average Glucose mg/dl Hemoglobin A1c (4.5-5.6) % Lactate (0.4-2.0) mmol/L Calcium 7.8 L (8.6-10.3) mg/dl Phosphorus 3.7 (2.5-4.9) mg/dl Magnesium 2.8 H (1.7-2.4) mg/dl Total Bilirubin 0.5 (0.2-1.0) mg/dl Direct Bilirubin (0-0.2) mg/dl AST 64 H (13-39) U/L ALT 43 (7-52) U/L Alkaline Phosphatase 34 (34-104) U/L Troponin I High Sens 11.2 (0-20) pg/ml C-Reactive Protein 1.70 H (0-0.5) mg/dl B-Natriuretic Peptide (0-100) pg/ml Total Protein 6.3 (6.0-8.3) gm/dl Albumin 3.3 L (3.4-5.0) gm/dl Globulin 3.0 (2.5-4.0) gm/dl Albumin/Globulin Ratio 1.1 (0.9-2) Lipase (11-82) U/L Procalcitonin (0-0.5) ng/ml Urine Color Urine Appearance (Clear) Urine pH (4.5-7.5) Ur Specific Corbett (1.000-1.030) Urine Protein (Negative) Urine Glucose (UA) (Negative) Urine Ketones (Negative) Urine Blood (Negative) Urine Nitrite (Negative) Urine Bilirubin (Negative) Urine Urobilinogen (Negative) Ur Leukocyte Esterase (Negative) Nasal Screen MRSA (PCR) (Negative) Random Vancomycin (10-20) mcg/ml Adenovirus (PCR) (NotDetected) Anaplasma Smear A. phagocytophilum DNA Babesia Smear Babesia microti DNA PCR B. pertussis DNA (PCR) (NotDetected) B.parapertussis DNA PCR (NotDetected) Lyme Disease Screen (Negative) C. pneumoniae DNA (PCR) (NotDetected) Coronavirus OC43 (PCR) (NotDetected) Coronavirus HKU1 (PCR) (NotDetected) Coronavirus 229E (PCR) (NotDetected) SARS-CoV-2 (PCR) (NotDetected) Coronavirus NL63 (PCR) (NotDetected) Ehrlichia DNA (PCR) Human Metapneumovir PCR (NotDetected) Influenza Type A (PCR) (NotDetected) Influenza Type B (PCR) (NotDetected) M. pneumoniae (PCR) (NotDetected) Parainfluenza 1 (PCR) (NotDetected) Parainfluenza 2 (PCR) (NotDetected) Parainfluenza 3 (PCR) (NotDetected) Parainfluenza 4 (PCR) (NotDetected) Q Fever Phase I IgG Ab Q Fever Phase I IgM Ab Q Fever Phase II IgG Ab Q Fever Phase II IgM Ab RSV (PCR) (NotDetected) Entero/Rhino (PCR) (NotDetected) Rickettsia IgG Ab Rickettsia IgM Ab Typhus Fever IgG Ab Typhus Fever IgM Ab 12/19/23 12/19/23 12/19/23 Range/Units 11:45 07:27 02:41 WBC 7.89 (4.8-10.8) K/ul RBC 4.34 L (4.70-6.10) M/uL Hgb 13.1 L (14.0-18.0) g/dl Hct 38.0 L (42.0-52.0) % MCV 87.6 (80.0-100.0) fL MCH 30.2 (25.0-34.0) pg MCHC 34.5 (32.0-36.0) g/dL RDW Std Deviation 41.8 (36.4-46.3) fL RDW Coeff of John 12.9 (11.5-14.5) % Plt Count 216 (130-400) K/uL MPV 9.5 (9.4-12.4) fL Neutrophils % (Manual) % Lymphocytes % (Manual) % Monocytes % (Manual) % Neutrophils # (Manual) (1.40-6.50) K/uL Total Absolute Neuts (1.4-6.5) K/uL Lymphocytes # (Manual) (1.2-3.4) K/uL Total Abs Lymphocytes (1.2-3.4) K/uL Monocytes # (Manual) (0.11-0.59) K/uL RBC Morphology PT (9.0-12.0) Seconds INR (0.9-1.1) APTT (21-31) Seconds PTT Ratio ABG pH (7.35-7.45) ABG pCO2 (35-46) mmHg ABG pO2 (80-95) mmHg ABG HCO3 (19-24) mmol/L ABG O2 Saturation (90-95) % ABG Base Excess (-9-1.8) mEq/L Sha Test (Pos) VBG pH 7.47 H (7.36-7.41) VBG pCO2 33 L (38-50) mmHg VBG pO2 33 mmHg VBG HCO3 24 mmol/L VBG O2 Saturation 61.4 % VBG Base Excess 0.9 mEq/L Oxygen Given Sodium 136 (136-145) mmol/L Potassium 4.2 (3.5-5.1) mmol/L Chloride 102 (98-107) mmol/L Carbon Dioxide 24 (21-32) mmol/L Anion Gap 10 (3-11) BUN 31 H (6-23) mg/dl Creatinine 1.17 (0.6-1.4) mg/dl Est Cr Clr Drug Dosing 59.6 Est GFR ( Amer) 73.3 ml/min Est GFR (Non-Af Amer) 63.2 ml/min BUN/Creatinine Ratio 26.5 H (10-20) Glucose 217 H (70-99(Fasting)) mg/dl POC Glucose 242 H 255 H (70-99) mg/dl Estimat Average Glucose mg/dl Hemoglobin A1c (4.5-5.6) % Lactate (0.4-2.0) mmol/L Calcium 7.7 L (8.6-10.3) mg/dl Phosphorus 3.2 (2.5-4.9) mg/dl Magnesium 2.5 H (1.7-2.4) mg/dl Total Bilirubin 0.5 (0.2-1.0) mg/dl Direct Bilirubin 0.1 (0-0.2) mg/dl AST 45 H (13-39) U/L ALT 28 (7-52) U/L Alkaline Phosphatase 33 L (34-104) U/L Troponin I High Sens (0-20) pg/ml C-Reactive Protein (0-0.5) mg/dl B-Natriuretic Peptide (0-100) pg/ml Total Protein 6.3 (6.0-8.3) gm/dl Albumin 3.2 L (3.4-5.0) gm/dl Globulin (2.5-4.0) gm/dl Albumin/Globulin Ratio (0.9-2) Lipase (11-82) U/L Procalcitonin (0-0.5) ng/ml Urine Color Urine Appearance (Clear) Urine pH (4.5-7.5) Ur Specific Corbett (1.000-1.030) Urine Protein (Negative) Urine Glucose (UA) (Negative) Urine Ketones (Negative) Urine Blood (Negative) Urine Nitrite (Negative) Urine Bilirubin (Negative) Urine Urobilinogen (Negative) Ur Leukocyte Esterase (Negative) Nasal Screen MRSA (PCR) (Negative) Random Vancomycin (10-20) mcg/ml Adenovirus (PCR) (NotDetected) Anaplasma Smear A. phagocytophilum DNA Babesia Smear Babesia microti DNA PCR B. pertussis DNA (PCR) (NotDetected) B.parapertussis DNA PCR (NotDetected) Lyme Disease Screen (Negative) C. pneumoniae DNA (PCR) (NotDetected) Coronavirus OC43 (PCR) (NotDetected) Coronavirus HKU1 (PCR) (NotDetected) Coronavirus 229E (PCR) (NotDetected) SARS-CoV-2 (PCR) (NotDetected) Coronavirus NL63 (PCR) (NotDetected) Ehrlichia DNA (PCR) Human Metapneumovir PCR (NotDetected) Influenza Type A (PCR) (NotDetected) Influenza Type B (PCR) (NotDetected) M. pneumoniae (PCR) (NotDetected) Parainfluenza 1 (PCR) (NotDetected) Parainfluenza 2 (PCR) (NotDetected) Parainfluenza 3 (PCR) (NotDetected) Parainfluenza 4 (PCR) (NotDetected) Q Fever Phase I IgG Ab Q Fever Phase I IgM Ab Q Fever Phase II IgG Ab Q Fever Phase II IgM Ab RSV (PCR) (NotDetected) Entero/Rhino (PCR) (NotDetected) Rickettsia IgG Ab Rickettsia IgM Ab Typhus Fever IgG Ab Typhus Fever IgM Ab 12/18/23 12/18/23 12/18/23 Range/Units Unknown 19:59 16:59 WBC (4.8-10.8) K/ul RBC (4.70-6.10) M/uL Hgb (14.0-18.0) g/dl Hct (42.0-52.0) % MCV (80.0-100.0) fL MCH (25.0-34.0) pg MCHC (32.0-36.0) g/dL RDW Std Deviation (36.4-46.3) fL RDW Coeff of John (11.5-14.5) % Plt Count (130-400) K/uL MPV (9.4-12.4) fL Neutrophils % (Manual) % Lymphocytes % (Manual) % Monocytes % (Manual) % Neutrophils # (Manual) (1.40-6.50) K/uL Total Absolute Neuts (1.4-6.5) K/uL Lymphocytes # (Manual) (1.2-3.4) K/uL Total Abs Lymphocytes (1.2-3.4) K/uL Monocytes # (Manual) (0.11-0.59) K/uL RBC Morphology PT (9.0-12.0) Seconds INR (0.9-1.1) APTT (21-31) Seconds PTT Ratio ABG pH (7.35-7.45) ABG pCO2 (35-46) mmHg ABG pO2 (80-95) mmHg ABG HCO3 (19-24) mmol/L ABG O2 Saturation (90-95) % ABG Base Excess (-9-1.8) mEq/L Sha Test (Pos) VBG pH (7.36-7.41) VBG pCO2 (38-50) mmHg VBG pO2 mmHg VBG HCO3 mmol/L VBG O2 Saturation % VBG Base Excess mEq/L Oxygen Given Sodium (136-145) mmol/L Potassium (3.5-5.1) mmol/L Chloride (98-107) mmol/L Carbon Dioxide (21-32) mmol/L Anion Gap (3-11) BUN (6-23) mg/dl Creatinine (0.6-1.4) mg/dl Est Cr Clr Drug Dosing Est GFR ( Amer) ml/min Est GFR (Non-Af Amer) ml/min BUN/Creatinine Ratio (10-20) Glucose (70-99(Fasting)) mg/dl POC Glucose 159 H 221 H (70-99) mg/dl Estimat Average Glucose mg/dl Hemoglobin A1c (4.5-5.6) % Lactate (0.4-2.0) mmol/L Calcium (8.6-10.3) mg/dl Phosphorus (2.5-4.9) mg/dl Magnesium (1.7-2.4) mg/dl Total Bilirubin (0.2-1.0) mg/dl Direct Bilirubin (0-0.2) mg/dl AST (13-39) U/L ALT (7-52) U/L Alkaline Phosphatase (34-104) U/L Troponin I High Sens (0-20) pg/ml C-Reactive Protein (0-0.5) mg/dl B-Natriuretic Peptide (0-100) pg/ml Total Protein (6.0-8.3) gm/dl Albumin (3.4-5.0) gm/dl Globulin (2.5-4.0) gm/dl Albumin/Globulin Ratio (0.9-2) Lipase (11-82) U/L Procalcitonin (0-0.5) ng/ml Urine Color Urine Appearance (Clear) Urine pH (4.5-7.5) Ur Specific Corbett (1.000-1.030) Urine Protein (Negative) Urine Glucose (UA) (Negative) Urine Ketones (Negative) Urine Blood (Negative) Urine Nitrite (Negative) Urine Bilirubin (Negative) Urine Urobilinogen (Negative) Ur Leukocyte Esterase (Negative) Nasal Screen MRSA (PCR) Negative (Negative) Random Vancomycin (10-20) mcg/ml Adenovirus (PCR) (NotDetected) Anaplasma Smear A. phagocytophilum DNA Babesia Smear Babesia microti DNA PCR B. pertussis DNA (PCR) (NotDetected) B.parapertussis DNA PCR (NotDetected) Lyme Disease Screen (Negative) C. pneumoniae DNA (PCR) (NotDetected) Coronavirus OC43 (PCR) (NotDetected) Coronavirus HKU1 (PCR) (NotDetected) Coronavirus 229E (PCR) (NotDetected) SARS-CoV-2 (PCR) (NotDetected) Coronavirus NL63 (PCR) (NotDetected) Ehrlichia DNA (PCR) Human Metapneumovir PCR (NotDetected) Influenza Type A (PCR) (NotDetected) Influenza Type B (PCR) (NotDetected) M. pneumoniae (PCR) (NotDetected) Parainfluenza 1 (PCR) (NotDetected) Parainfluenza 2 (PCR) (NotDetected) Parainfluenza 3 (PCR) (NotDetected) Parainfluenza 4 (PCR) (NotDetected) Q Fever Phase I IgG Ab Q Fever Phase I IgM Ab Q Fever Phase II IgG Ab Q Fever Phase II IgM Ab RSV (PCR) (NotDetected) Entero/Rhino (PCR) (NotDetected) Rickettsia IgG Ab Rickettsia IgM Ab Typhus Fever IgG Ab Typhus Fever IgM Ab 12/18/23 12/18/23 12/18/23 Range/Units 14:33 13:21 08:22 WBC 7.83 (4.8-10.8) K/ul RBC 4.52 L (4.70-6.10) M/uL Hgb 13.7 L (14.0-18.0) g/dl Hct 38.8 L (42.0-52.0) % MCV 85.8 (80.0-100.0) fL MCH 30.3 (25.0-34.0) pg MCHC 35.3 (32.0-36.0) g/dL RDW Std Deviation 39.3 (36.4-46.3) fL RDW Coeff of John 12.5 (11.5-14.5) % Plt Count 225 (130-400) K/uL MPV 9.6 (9.4-12.4) fL Neutrophils % (Manual) % Lymphocytes % (Manual) % Monocytes % (Manual) % Neutrophils # (Manual) (1.40-6.50) K/uL Total Absolute Neuts (1.4-6.5) K/uL Lymphocytes # (Manual) (1.2-3.4) K/uL Total Abs Lymphocytes (1.2-3.4) K/uL Monocytes # (Manual) (0.11-0.59) K/uL RBC Morphology PT (9.0-12.0) Seconds INR (0.9-1.1) APTT (21-31) Seconds PTT Ratio ABG pH (7.35-7.45) ABG pCO2 (35-46) mmHg ABG pO2 (80-95) mmHg ABG HCO3 (19-24) mmol/L ABG O2 Saturation (90-95) % ABG Base Excess (-9-1.8) mEq/L Sha Test (Pos) VBG pH (7.36-7.41) VBG pCO2 (38-50) mmHg VBG pO2 mmHg VBG HCO3 mmol/L VBG O2 Saturation % VBG Base Excess mEq/L Oxygen Given Sodium 136 (136-145) mmol/L Potassium 4.2 (3.5-5.1) mmol/L Chloride 101 (98-107) mmol/L Carbon Dioxide 25 (21-32) mmol/L Anion Gap 10 (3-11) BUN 28 H (6-23) mg/dl Creatinine 1.25 (0.6-1.4) mg/dl Est Cr Clr Drug Dosing 55.8 Est GFR ( Amer) 67.7 ml/min Est GFR (Non-Af Amer) 58.4 ml/min BUN/Creatinine Ratio 22.4 H (10-20) Glucose 262 H (70-99(Fasting)) mg/dl POC Glucose 248 H (70-99) mg/dl Estimat Average Glucose 226 mg/dl Hemoglobin A1c 9.5 H (4.5-5.6) % Lactate (0.4-2.0) mmol/L Calcium 7.8 L (8.6-10.3) mg/dl Phosphorus 3.4 (2.5-4.9) mg/dl Magnesium 2.4 (1.7-2.4) mg/dl Total Bilirubin 0.4 (0.2-1.0) mg/dl Direct Bilirubin 0.1 (0-0.2) mg/dl AST 41 H (13-39) U/L ALT 28 (7-52) U/L Alkaline Phosphatase 35 (34-104) U/L Troponin I High Sens (0-20) pg/ml C-Reactive Protein 4.06 H (0-0.5) mg/dl B-Natriuretic Peptide (0-100) pg/ml Total Protein 6.2 (6.0-8.3) gm/dl Albumin 3.2 L (3.4-5.0) gm/dl Globulin (2.5-4.0) gm/dl Albumin/Globulin Ratio (0.9-2) Lipase (11-82) U/L Procalcitonin (0-0.5) ng/ml Urine Color Urine Appearance (Clear) Urine pH (4.5-7.5) Ur Specific Corbett (1.000-1.030) Urine Protein (Negative) Urine Glucose (UA) (Negative) Urine Ketones (Negative) Urine Blood (Negative) Urine Nitrite (Negative) Urine Bilirubin (Negative) Urine Urobilinogen (Negative) Ur Leukocyte Esterase (Negative) Nasal Screen MRSA (PCR) (Negative) Random Vancomycin 13.6 (10-20) mcg/ml Adenovirus (PCR) (NotDetected) Anaplasma Smear A. phagocytophilum DNA Babesia Smear Babesia microti DNA PCR B. pertussis DNA (PCR) (NotDetected) B.parapertussis DNA PCR (NotDetected) Lyme Disease Screen (Negative) C. pneumoniae DNA (PCR) (NotDetected) Coronavirus OC43 (PCR) (NotDetected) Coronavirus HKU1 (PCR) (NotDetected) Coronavirus 229E (PCR) (NotDetected) SARS-CoV-2 (PCR) (NotDetected) Coronavirus NL63 (PCR) (NotDetected) Ehrlichia DNA (PCR) Human Metapneumovir PCR (NotDetected) Influenza Type A (PCR) (NotDetected) Influenza Type B (PCR) (NotDetected) M. pneumoniae (PCR) (NotDetected) Parainfluenza 1 (PCR) (NotDetected) Parainfluenza 2 (PCR) (NotDetected) Parainfluenza 3 (PCR) (NotDetected) Parainfluenza 4 (PCR) (NotDetected) Q Fever Phase I IgG Ab Q Fever Phase I IgM Ab Q Fever Phase II IgG Ab Q Fever Phase II IgM Ab RSV (PCR) (NotDetected) Entero/Rhino (PCR) (NotDetected) Rickettsia IgG Ab Rickettsia IgM Ab Typhus Fever IgG Ab Typhus Fever IgM Ab 12/17/23 12/17/23 12/17/23 Range/Units 20:32 15:56 11:42 WBC (4.8-10.8) K/ul RBC (4.70-6.10) M/uL Hgb (14.0-18.0) g/dl Hct (42.0-52.0) % MCV (80.0-100.0) fL MCH (25.0-34.0) pg MCHC (32.0-36.0) g/dL RDW Std Deviation (36.4-46.3) fL RDW Coeff of John (11.5-14.5) % Plt Count (130-400) K/uL MPV (9.4-12.4) fL Neutrophils % (Manual) % Lymphocytes % (Manual) % Monocytes % (Manual) % Neutrophils # (Manual) (1.40-6.50) K/uL Total Absolute Neuts (1.4-6.5) K/uL Lymphocytes # (Manual) (1.2-3.4) K/uL Total Abs Lymphocytes (1.2-3.4) K/uL Monocytes # (Manual) (0.11-0.59) K/uL RBC Morphology PT (9.0-12.0) Seconds INR (0.9-1.1) APTT (21-31) Seconds PTT Ratio ABG pH (7.35-7.45) ABG pCO2 (35-46) mmHg ABG pO2 (80-95) mmHg ABG HCO3 (19-24) mmol/L ABG O2 Saturation (90-95) % ABG Base Excess (-9-1.8) mEq/L Sha Test (Pos) VBG pH (7.36-7.41) VBG pCO2 (38-50) mmHg VBG pO2 mmHg VBG HCO3 mmol/L VBG O2 Saturation % VBG Base Excess mEq/L Oxygen Given Sodium (136-145) mmol/L Potassium (3.5-5.1) mmol/L Chloride (98-107) mmol/L Carbon Dioxide (21-32) mmol/L Anion Gap (3-11) BUN (6-23) mg/dl Creatinine (0.6-1.4) mg/dl Est Cr Clr Drug Dosing Est GFR ( Amer) ml/min Est GFR (Non-Af Amer) ml/min BUN/Creatinine Ratio (10-20) Glucose (70-99(Fasting)) mg/dl POC Glucose 301 H* 248 H 272 H (70-99) mg/dl Estimat Average Glucose mg/dl Hemoglobin A1c (4.5-5.6) % Lactate (0.4-2.0) mmol/L Calcium (8.6-10.3) mg/dl Phosphorus (2.5-4.9) mg/dl Magnesium (1.7-2.4) mg/dl Total Bilirubin (0.2-1.0) mg/dl Direct Bilirubin (0-0.2) mg/dl AST (13-39) U/L ALT (7-52) U/L Alkaline Phosphatase (34-104) U/L Troponin I High Sens (0-20) pg/ml C-Reactive Protein (0-0.5) mg/dl B-Natriuretic Peptide (0-100) pg/ml Total Protein (6.0-8.3) gm/dl Albumin (3.4-5.0) gm/dl Globulin (2.5-4.0) gm/dl Albumin/Globulin Ratio (0.9-2) Lipase (11-82) U/L Procalcitonin (0-0.5) ng/ml Urine Color Urine Appearance (Clear) Urine pH (4.5-7.5) Ur Specific Corbett (1.000-1.030) Urine Protein (Negative) Urine Glucose (UA) (Negative) Urine Ketones (Negative) Urine Blood (Negative) Urine Nitrite (Negative) Urine Bilirubin (Negative) Urine Urobilinogen (Negative) Ur Leukocyte Esterase (Negative) Nasal Screen MRSA (PCR) (Negative) Random Vancomycin (10-20) mcg/ml Adenovirus (PCR) (NotDetected) Anaplasma Smear A. phagocytophilum DNA Babesia Smear Babesia microti DNA PCR B. pertussis DNA (PCR) (NotDetected) B.parapertussis DNA PCR (NotDetected) Lyme Disease Screen (Negative) C. pneumoniae DNA (PCR) (NotDetected) Coronavirus OC43 (PCR) (NotDetected) Coronavirus HKU1 (PCR) (NotDetected) Coronavirus 229E (PCR) (NotDetected) SARS-CoV-2 (PCR) (NotDetected) Coronavirus NL63 (PCR) (NotDetected) Ehrlichia DNA (PCR) Human Metapneumovir PCR (NotDetected) Influenza Type A (PCR) (NotDetected) Influenza Type B (PCR) (NotDetected) M. pneumoniae (PCR) (NotDetected) Parainfluenza 1 (PCR) (NotDetected) Parainfluenza 2 (PCR) (NotDetected) Parainfluenza 3 (PCR) (NotDetected) Parainfluenza 4 (PCR) (NotDetected) Q Fever Phase I IgG Ab Q Fever Phase I IgM Ab Q Fever Phase II IgG Ab Q Fever Phase II IgM Ab RSV (PCR) (NotDetected) Entero/Rhino (PCR) (NotDetected) Rickettsia IgG Ab Rickettsia IgM Ab Typhus Fever IgG Ab Typhus Fever IgM Ab 12/17/23 12/17/23 12/17/23 Range/Units 11:06 07:30 07:28 WBC (4.8-10.8) K/ul RBC (4.70-6.10) M/uL Hgb (14.0-18.0) g/dl Hct (42.0-52.0) % MCV (80.0-100.0) fL MCH (25.0-34.0) pg MCHC (32.0-36.0) g/dL RDW Std Deviation (36.4-46.3) fL RDW Coeff of John (11.5-14.5) % Plt Count (130-400) K/uL MPV (9.4-12.4) fL Neutrophils % (Manual) % Lymphocytes % (Manual) % Monocytes % (Manual) % Neutrophils # (Manual) (1.40-6.50) K/uL Total Absolute Neuts (1.4-6.5) K/uL Lymphocytes # (Manual) (1.2-3.4) K/uL Total Abs Lymphocytes (1.2-3.4) K/uL Monocytes # (Manual) (0.11-0.59) K/uL RBC Morphology PT (9.0-12.0) Seconds INR (0.9-1.1) APTT (21-31) Seconds PTT Ratio ABG pH 7.48 H (7.35-7.45) ABG pCO2 30 L (35-46) mmHg ABG pO2 62 L (80-95) mmHg ABG HCO3 22 (19-24) mmol/L ABG O2 Saturation 93.9 (90-95) % ABG Base Excess -0.3 (-9-1.8) mEq/L Sha Test Pos (Pos) VBG pH (7.36-7.41) VBG pCO2 (38-50) mmHg VBG pO2 mmHg VBG HCO3 mmol/L VBG O2 Saturation % VBG Base Excess mEq/L Oxygen Given 10 L Sodium (136-145) mmol/L Potassium (3.5-5.1) mmol/L Chloride (98-107) mmol/L Carbon Dioxide (21-32) mmol/L Anion Gap (3-11) BUN (6-23) mg/dl Creatinine (0.6-1.4) mg/dl Est Cr Clr Drug Dosing Est GFR ( Amer) ml/min Est GFR (Non-Af Amer) ml/min BUN/Creatinine Ratio (10-20) Glucose (70-99(Fasting)) mg/dl POC Glucose 234 H (70-99) mg/dl Estimat Average Glucose mg/dl Hemoglobin A1c (4.5-5.6) % Lactate (0.4-2.0) mmol/L Calcium (8.6-10.3) mg/dl Phosphorus (2.5-4.9) mg/dl Magnesium (1.7-2.4) mg/dl Total Bilirubin (0.2-1.0) mg/dl Direct Bilirubin (0-0.2) mg/dl AST (13-39) U/L ALT (7-52) U/L Alkaline Phosphatase (34-104) U/L Troponin I High Sens (0-20) pg/ml C-Reactive Protein (0-0.5) mg/dl B-Natriuretic Peptide 84 (0-100) pg/ml Total Protein (6.0-8.3) gm/dl Albumin (3.4-5.0) gm/dl Globulin (2.5-4.0) gm/dl Albumin/Globulin Ratio (0.9-2) Lipase (11-82) U/L Procalcitonin (0-0.5) ng/ml Urine Color Urine Appearance (Clear) Urine pH (4.5-7.5) Ur Specific Corbett (1.000-1.030) Urine Protein (Negative) Urine Glucose (UA) (Negative) Urine Ketones (Negative) Urine Blood (Negative) Urine Nitrite (Negative) Urine Bilirubin (Negative) Urine Urobilinogen (Negative) Ur Leukocyte Esterase (Negative) Nasal Screen MRSA (PCR) (Negative) Random Vancomycin (10-20) mcg/ml Adenovirus (PCR) (NotDetected) Anaplasma Smear A. phagocytophilum DNA Babesia Smear Babesia microti DNA PCR B. pertussis DNA (PCR) (NotDetected) B.parapertussis DNA PCR (NotDetected) Lyme Disease Screen (Negative) C. pneumoniae DNA (PCR) (NotDetected) Coronavirus OC43 (PCR) (NotDetected) Coronavirus HKU1 (PCR) (NotDetected) Coronavirus 229E (PCR) (NotDetected) SARS-CoV-2 (PCR) (NotDetected) Coronavirus NL63 (PCR) (NotDetected) Ehrlichia DNA (PCR) Human Metapneumovir PCR (NotDetected) Influenza Type A (PCR) (NotDetected) Influenza Type B (PCR) (NotDetected) M. pneumoniae (PCR) (NotDetected) Parainfluenza 1 (PCR) (NotDetected) Parainfluenza 2 (PCR) (NotDetected) Parainfluenza 3 (PCR) (NotDetected) Parainfluenza 4 (PCR) (NotDetected) Q Fever Phase I IgG Ab Q Fever Phase I IgM Ab Q Fever Phase II IgG Ab Q Fever Phase II IgM Ab RSV (PCR) (NotDetected) Entero/Rhino (PCR) (NotDetected) Rickettsia IgG Ab Rickettsia IgM Ab Typhus Fever IgG Ab Typhus Fever IgM Ab 12/17/23 12/17/23 12/17/23 Range/Units 07:15 03:38 03:33 WBC 2.68 L (4.8-10.8) K/ul RBC 4.31 L (4.70-6.10) M/uL Hgb 12.9 L (14.0-18.0) g/dl Hct 37.9 L (42.0-52.0) % MCV 87.9 (80.0-100.0) fL MCH 29.9 (25.0-34.0) pg MCHC 34.0 (32.0-36.0) g/dL RDW Std Deviation 41.4 (36.4-46.3) fL RDW Coeff of John 12.7 (11.5-14.5) % Plt Count 171 (130-400) K/uL MPV 9.4 (9.4-12.4) fL Neutrophils % (Manual) % Lymphocytes % (Manual) % Monocytes % (Manual) % Neutrophils # (Manual) (1.40-6.50) K/uL Total Absolute Neuts (1.4-6.5) K/uL Lymphocytes # (Manual) (1.2-3.4) K/uL Total Abs Lymphocytes (1.2-3.4) K/uL Monocytes # (Manual) (0.11-0.59) K/uL RBC Morphology PT (9.0-12.0) Seconds INR (0.9-1.1) APTT (21-31) Seconds PTT Ratio ABG pH (7.35-7.45) ABG pCO2 (35-46) mmHg ABG pO2 (80-95) mmHg ABG HCO3 (19-24) mmol/L ABG O2 Saturation (90-95) % ABG Base Excess (-9-1.8) mEq/L Sha Test (Pos) VBG pH (7.36-7.41) VBG pCO2 (38-50) mmHg VBG pO2 mmHg VBG HCO3 mmol/L VBG O2 Saturation % VBG Base Excess mEq/L Oxygen Given Sodium 134 L (136-145) mmol/L Potassium 4.2 (3.5-5.1) mmol/L Chloride 104 (98-107) mmol/L Carbon Dioxide 22 (21-32) mmol/L Anion Gap 8 (3-11) BUN 15 (6-23) mg/dl Creatinine 1.05 (0.6-1.4) mg/dl Est Cr Clr Drug Dosing 72.5 Est GFR ( Amer) 83.5 ml/min Est GFR (Non-Af Amer) 72.1 ml/min BUN/Creatinine Ratio 14.3 (10-20) Glucose 220 H (70-99(Fasting)) mg/dl POC Glucose (70-99) mg/dl Estimat Average Glucose mg/dl Hemoglobin A1c (4.5-5.6) % Lactate (0.4-2.0) mmol/L Calcium 7.5 L (8.6-10.3) mg/dl Phosphorus (2.5-4.9) mg/dl Magnesium (1.7-2.4) mg/dl Total Bilirubin (0.2-1.0) mg/dl Direct Bilirubin (0-0.2) mg/dl AST (13-39) U/L ALT (7-52) U/L Alkaline Phosphatase (34-104) U/L Troponin I High Sens (0-20) pg/ml C-Reactive Protein (0-0.5) mg/dl B-Natriuretic Peptide (0-100) pg/ml Total Protein (6.0-8.3) gm/dl Albumin (3.4-5.0) gm/dl Globulin (2.5-4.0) gm/dl Albumin/Globulin Ratio (0.9-2) Lipase (11-82) U/L Procalcitonin (0-0.5) ng/ml Urine Color Urine Appearance (Clear) Urine pH (4.5-7.5) Ur Specific Corbett (1.000-1.030) Urine Protein (Negative) Urine Glucose (UA) (Negative) Urine Ketones (Negative) Urine Blood (Negative) Urine Nitrite (Negative) Urine Bilirubin (Negative) Urine Urobilinogen (Negative) Ur Leukocyte Esterase (Negative) Nasal Screen MRSA (PCR) (Negative) Random Vancomycin (10-20) mcg/ml Adenovirus (PCR) (NotDetected) Anaplasma Smear See Comment A. phagocytophilum DNA Pending Babesia Smear See Comment Babesia microti DNA PCR Pending B. pertussis DNA (PCR) (NotDetected) B.parapertussis DNA PCR (NotDetected) Lyme Disease Screen Negative (Negative) C. pneumoniae DNA (PCR) (NotDetected) Coronavirus OC43 (PCR) (NotDetected) Coronavirus HKU1 (PCR) (NotDetected) Coronavirus 229E (PCR) (NotDetected) SARS-CoV-2 (PCR) (NotDetected) Coronavirus NL63 (PCR) (NotDetected) Ehrlichia DNA (PCR) Pending Human Metapneumovir PCR (NotDetected) Influenza Type A (PCR) (NotDetected) Influenza Type B (PCR) (NotDetected) M. pneumoniae (PCR) (NotDetected) Parainfluenza 1 (PCR) (NotDetected) Parainfluenza 2 (PCR) (NotDetected) Parainfluenza 3 (PCR) (NotDetected) Parainfluenza 4 (PCR) (NotDetected) Q Fever Phase I IgG Ab Pending Q Fever Phase I IgM Ab Pending Q Fever Phase II IgG Ab Pending Q Fever Phase II IgM Ab Pending RSV (PCR) (NotDetected) Entero/Rhino (PCR) (NotDetected) Rickettsia IgG Ab Pending Rickettsia IgM Ab Pending Typhus Fever IgG Ab Pending Typhus Fever IgM Ab Pending 12/16/23 12/16/23 12/16/23 Range/Units 21:57 16:02 10:13 WBC (4.8-10.8) K/ul RBC (4.70-6.10) M/uL Hgb (14.0-18.0) g/dl Hct (42.0-52.0) % MCV (80.0-100.0) fL MCH (25.0-34.0) pg MCHC (32.0-36.0) g/dL RDW Std Deviation (36.4-46.3) fL RDW Coeff of John (11.5-14.5) % Plt Count (130-400) K/uL MPV (9.4-12.4) fL Neutrophils % (Manual) % Lymphocytes % (Manual) % Monocytes % (Manual) % Neutrophils # (Manual) (1.40-6.50) K/uL Total Absolute Neuts (1.4-6.5) K/uL Lymphocytes # (Manual) (1.2-3.4) K/uL Total Abs Lymphocytes (1.2-3.4) K/uL Monocytes # (Manual) (0.11-0.59) K/uL RBC Morphology PT (9.0-12.0) Seconds INR (0.9-1.1) APTT (21-31) Seconds PTT Ratio ABG pH (7.35-7.45) ABG pCO2 (35-46) mmHg ABG pO2 (80-95) mmHg ABG HCO3 (19-24) mmol/L ABG O2 Saturation (90-95) % ABG Base Excess (-9-1.8) mEq/L Sha Test (Pos) VBG pH (7.36-7.41) VBG pCO2 (38-50) mmHg VBG pO2 mmHg VBG HCO3 mmol/L VBG O2 Saturation % VBG Base Excess mEq/L Oxygen Given Sodium (136-145) mmol/L Potassium (3.5-5.1) mmol/L Chloride (98-107) mmol/L Carbon Dioxide (21-32) mmol/L Anion Gap (3-11) BUN (6-23) mg/dl Creatinine (0.6-1.4) mg/dl Est Cr Clr Drug Dosing Est GFR ( Amer) ml/min Est GFR (Non-Af Amer) ml/min BUN/Creatinine Ratio (10-20) Glucose (70-99(Fasting)) mg/dl POC Glucose 209 H 191 H (70-99) mg/dl Estimat Average Glucose mg/dl Hemoglobin A1c (4.5-5.6) % Lactate 1.1 (0.4-2.0) mmol/L Calcium (8.6-10.3) mg/dl Phosphorus (2.5-4.9) mg/dl Magnesium (1.7-2.4) mg/dl Total Bilirubin (0.2-1.0) mg/dl Direct Bilirubin (0-0.2) mg/dl AST (13-39) U/L ALT (7-52) U/L Alkaline Phosphatase (34-104) U/L Troponin I High Sens (0-20) pg/ml C-Reactive Protein (0-0.5) mg/dl B-Natriuretic Peptide (0-100) pg/ml Total Protein (6.0-8.3) gm/dl Albumin (3.4-5.0) gm/dl Globulin (2.5-4.0) gm/dl Albumin/Globulin Ratio (0.9-2) Lipase (11-82) U/L Procalcitonin (0-0.5) ng/ml Urine Color Urine Appearance (Clear) Urine pH (4.5-7.5) Ur Specific Corbett (1.000-1.030) Urine Protein (Negative) Urine Glucose (UA) (Negative) Urine Ketones (Negative) Urine Blood (Negative) Urine Nitrite (Negative) Urine Bilirubin (Negative) Urine Urobilinogen (Negative) Ur Leukocyte Esterase (Negative) Nasal Screen MRSA (PCR) (Negative) Random Vancomycin (10-20) mcg/ml Adenovirus (PCR) (NotDetected) Anaplasma Smear A. phagocytophilum DNA Babesia Smear Babesia microti DNA PCR B. pertussis DNA (PCR) (NotDetected) B.parapertussis DNA PCR (NotDetected) Lyme Disease Screen (Negative) C. pneumoniae DNA (PCR) (NotDetected) Coronavirus OC43 (PCR) (NotDetected) Coronavirus HKU1 (PCR) (NotDetected) Coronavirus 229E (PCR) (NotDetected) SARS-CoV-2 (PCR) (NotDetected) Coronavirus NL63 (PCR) (NotDetected) Ehrlichia DNA (PCR) Human Metapneumovir PCR (NotDetected) Influenza Type A (PCR) (NotDetected) Influenza Type B (PCR) (NotDetected) M. pneumoniae (PCR) (NotDetected) Parainfluenza 1 (PCR) (NotDetected) Parainfluenza 2 (PCR) (NotDetected) Parainfluenza 3 (PCR) (NotDetected) Parainfluenza 4 (PCR) (NotDetected) Q Fever Phase I IgG Ab Q Fever Phase I IgM Ab Q Fever Phase II IgG Ab Q Fever Phase II IgM Ab RSV (PCR) (NotDetected) Entero/Rhino (PCR) (NotDetected) Rickettsia IgG Ab Rickettsia IgM Ab Typhus Fever IgG Ab Typhus Fever IgM Ab 12/16/23 12/16/23 12/16/23 Range/Units 09:33 09:04 07:39 WBC (4.8-10.8) K/ul RBC (4.70-6.10) M/uL Hgb (14.0-18.0) g/dl Hct (42.0-52.0) % MCV (80.0-100.0) fL MCH (25.0-34.0) pg MCHC (32.0-36.0) g/dL RDW Std Deviation (36.4-46.3) fL RDW Coeff of John (11.5-14.5) % Plt Count (130-400) K/uL MPV (9.4-12.4) fL Neutrophils % (Manual) % Lymphocytes % (Manual) % Monocytes % (Manual) % Neutrophils # (Manual) (1.40-6.50) K/uL Total Absolute Neuts (1.4-6.5) K/uL Lymphocytes # (Manual) (1.2-3.4) K/uL Total Abs Lymphocytes (1.2-3.4) K/uL Monocytes # (Manual) (0.11-0.59) K/uL RBC Morphology PT (9.0-12.0) Seconds INR (0.9-1.1) APTT (21-31) Seconds PTT Ratio ABG pH (7.35-7.45) ABG pCO2 (35-46) mmHg ABG pO2 (80-95) mmHg ABG HCO3 (19-24) mmol/L ABG O2 Saturation (90-95) % ABG Base Excess (-9-1.8) mEq/L Sha Test (Pos) VBG pH (7.36-7.41) VBG pCO2 (38-50) mmHg VBG pO2 mmHg VBG HCO3 mmol/L VBG O2 Saturation % VBG Base Excess mEq/L Oxygen Given Sodium (136-145) mmol/L Potassium (3.5-5.1) mmol/L Chloride (98-107) mmol/L Carbon Dioxide (21-32) mmol/L Anion Gap (3-11) BUN (6-23) mg/dl Creatinine (0.6-1.4) mg/dl Est Cr Clr Drug Dosing Est GFR ( Amer) ml/min Est GFR (Non-Af Amer) ml/min BUN/Creatinine Ratio (10-20) Glucose (70-99(Fasting)) mg/dl POC Glucose (70-99) mg/dl Estimat Average Glucose mg/dl Hemoglobin A1c (4.5-5.6) % Lactate 3.4 H* (0.4-2.0) mmol/L Calcium (8.6-10.3) mg/dl Phosphorus (2.5-4.9) mg/dl Magnesium (1.7-2.4) mg/dl Total Bilirubin (0.2-1.0) mg/dl Direct Bilirubin (0-0.2) mg/dl AST (13-39) U/L ALT (7-52) U/L Alkaline Phosphatase (34-104) U/L Troponin I High Sens (0-20) pg/ml C-Reactive Protein (0-0.5) mg/dl B-Natriuretic Peptide (0-100) pg/ml Total Protein (6.0-8.3) gm/dl Albumin (3.4-5.0) gm/dl Globulin (2.5-4.0) gm/dl Albumin/Globulin Ratio (0.9-2) Lipase (11-82) U/L Procalcitonin (0-0.5) ng/ml Urine Color Yellow Urine Appearance Clear (Clear) Urine pH 5.0 (4.5-7.5) Ur Specific Corbett 1.031 H (1.000-1.030) Urine Protein Negative (Negative) Urine Glucose (UA) Negative (Negative) Urine Ketones Trace H (Negative) Urine Blood Negative (Negative) Urine Nitrite Negative (Negative) Urine Bilirubin Negative (Negative) Urine Urobilinogen Negative (Negative) Ur Leukocyte Esterase Negative (Negative) Nasal Screen MRSA (PCR) (Negative) Random Vancomycin (10-20) mcg/ml Adenovirus (PCR) Not Detected (NotDetected) Anaplasma Smear A. phagocytophilum DNA Babesia Smear Babesia microti DNA PCR B. pertussis DNA (PCR) Not Detected (NotDetected) B.parapertussis DNA PCR Not Detected (NotDetected) Lyme Disease Screen (Negative) C. pneumoniae DNA (PCR) Not Detected (NotDetected) Coronavirus OC43 (PCR) Not Detected (NotDetected) Coronavirus HKU1 (PCR) Not Detected (NotDetected) Coronavirus 229E (PCR) Not Detected (NotDetected) SARS-CoV-2 (PCR) DETECTED A (NotDetected) Coronavirus NL63 (PCR) Not Detected (NotDetected) Ehrlichia DNA (PCR) Human Metapneumovir PCR Not Detected (NotDetected) Influenza Type A (PCR) Not Detected (NotDetected) Influenza Type B (PCR) Not Detected (NotDetected) M. pneumoniae (PCR) Not Detected (NotDetected) Parainfluenza 1 (PCR) Not Detected (NotDetected) Parainfluenza 2 (PCR) Not Detected (NotDetected) Parainfluenza 3 (PCR) Not Detected (NotDetected) Parainfluenza 4 (PCR) Not Detected (NotDetected) Q Fever Phase I IgG Ab Q Fever Phase I IgM Ab Q Fever Phase II IgG Ab Q Fever Phase II IgM Ab RSV (PCR) Not Detected (NotDetected) Entero/Rhino (PCR) Not Detected (NotDetected) Rickettsia IgG Ab Rickettsia IgM Ab Typhus Fever IgG Ab Typhus Fever IgM Ab 12/16/23 12/16/23 Range/Units 07:05 06:00 WBC 6.64 (4.8-10.8) K/ul RBC 4.58 L (4.70-6.10) M/uL Hgb 13.9 L (14.0-18.0) g/dl Hct 39.8 L (42.0-52.0) % MCV 86.9 (80.0-100.0) fL MCH 30.3 (25.0-34.0) pg MCHC 34.9 (32.0-36.0) g/dL RDW Std Deviation 41.1 (36.4-46.3) fL RDW Coeff of John 13.0 (11.5-14.5) % Plt Count 189 (130-400) K/uL MPV 9.7 (9.4-12.4) fL Neutrophils % (Manual) 84 % Lymphocytes % (Manual) 10 % Monocytes % (Manual) 6 % Neutrophils # (Manual) 5.58 (1.40-6.50) K/uL Total Absolute Neuts 5.58 (1.4-6.5) K/uL Lymphocytes # (Manual) 0.66 L (1.2-3.4) K/uL Total Abs Lymphocytes 0.66 L (1.2-3.4) K/uL Monocytes # (Manual) 0.40 (0.11-0.59) K/uL RBC Morphology Unremarkable PT 10.5 (9.0-12.0) Seconds INR 1.0 (0.9-1.1) APTT (21-31) Seconds PTT Ratio ABG pH (7.35-7.45) ABG pCO2 (35-46) mmHg ABG pO2 (80-95) mmHg ABG HCO3 (19-24) mmol/L ABG O2 Saturation (90-95) % ABG Base Excess (-9-1.8) mEq/L Sha Test (Pos) VBG pH (7.36-7.41) VBG pCO2 (38-50) mmHg VBG pO2 mmHg VBG HCO3 mmol/L VBG O2 Saturation % VBG Base Excess mEq/L Oxygen Given Sodium 131 L (136-145) mmol/L Potassium 4.1 (3.5-5.1) mmol/L Chloride 101 (98-107) mmol/L Carbon Dioxide 22 (21-32) mmol/L Anion Gap 8 (3-11) BUN 18 (6-23) mg/dl Creatinine 1.01 (0.6-1.4) mg/dl Est Cr Clr Drug Dosing Not Reportable Est GFR ( Amer) 87.6 ml/min Est GFR (Non-Af Amer) 75.5 ml/min BUN/Creatinine Ratio 17.8 (10-20) Glucose 143 H (70-99(Fasting)) mg/dl POC Glucose (70-99) mg/dl Estimat Average Glucose mg/dl Hemoglobin A1c (4.5-5.6) % Lactate (0.4-2.0) mmol/L Calcium 8.1 L (8.6-10.3) mg/dl Phosphorus (2.5-4.9) mg/dl Magnesium 1.9 (1.7-2.4) mg/dl Total Bilirubin 0.4 (0.2-1.0) mg/dl Direct Bilirubin (0-0.2) mg/dl AST 36 (13-39) U/L ALT 28 (7-52) U/L Alkaline Phosphatase 36 (34-104) U/L Troponin I High Sens (0-20) pg/ml C-Reactive Protein 15.49 H (0-0.5) mg/dl B-Natriuretic Peptide (0-100) pg/ml Total Protein 6.4 (6.0-8.3) gm/dl Albumin 3.3 L (3.4-5.0) gm/dl Globulin 3.1 (2.5-4.0) gm/dl Albumin/Globulin Ratio 1.1 (0.9-2) Lipase 22 (11-82) U/L Procalcitonin 0.10 (0-0.5) ng/ml Urine Color Urine Appearance (Clear) Urine pH (4.5-7.5) Ur Specific Corbett (1.000-1.030) Urine Protein (Negative) Urine Glucose (UA) (Negative) Urine Ketones (Negative) Urine Blood (Negative) Urine Nitrite (Negative) Urine Bilirubin (Negative) Urine Urobilinogen (Negative) Ur Leukocyte Esterase (Negative) Nasal Screen MRSA (PCR) (Negative) Random Vancomycin (10-20) mcg/ml Adenovirus (PCR) (NotDetected) Anaplasma Smear A. phagocytophilum DNA Babesia Smear Babesia microti DNA PCR B. pertussis DNA (PCR) (NotDetected) B.parapertussis DNA PCR (NotDetected) Lyme Disease Screen (Negative) C. pneumoniae DNA (PCR) (NotDetected) Coronavirus OC43 (PCR) (NotDetected) Coronavirus HKU1 (PCR) (NotDetected) Coronavirus 229E (PCR) (NotDetected) SARS-CoV-2 (PCR) (NotDetected) Coronavirus NL63 (PCR) (NotDetected) Ehrlichia DNA (PCR) Human Metapneumovir PCR (NotDetected) Influenza Type A (PCR) (NotDetected) Influenza Type B (PCR) (NotDetected) M. pneumoniae (PCR) (NotDetected) Parainfluenza 1 (PCR) (NotDetected) Parainfluenza 2 (PCR) (NotDetected) Parainfluenza 3 (PCR) (NotDetected) Parainfluenza 4 (PCR) (NotDetected) Q Fever Phase I IgG Ab Q Fever Phase I IgM Ab Q Fever Phase II IgG Ab Q Fever Phase II IgM Ab RSV (PCR) (NotDetected) Entero/Rhino (PCR) (NotDetected) Rickettsia IgG Ab Rickettsia IgM Ab Typhus Fever IgG Ab Typhus Fever IgM Ab Diagnostic Findings Orbit X-Ray 12/16/23 00:00 BONY ORBITS 3 VIEWS CLINICAL HISTORY: MRI clearance. FINDINGS: 3 views of the bony orbits are obtained. No prior studies are available for comparison at the time of dictation. There is no radiode nse/metallic foreign body seen in the region of the bony orbits. The bony orbits are intact as imaged. The visualized paranasal sinuses and the mastoid air cells appear clear. The imaged calvarium appears intact. IMPRESSION: There is no radiodense/metallic foreign body seen in the region of the bony orbits. ACT 112: Negative or not required by law. Electronically signed by: Ermias Pena M.D. 12/16/2023 2:08 PM Abdomen/Pelvis CT 12/16/23 07:31 CT SCAN OF THE ABDOMEN AND PELVIS WITH IV CONTRAST CLINICAL HISTORY: Right upper quadrant abdominal pain. COMPARISON STUDY: Chest CT dated 02/21/2021. TECHNIQUE: Following the IV administration of 118 cc of Optiray 320, CT scan of the abdomen and pelvis is performed from the lung bases to the proximal femora. Images are reviewed in the axial, sagittal, and coronal planes. IV contrast was administered without complication. A dose lowering technique was utilized adhering to the principles of ALARA. The examination is degraded by streak artifact from the right arm which could not be elevated above the abdomen. There is also motion artifact. CT DOSE: 2718.69 mGy.cm FINDINGS: Lung bases: The heart is enlarged and without pericardial effusion. The coronary arteries are densely calcified. Airspace consolidation is seen at both lung bases with foci of architectural distortion. No pleural effusion is identified. There is a [id number] hiatal hernia. Liver: The contrast-enhanced liver is normal in size and contour. Attenuation is diminished suggesting steatosis. There is no intrahepatic biliary ductal dilatation. The hepatic veins and portal veins are patent. Gallbladder: Unremarkable. Spleen: Normal in size and attenuation. Pancreas: Unremarkable. Adrenal glands: Unremarkable. Kidneys: The contrast enhanced kidneys are normal in size and without hydronephrosis. The kidneys enhance symmetrically. Abdominal vasculature: The abdominal aorta is normal in course and caliber noting mild to moderate atherosclerotic calcification. Bowel: There is [id number] sigmoid diverticulosis without CT evidence of acute diverticulitis. No bowel obstruction is seen. The appendix is well- visualized and normal. Peritoneum: There is no intraperitoneal free air or abdominal ascites. There is a fat-containing umbilical hernia. Lymphadenopathy: None. Pelvic viscera: The prostate gland is enlarged and heterogeneous. The bladder wall is thickened/trabeculated indicating chronic outlet obstruction. There are small bilateral fat-containing groin hernias. Skeletal structures: The skeletal structures are osteopenic. There is mild to moderate lumbosacral spondylosis. No lytic or blastic lesions are seen. IMPRESSION: 1. No acute infectious or inflammatory findings are identified in the abdomen or pelvis. 2. Multifocal airspace consolidation is seen at both lung bases with foci of architectural distortion. This was not seen on 02/21/2021 and favors multifocal pneumonia, possibly viral. Clinical correlation will be essential and radiographic follow-up to resolution is recommended. 3. Cardiomegaly. 4. Sigmoid diverticulosis without CT evidence of acute diverticulitis. 5. Additional findings as above. ACT 112: Negative or not required by law. Electronically signed by: Ermias Pena M.D. 12/16/2023 9:[address] 12/16/23 07:31 CT VENOGRAM OF THE BRAIN COMBO CLINICAL HISTORY: Headache. Vomiting. Blurry vision. COMPARISON STUDY: CT of the brain dated 12/14/2023 TECHNIQUE: Unenhanced axial CT scan of the brain is performed from the vertex to the skull base. Subsequently, CT venogram of the brain is performed following administration of 118 cc of Optiray 320. Images are reviewed in the axial, sagittal, and coronal planes. 3-D IMAGES are created and assessed. IV contrast was administered without complication. A dose lowering technique was utilized adhering to the principles of ALARA. FINDINGS: Brain parenchyma: There is minimal microangiopathic change. There is no hemorrhage, mass effect, or evidence of acute territorial ischemia by CT criteria. Elam-white matter differentiation is preserved. Mineralization is noted in the basal ganglia. There is no evidence of enhancing lesion of the venogram phase images. No extra-axial fluid collection is seen. Ventricles, sulci, cisterns: Normal in configuration. Intracranial vasculature: The intracranial arteries are patent as visualized. Atherosclerotic calcification is noted in the cavernous carotid arteries.. Dural sinuses: The superior sagittal sinus is patent, as are the transverse and sigmoid sinuses. Imaged portions of the jugular veins are patent bilaterally. The right jugular vein is larger than the left. The inferior sagittal sinus and the straight sinus are patent. There is no evidence of sinus thrombosis. Calvarium: Unremarkable. Sinuses and mastoids: The paranasal sinuses are clear. There is evidence of previous left mastoid surgery. The right mastoid air cells are well pneumatized. Orbits: The bony orbits are grossly intact. IMPRESSION: 1. There is no hemorrhage, mass effect, or evidence of acute territorial ischemia by CT criteria. 2. Normal CT venogram of the brain. ACT 112: Negative or not required by law. Electronically signed by: Ermias Pena M.D. 12/16/2023 8:54 AM Chest X-Ray 12/16/23 08:45 SINGLE VIEW CHEST CLINICAL HISTORY: Hypoxia FINDINGS: An AP, portable, upright chest radiograph is compared to study dated 12/09/2023 and correlated with chest CT dated 02/21/20[address] as well as abdominal CT performed the same day 12/16/2023. The heart is enlarged. There is pulmonary vascular congestion. Multifocal airspace consolidation is seen throughout both lungs. The a calcified granuloma is noted at the right apex. No large pleural effusion or pneumothorax is seen. The skeletal structures are osteopenic. The bony thorax is grossly intact. IMPRESSION: 1. Cardiomegaly with pulmonary vascular congestion. 2. Extensive bilateral airspace consolidation likely represents multifocal pneumonia when correlated with today's abdominal CT. A component of superimposed pulmonary edema is not excluded. This is new from 12/09/2023. Clinical correlation will be essential and radiographic follow-up to resolution is recommended. ACT 112: Negative or not required by law. Electronically signed by: Ermias Pena M.D. 12/16/2023 9:[address] 12/17/23 10:45 CT SCAN OF THE CHEST WITHOUT IV CONTRAST CLINICAL HISTORY: Respiratory failure. Covid. COMPARISON STUDY: Chest x-ray dated 12/16/2023. Chest CT dated 02/21/2021. Abdominal CT dated 12/16/2023. TECHNIQUE: CT scan of the thorax was performed from the thoracic inlet to the upper abdomen. Images are reviewed in the axial, sagittal, and coronal planes. IV contrast was not administered for this examination as per the referring cl inician. A dose lowering technique was utilized adhering to the principles of ALARA. CT DOSE: 377.42 mGy.cm FINDINGS: Thyroid: Mildly enlarged and heterogeneous. A 2.1 cm nodule which contains tiny calcifications. Thoracic aorta: There is mild atherosclerotic calcification of the thoracic aorta, which is normal in caliber and demonstrates standard 3-vessel arch anatomy. Heart: The heart is mildly enlarged and without pericardial effusion. The coronary arteries are densely calcified. Lungs and pleural spaces: Evaluation of the lung parenchyma is significantly degraded by motion artifact. There is extensive multifocal groundglass consolidation seen throughout both lungs with a subpleural and lower lobe predominance. There is mild bronchiectasis in the lower lobes with foci of ar chitectural distortion. The trachea and central airways are clear. There are trace pleural effusions. There are scattered calcified granulomas. Mediastinum: There are calcified mediastinal lymph nodes. A mildly enlarged subcarinal node measures 14 mm in short axis. Anai: There are calcified right hilar nodes. Note that the anai are not well assessed without IV contrast. Axillae: There is no axillary lymphadenopathy. Upper abdomen: There is a small to moderate hiatal hernia. Partially visualized upper abdominal viscera is otherwise within normal limits. Skeletal structures: The skeletal structures are osteopenic. Degenerative change is noted in the shoulders and spine. No lytic or blastic bony lesions are seen. IMPRESSION: 1. Again seen is extensive/diffuse multifocal groundglass consolidation as detailed above. This would be consistent with the reported history of a viral pneumonia and has not appreciably changed from yesterday's abdominal CT. Clinical correlation will be required and radiographic follow-up to resolution is recommended. 2. Mild cardiomegaly and trace pleural effusions. 3. There is an indeterminate 2.1 cm left lobe thyroid nodule which contains tiny calcifications. A nonemergent/outpatient thyroid ultrasound is recommended in follow-up. 4. Coronary artery atherosclerosis. 5. Additional findings as above. ACT 112: Negative or not required by law. Electronically signed by: Ermias Pena M.D. 12/17/2023 5:46 PM Chest X-Ray 12/19/23 02:10 XR chest 1V portable HISTORY: 68 years-old Male low o2 acute hypoxia COMPARISON: Chest CT 12/17/2023, chest radiograph 12/16/2023. TECHNIQUE: AP view of the chest FINDINGS: Cardiac silhouette is enlarged. Bilateral mixed interstitial and alveolar opac ities, most pronounced in the lung bases and right upper lung. Calcified mediastinal and hilar lymph nodes. No pneumothorax. Trace pleural effusions. The bones appear grossly intact. IMPRESSION: 1. Unchanged appearance of the multifocal pneumonia. 2. Trace pleural effusions. 3. Prior granulomatous disease. ACT 112: Negative or not required by law. The above report was generated using voice recognition software. It may contain grammatical, syntax or spelling errors. Electronically signed by: Bobby Uriarte M.D. 12/19/2023 7:24 AM PG Care Time/CCT Total # of Minutes Spent Total Time Spent with Patient: Total time spent is greater than 50% in coordination of care (as documented) at patient's floor/unit and/or counseling patient: I spent 105 minutes overall addressing this case: 10 min in medical data review/discussion with referring provider(s) and/or preparation for the visit 15 min in direct interaction with the patient/exam 45min in Advance Care Planning/Goals of Care discussions as detailed above in note (must be >16min) 15 min in subsequent review and synthesis of assessment and plan 20 min communicating with other providers regarding the patient's case: primary team, nursing, nutrition Advanced Care Planning 30830 Advanced Care Planning 30 Min 34625 Advanced Care Planning Additional 30 [place] [address] IN/OBS CONSULT LVL 4,60M (25 - SIGNIFICANT, SEPARATELY IDENTIFIABLE ) Patient Type New Medical Decision Making High Complexity Diagnoses Headache R51.9 At risk for dehydration due to poor fluid intake Z91.89 Weakness generalized R53.1 Malaise and fatigue R53.81; R53.83 Advanced care planning/counseling discussion Z71.89 Cough R05.1 Cough type: acute Palliative care by specialist Z51.5 Additional Codes Advanced Care Planning - 49877 Advanced Care Planning 30 Min: 10092 Advanced Care Planning 30 Min ([id number]) Advanced Care Planning - 11119 Advanced Care Planning Additional 30 Min: 37648 Advanced Care Planning Additional 30 Min ([id number])
--- NOTE | 2023-12-20 15:24 | Electrocardiogram Report ---
Test Reason : Blood Pressure : */* mmHG Vent. Rate : 66 BPM Atrial Rate : 66 BPM P-R Int : 148 ms QRS Dur : 96 ms QT Int : 472 ms P-R-T Axes : 51 -8 26 degrees QTcB Int : 494 ms Normal sinus rhythm Moderate voltage criteria for LVH, may be normal variant Prolonged QT Abnormal ECG When compared with ECG of 16-Dec-2023 13:37, Premature supraventricular complexes are no longer Present QT has lengthened Confirmed by Jakob Goff ([id number]) on 12/20/2023 3:23:21 PM Referred By: REFERRED SELF Confirmed By: Jakob Goff
--- NOTE | 2023-12-20 16:25 | Hospitalist Progress Note ---
Date of Service December 20, 2023 Assessment & Plan (1) Pneumonia: (2) COVID-19: (3) Acute respiratory failure with hypoxia: (4) Headache: (5) Acute hyponatremia: (6) HTN (hypertension): (7) Diabetes mellitus, type II: (8) CKD (chronic kidney disease), stage III: (9) History of chronic cough: (10) History of granulomatous disease: Plan: 68 year old male with PMH HTN, dyslipidemia, DM II, CKD III, chronic cough, granulomatous disease, history of left mastoidectomy, GERD, history headache in remote past presented to ER with c/o MELENDEZ x 1 week and shortness of breath. Patient found to be acutely hypoxic and COVID positive. LP pursued in ED, however, failed. Patient empirically treated for meningitis. Patient presented to ED on 12/09/23, found to be +COVID, CXR without infiltrate and Rx Medrol dose pack and pt decided against Paxlovid. Recurrent ER visit on 12/14/23 for worsening MELENDEZ, photophobia with CT head negative for acute intracranial abnormality. Pulm consulted due to multifocal pna/covid/increased O2 requirement. Prior attending discussed GoC w/ pt and family on 12/17, pt supposedly wanted to go comfort care measures but agreed to try 1 more day and see how he does. On 12/18, pt wished to continue care. 12/19, pt declined meds and stated he wants comfort measures. His 5 children were at bedside, they were all in agreement w/ pt's wish of comfort measures. Explained to them the situation and stated that though the cure/improvement in lung function can't be guaranteed, but patient is not approaching immediately and it would be too early to think about comfort measures. Answered all their questions, finally requested palliative care consult and patient agreed to continue w/ current care excluding mri and cpap/bpap. #Acute hypoxic respiratory failure, multifactorial, c/f ARDS? #COVID pneumonia, ?superimposed bacterial pneumonia COVID +, diffuse multifocal infiltrates on chest imaging. Low suspicion for HFpEF contributing--diastolic dysfunction noted, BNP WNL, low H2FPEF score (28.2%), no response to lasix No leukocytosis, CRP: 15, procalcitonin: 0.10 Lactate: 3.4-->1.1 Biofire respiratory panel +COVID-[address] abd/pelvis: No acute infectious or inflammatory findings are identified in the abdomen or pelvis. Multifocal airspace consolidation is seen at both lung bases with foci of architectural distortion. Cardiomegaly. Sigmoid diverticulosis without CT evidence of acute diverticulitis. CXR: acute onset bilateral infiltrates L Continue empiric abx with CTX and Unasyn -Consider deescalation to PO when stable for dipo Continue Airborne isolation Supplemental oxygen, wean O2 >92% Incentive spirometry, flutter valve Decadron 10mg q 6h (mostly for empiric meningitis coverage, however hopefully will aid in resp status) --> c/w 10 mg daily from kirti , to complete 10 days. repeat CBC, BMP in am Hypertonic nebs, CPAP/BPAP--patient refused Continue mucolytic, and pulm toilet Pleural effusions on CXR-- gentle diuresis for 3 days. #Acute headache #History of Migraine ER physician attempted LP however was unsuccessful CT venogram: There is no hemorrhage, mass effect, or evidence of acute territorial ischemia by CT criteria. Normal CT venogram of the brain. Patient reports marginal improvement, but worsened 2/2 coughing MRI brain ordered, awaiting radiology approval given hx of surgical intervention (mastoidectomy 2017) Neurology consulted, reviwed recs: -cannot obtain lp 2/2 patient declines -500mg depakote BID for 2 weeks -Plan for steroid taper contingent on above resp recovery -s/p imitrex and IV depakote: most improvement with prn Fioricet Very low suspicion of meningitis as initially concerned: no WBC, no nuchal rigidity, headache same character as usual headaches, no improvement with abx however improved with Fioricet, therefore discontinued vancomycin and consider step down in abx for ?superimposed pneumonia rather than LINE ANALYST infection Patient declines MRI or other imaging/procedures #Uncontrolled diabetes type II hold home glipizide and linagliptin Elevated blood sugars noted while on decadron c/w SSI. Continue to encourage insulin compliance while admitted Will plan for DM educator contingent on course #Cough Variant Asthma #Granulomatous disease #s/p left mastoidectomy 2016 #Civil Project Engineer's lung CT chestfrom 02/2021 report only shows calcified mediastinal LNs, biapical scarring, right lung granuloma 1 cm. Mild haziness at bases bilaterally. No focal consolidations. s/p allergy panel IgE negative, follows Dr. Valle 2/2 trace granulomatous disease PFT 2021 normal nebs prn Continue with Benzonatate 200 mg Q 12 hx of [facility] allergy panel, IgE Negative continue Protonix for chronic cough #Acute Hyponatremia *improving Na: 136 corrected for hyperglycemia s/p IVF Encourage PO Trend BMP qd #HTN Continue losartan #CKDIII Cr: 1.0. Baseline Cr: 1.2-1.4 Monitor renal functions, avoid nephrotoxic agents when possible DVT Prophylaxis Lovenox SQ PCU Full Code Follows with Dr Dawson for routine care Total time spent 75 minutes. Admission and Anticipated Discharge Date Admission Date: December 16, 2023 Subjective Patient was seen and examined at bedside. Patient was lying in bed, on 8 L oxygen via nasal cannula, NAD. Patient's children were at bedside, patient apparently stated that he would like to go comfort care measures throughout and declined medication, discussed with the patient and patient's family in detail the patient's current status and answered all the questions, they decided to go with conservative management and declined MRI brain ordered for his headache and declined BiPAP/CPAP. Patient reports headache relieved with pain medication but bothering him necessitating freq pain meds. We talked about MRI head, he stated he will think about it but not for now. Physical Exam Physical Exam: General: no acute distress, non-toxic appearance, on 8 L HFNC O2 Head: normocephalic, atraumatic Eyes: PERRL, EOM's intact, conjunctiva non-injected, anicteric ENT: normal inspection external ears, nose, mucous membranes moist Neck: supple, trachea midline, non-tender to palpation, ROM intact Lungs: no respiratory distress on current 8L O2, +rales bilateral lung hutchins, no wheezing noted CV: RRR, no murmur, no pretibial edema Abd: normal BS, soft, non-tender to palpation Ext: no cyanosis, no calf tenderness Neuro: A&O x 3, no focal deficits noted, normal affect Skin: warm, dry Results & Data Results & Data Vital Signs (Past 12 Hours) Vital Signs Temp Pulse Resp BP Pulse Ox O2 Del Method O2 Flow Rate 12/20/23 11:44 36.8 C 87 16 160/86 H 94 Nasal Cannula 6 12/20/23 09:21 High Flow Nasal Cannula 8 12/20/23 08:00 36.7 C 70 16 154/71 H 99 Nasal Cannula 6 (4) Headache Headache chronicity pattern: acute headache Headache type: unspecified Intractability: intractable Qualified Code(s): R51.9 - Headache, unspecified
[2023-12-20] MEDS: FLUTICASONE PROPIONATE NA SPR 16 GM BTL SCH (20:56)
[2023-12-20] MEDS: INSULIN ASPART PER UNIT CHARGE SC SCH (22:25)
[2023-12-20] MEDS: LANTUS PER UNIT CHARGE SQ SCH (22:28)
[2023-12-21] MEDS: KETOROLAC TROMETHAMINE 15 MG/ML VIAL IV PRN (01:15)
[2023-12-21 07:52] LABS: Hematocrit (blood only) 39.9 % (42.0-52.0); Hemoglobin 13.7 g/dl (14.0-18.0); Mean Corpuscular Hemoglobin 29.9 pg (25.0-34.0); Mean Corpuscular Hgb Conc 34.3 g/dL (32.0-36.0); Mean Corpuscular Volume 87.1 fL (80.0-100.0); Mean Platelet Volume 9.5 fL (9.4-12.4); Platelet Count 246 K/uL (130-400); RDW Coefficient of Variation 12.4 % (11.5-14.5); RDW Standard Deviation 39.7 fL (36.4-46.3); Red Blood Count 4.58 M/uL (4.70-6.10); White Blood Count 8.41 K/ul (4.8-10.8)
[2023-12-21 07:59] LABS: Calcium 7.8 mg/dl (8.6-10.3); Magnesium 3.1 mg/dl (1.7-2.4); Potassium 3.6 mmol/L (3.5-5.1)
[2023-12-21 08:06] LABS: BUN Creatinine Ratio 27.6 (10-20); Creatinine Clr Calc Pharmacy 60.1 ml/min; Phosphorus 2.7 mg/dl (2.5-4.9)
[2023-12-21 08:17] VITALS: TEMP 97.9
--- NOTE | 2023-12-21 08:42 | Pulmonology Progress Note ---
Date of Service December 21, 2023 Assessment & Plan (1) Pneumonia due to COVID-19 virus: (2) Acute hypoxemic respiratory failure: (3) Headache: Headache chronicity pattern: acute headache Headache type: u nspecified Intractability: intractable Qualified Code(s): R51.9 - Headache, unspecified Plan CT chest 12/17/2023 personally reviewed: Patchy groundglass opacities appreciated bilaterally especially on the periphery More on the right side Motion degraded study Minimal subcarinal lymphadenopathy --Acute hypoxic respiratory failure Secondary to multilobar COVID-19 pneumonia COVID-19 PCR positive, 12/09/2023 CRP 15.49 --> 4.06 Procalcitonin 0.10 Continue with O2 supplementation to keep oxygen saturation between 90-92%. Awake proning will be helpful Continue with incentive spirometry Continue with flutter valve. Recommend patient to be kept euvolemic to negative balance Plan: In/out: +5 L since coming to the hospital, there is no output strictly measured Complete the course of dexamethasone for total of 10 days No indication to give tocilizumab or baricitinib. Recommend repeat CAT scan of the chest to be done in 8-12 weeks Recommend psychiatric evaluation. Case was discussed with RN and primary team No further recommendation from pulmonary perspective, will sign off Please call directly with any questions Please note the above document was generated using voice recognition software. It may contain grammatical, syntax or spelling errors.Any formal questions or concerns about the content, text or information contained within the body of this dictation should be directly addressed to the provider for clarification. Admission and Anticipated Discharge Date Admission Date: December 16, 2023 Subjective Seen and examined at bedside. No acute distress, still complaining of headache Saturating 93-94% on 5 L nasal cannula. No nausea vomiting Fair appetite Review of Systems 2 Review of Systems: All systems reviewed & are unremarkable except as noted in Subjective Physical Exam 2 Physical Exam: Constitutional: No acute distress HEENT: EOMI, PERRLA Respiratory system: Decreased air entry bilaterally, no wheeze, no rhonchi, positive crackles bilaterally CVS: S1-S2 positive, no murmurs or gallops Abdomen: Soft, nontender, nondistended, positive bowel sounds x4 Extremities: +2 pulses bilaterally radialis/ dorsalis pedis, no cyanosis, no edema Neuro: Awake alert oriented x3 Psych: Normal mood and affect G/U: No [place]o Skin: no rashes, warm and dry Lymphatic: no cervical or axillary lymphadenopathy Results & Data Results & Data Vital Signs (Past 12 Hours) Vital Signs Temp Pulse Pulse Resp BP Pulse Ox O2 Del Method 12/21/23 08:00 36.6 C 89 20 163/89 H 94 Nasal Cannula 12/21/23 03:51 36.7 C 20 160/74 H 93 Nasal Cannula 12/20/23 22:47 Nasal Cannula 12/20/23 22:00 56 L O2 Flow Rate 12/21/23 08:00 5 12/21/23 03:51 5 12/20/23 22:47 5 12/20/23 22:00 Laboratory Results 12/21/23 07:23 12/21/23 07:23 PG Care Time/CCT Total # of Minutes Spent Total Time Spent with Patient: Total time spent is greater than 50% in coordination of care (as documented) at patient's floor/unit and/or counseling patient: Coding Level of Care Code 45259 SUB INP/OBS CARE 2/35MIN Diagnoses Pneumonia due to COVID-19 virus U07.1; J12.82 Acute hypoxemic respiratory failure J96.01 Headache R51.9 Headache chronicity pattern: acute headache Headache type: unspecified Intractability: intractable
[2023-12-21] MEDS: dexAMETHasone 10 MG in SYRINGE 0 ML IV SCH (08:58)
[2023-12-21] MEDS ORDERED: DEXAMETHASONE SOD INJ 4 MG/ML VIAL IV SCH (09:00)
--- NOTE | 2023-12-21 10:15 | Communication Note ---
Date of Service: December 21, 2023 Palliative Medicine Brief Note Contacted by nursing that patient's family is requesting discussion about transitioning to comfort care/"withdrawal of care." This is a complete opposite of what was expressed as their wishes yesterday during a family meeting with me, patient and his 3 sons at the bedside. Nursing notes that today's request for transition to full comfort care was made by patient's daughter who is at the bedside with him today. Since I am in clinic this morning, I will attempt to meet with them later this afternoon for another goals of care discussion. This time I will require the formal translation services with the iPad based translation and I will require some time to discuss with the patient privately before a larger discussion with the family to properly ascertain his wishes with an accurate and verified medical office rep present. Discussed with nursing and plan for meeting has been agreed upon. I will see patient this afternoon, hopefully around 130 or 2 PM after my clinic is concluded. Thank you for allowing us to participate in the ongoing care of this patient. Please page with any additional concerns. Mariusz Limon DNP Director, Palliative Medicine
[2023-12-21] MEDS: oxyCODONE HCL IR 5 MG TAB (IMMEDIATE RELEASE) PO PRN (10:29)
--- NOTE | 2023-12-21 10:35 | Communication Note ---
Date of Service: December 21, 2023 Pt's dtr Miriam at bedside and patient wanting to go comfort care measures again today. Pt declined meds and O2 per RN. Pt was on RA. Pt denies any further imaging, labs or interventions. We discussed that we continue w/ headache pain meds and gastritis meds, he agreed but said no other active management. He declined O2 as well. Palliative aware, who will eval the patient later in the day. Pt's dtr states he had never had psychiatric issues and they have never seen any anger issues/depression or mood issues with him. Patient denies SI/HI. We dis cussed covid could cause psychiatric issues, and see if they are ok w/ me bringing in psychiatry doctor for eval. Patient declined psychiatric consult. Patient does seem reasonable, calm and composed during all these discussion. Will increase pain meds until full palliative re-eval later in the afternoon today. Revisted patient and dtr again after he had vomiting. Vomitus was pinkish per RN. Will hold diet and lovenox and ketorolac. Offered further investigation including CT abdomen pelvis/GI eval, patient declined. Pt now ok w/ O2, put in 6L Oxygen but he asked to decrease the flow rate, i put in 4L NC O2 and he was ok with that. Total time spent 45 min in bedside discussion.
[2023-12-21] MEDS ORDERED: PROMETHAZINE 6.25 MG/50.25 ML BAG IV PRN (10:45)
[2023-12-21] MEDS ORDERED: MoRPHine SULFATE 2 MG/ML CARP IV PRN (10:49)
[2023-12-21] MEDS: SUCRALFATE 1 GM/10 ML UDC PO SCH (12:15)
[2023-12-21] MEDS: FAMOTIDINE 20MG IV PUSH 20 MG/5 ML SYR IV SCH (12:15)
[2023-12-21] MEDS: HYDROmorphone INJ 0.5 MG/0.5 ML SYR IV PRN ×2 (12:20→17:13)
[2023-12-21] MEDS ORDERED: LORazepam 2 MG/1 ML VIAL IV PRN (14:43)
[2023-12-21] MEDS ORDERED: ONDANSETRON INJ 2 MG/ML 2 ML VIAL IV PRN (14:43)
[2023-12-21] MEDS ORDERED: MoRPHine SULFATE 10 MG/0.5 ML UDP PO PRN (14:52)
--- NOTE | 2023-12-21 15:02 | Palliative Family Discussion ---
Date of Service December 21, 2023 Patient Directed Conference Time of Meetin-245pm Participants: Sue Limon DNP Patient participation: yes Patient Support System: dtr Cassandra Other Healthcare Provider Participation: None Meeting Location: bedside Advanced Directive available: None on file, pt reaffirms DNR/DNI The patient's surrogate medical decision maker participated: Cassandra swann at bedside A face to face ACP meeting was held with medical insurance verifier vis iPad at bedside with pt and his daughter Cassandra. This meeting was held for BASSEM SANTO. This meeting was necessary for determining the appropriate course of treatment. Formal medical translation services was utilized for this entire visit. The process of discussion was slow: pt states he cannot look at iPad screen d/t headache He states eh cannot hear bc his hearing aides are not in. Dtr had hearing aides at bedside but states only one is charged and the other is not working but pt refused to use hearing aides. He responded clearly and consistently to dtr when she spoke to him. We moved the iPad closer to his ear and turned the screen away so it would not exacerbate his headache. With this modification, he could hear the air pollution control engineer and respond to all questions. Topics of Discussion Topics of Discussion: 1. Active covid/resp failure/hypoxia: pt is refusing treatment. Bassem states he wants to stop all meds, does not believe they are helping. 2. Stylist Apprentice's Lung: refuses eval/work up 3. Headache of unclear etiology, refusing work up, declined MRI. Failed LP attempt x2 in ER 4. Gastritis: chronic and worsening, refusing EGD and further workup. Heme + cough this AM but continues refusing all interventions and reports most of the meds are making him worse. 5. Bassem feels he has been in a general state of decline for years and in past few months, headache has been ongoing/no relief to date and he does not want workup. Medications given to date for all ailments have worsened his stomach pains and distress but he also refuses EGD and workup for gastritis. he has been less and less active. He states he is content with the life he has had and just "want to be left alone now, let me lie in my bed and do what I want." His appetite has been declining for years. He has lost weight. He enjoys time with family but not much else. He has been a for 30+ years. He states he is ready to move onto to the next life in [facility]. He has no fear of dying. I very specifically advised I do not believe he is actively dying, though certainly by refusing further eval/workup of the unknown acute issues and refusing course of tx for covid may eventually lead to more decline and eventual . However, I feel the most likely scenario may be a suboptimal recovery from Covid that will leave him with some limitations +/- ?worsening resp deficit with covid resp failure on top of welder gas automatic's lung. Given that his overall activity level has been on the decline, accelerated PS decline is also possible. He is at risk for progressive resp failure/decline but sometimes, the caring ministrations of [facility] through hospice can help patients recover to a baseline where they are no longer hospice appropriate. Of note, the following inquiries were made of patient using medical insurance verifier: Bassem denies SI/PI Bassem denies fear of abuse by family members Bassem denies issues with mental health and depression CAMICU screen is neg MMSE did not reveal any acute finding of cognitive deficit. Other Content of Meetin. Opportunity given for participants to speak and ask questions. 2. Participants were assured of attention to patient comfort. 3. Reassurance provided. 4. Support was provided for informed, good-evangelist decisions. 5. Emotions expressed by family were acknowledged and addressed. 6. Plan of Care: dc home with [facility] - they offer the option of home IV opioid infusions if needed for adv end of loife care and with pt risk for progressive resp failure and / or gastric hemorrhage, this will be a better 'just in case" measure. TS: 90minutes
--- NOTE | 2023-12-21 16:02 | Hospitalist Progress Note ---
Date of Service December 21, 2023 Assessment & Plan (1) Pneumonia: (2) COVID-19: (3) Acute respiratory failure with hypoxia: (4) Headache: (5) Acute hyponatremia: (6) HTN (hypertension): (7) Diabetes mellitus, type II: (8) CKD (chronic kidney disease), stage III: (9) History of chronic cough: (10) History of granulomatous disease: Plan: 68 year old male with PMH HTN, dyslipidemia, DM II, CKD III, chronic cough, granulomatous disease, history of left mastoidectomy, GERD, history headache in remote past presented to ER with c/o MELENDEZ x 1 week and shortness of breath. Patient found to be acutely hypoxic and COVID positive. LP pursued in ED, however, failed. Patient empirically treated for meningitis. Patient presented to ED on 12/09/23, found to be +COVID, CXR without infiltrate and Rx Medrol dose pack and pt decided against Paxlovid. Recurrent ER visit on 12/14/23 for worsening MELENDEZ, photophobia with CT head negative for acute intracranial abnormality. Pulm consulted due to multifocal pna/covid/increased O2 requirement. Prior attending discussed GoC w/ pt and family on 12/17, pt supposedly wanted to go comfort care measures but agreed to try 1 more day and see how he does. On 12/18, pt wished to continue care. 12/19, pt declined meds and stated he wants comfort measures. His 5 children were at bedside, they were all in agreement w/ pt's wish of comfort measures. Explained to them the situation and stated that though the cure/improvement in lung function can't be guaranteed, but patient is not approaching immediately and it would be too early to think about comfort measures. Answered all their questions, finally requested palliative care consult and patient agreed to continue w/ current care excluding mri and cpap/bpap. 12/20, Pt states he is determined he doesn't want any further treatment and would want to be transitioned to comfort measures. Declined all meds and oxygen. We discussed, dtr Miriam was present and Pt finally agreed for pain meds/iv gi meds and O2. see communication note. Pt doesn't want any more investigations/evaluations or active treatment. Antibiotics , remdesivir and steroid were discontinued. D/w Palliative, POLST form was filled, and pt formally converted to comfort measures status 12/21/2023 afternoon. Will consult CM to assist w/ hospice eval. Prior to comfort measures status, he was being managed for the following: #Acute hypoxic respiratory failure, multifactorial, c/f ARDS? #COVID pneumonia, ?superimposed bacterial pneumonia #Acute headache #History of Migraine #Uncontrolled diabetes type II #Cough Variant Asthma #Granulomatous disease #s/p left mastoidectomy 2017 #Box Blank Machine Operator Helper's lung #Acute Hyponatremia *improving #HTN #CKDIII Total time spent: 70 min Admission and Anticipated Discharge Date Admission Date: December 16, 2023 Subjective Patient was seen and examined at bedside. Patient was lying in bed, on RA. NAD. Pt's dtr Miriam at bedside, GoC discussion held as pt wants to be comfort measures. See communication note for detail. Per RN, pt declining meds/Oxygen. Pt had vomitus, pink tinged, likely GI bleed, pt declined GI eval/possiblity of scope and GI meds to help with this. Physical Exam Physical Exam: General: no acute distress, non-toxic appearance, on RA. Head: normocephalic, atraumatic Eyes: PERRL, EOM's intact, conjunctiva non-injected, anicteric ENT: normal inspection external ears, nose, mucous membranes moist Neck: supple, trachea midline, non-tender to palpation, ROM intact Lungs: no respiratory distress on current 8L O2, +rales bilateral lung hutchins, no wheezing noted CV: RRR, no murmur, no pretibial edema Abd: normal BS, soft, non-tender to palpation Ext: no cyanosis, no calf tenderness Neuro: A&O x 3, no focal deficits noted, normal affect Skin: warm, dry Results & Data Results & Data Vital Signs (Past 12 Hours) Vital Signs Temp Pulse Resp BP Pulse Ox O2 Del Method O2 Flow Rate 12/21/23 10:47 36.6 C 85 18 160/90 H 93 Nasal Cannula 5 12/21/23 09:41 Room Air 12/21/23 08:00 36.6 C 89 20 163/89 H 94 Nasal Cannula 5 (4) Headache Headache chronicity pattern: acute headache Headache type: unspecified Intractability: intractable Qualified Code(s): R51.9 - Headache, unspecified
[2023-12-22 08:32] VITALS: BP 177/61; RESP 18; O2SAT 92
--- NOTE | 2023-12-22 15:04 | Hospitalist Progress Note ---
Date of Service December 22, 2023 Assessment & Plan (1) Pneumonia: (2) COVID-19: (3) Acute respiratory failure with hypoxia: (4) Headache: (5) Acute hyponatremia: (6) HTN (hypertension): (7) Diabetes mellitus, type II: (8) CKD (chronic kidney disease), stage III: (9) History of chronic cough: (10) History of granulomatous disease: Plan: 68 year old male with PMH HTN, dyslipidemia, DM II, CKD III, chronic cough, granulomatous disease, history of left mastoidectomy, GERD, history headache in remote past presented to ER with c/o MELENDEZ x 1 week and shortness of breath. Patient found to be acutely hypoxic and COVID positive. LP pursued in ED, however, failed. Patient empirically treated for meningitis. Patient presented to ED on 12/09/23, found to be +COVID, CXR without infiltrate and Rx Medrol dose pack and pt decided against Paxlovid. Recurrent ER visit on 12/14/23 for worsening MELENDEZ, photophobia with CT head negative for acute intracranial abnormality. Pulm consulted due to multifocal pna/covid/increased O2 requirement. Prior attending discussed GoC w/ pt and family on 12/17, pt supposedly wanted to go comfort care measures but agreed to try 1 more day and see how he does. On 12/18, pt wished to continue care. 12/19, pt declined meds and stated he wants comfort measures. His 5 children were at bedside, they were all in agreement w/ pt's wish of comfort measures. Explained to them the situation and stated that though the cure/improvement in lung function can't be guaranteed, but patient is not approaching immediately and it would be too early to think about comfort measures. Answered all their questions, finally requested palliative care consult and patient agreed to continue w/ current care excluding mri and cpap/bpap. 12/20, Pt states he is determined he doesn't want any further treatment and would want to be transitioned to comfort measures. Declined all meds and oxygen. We discussed, dtr Miriam was present and Pt finally agreed for pain meds/iv gi meds and O2. see communication note. Pt doesn't want any more investigations/evaluations or active treatment. Antibiotics , remdesivir and steroid were discontinued. D/w Palliative 12/20, POLST form was filled, and pt formally converted to comfort measures status 12/21/2023 afternoon. CM to assist w/ hospice eval and dc planning. Prior to comfort measures status, he was being managed for the following: #Acute hypoxic respiratory failure, multifactorial, c/f ARDS? #COVID pneumonia, ?superimposed bacterial pneumonia #Acute headache #History of Migraine #Uncontrolled diabetes type II #Cough Variant Asthma #Granulomatous disease #s/p left mastoidectomy 2017 #Ward Assistant's lung #Acute Hyponatremia *improving #HTN #CKDIII Admission and Anticipated Discharge Date Admission Date: December 16, 2023 Subjective Patient was seen and examined at bedside. Patient was lying in bed, on 5L O2 via mask. Pt states being comfortable, did eat some in AM, is declining all meds but pain meds. No new needs. Physical Exam Physical Exam: General: no acute distress, non-toxic appearance, on 5L O2 via OM. Head: normocephalic, atraumatic Eyes: PERRL, EOM's intact, conjunctiva non-injected, anicteric ENT: normal inspection external ears, nose, mucous membranes moist Neck: supple, trachea midline, non-tender to palpation, ROM intact Lungs: no respiratory distress , +rales bilateral lung hutchins, no wheezing noted CV: RRR, no murmur, no pretibial edema Abd: normal BS, soft, non-tender to palpation Ext: no cyanosis, no calf tenderness Neuro: A&O x 3, no focal deficits noted, normal affect Skin: warm, dry Results & Data Results & Data Vital Signs (Past 12 Hours) Vital Signs Temp Pulse Resp BP Pulse Ox O2 Del Method O2 Flow Rate 12/22/23 08:28 36.6 C 71 18 177/61 H 92 Oxymask 5 (4) Headache Headache chronicity pattern: acute headache Headache type: unspecified Intractability: intractable Qualified Code(s): R51.9 - Headache, unspecified
[2023-12-23] MEDS: HYDROmorphone INJ 1 MG/ML SYRINGE IV PRN (13:46)
--- NOTE | 2023-12-23 16:47 | Hospitalist Progress Note ---
Date of Service December 23, 2023 Assessment & Plan (1) Pneumonia: (2) COVID-19: (3) Acute respiratory failure with hypoxia: (4) Headache: (5) Acute hyponatremia: (6) HTN (hypertension): (7) Diabetes mellitus, type II: (8) CKD (chronic kidney disease), stage III: (9) History of chronic cough: (10) History of granulomatous disease: Plan: 68 year old male with PMH HTN, dyslipidemia, DM II, CKD III, chronic cough, granulomatous disease, history of left mastoidectomy, GERD, history headache in remote past presented to ER with c/o MELENDEZ x 1 week and shortness of breath. Patient found to be acutely hypoxic and COVID positive. LP pursued in ED, however, failed. Patient empirically treated for meningitis. Patient presented to ED on 12/09/23, found to be +COVID, CXR without infiltrate and Rx Medrol dose pack and pt decided against Paxlovid. Recurrent ER visit on 12/14/23 for worsening MELENDEZ, photophobia with CT head negative for acute intracranial abnormality. Pulm consulted due to multifocal pna/covid/increased O2 requirement. Prior attending discussed GoC w/ pt and family on 12/17, pt supposedly wanted to go comfort care measures but agreed to try 1 more day and see how he does. On 12/18, pt wished to continue care. 12/19, pt declined meds and stated he wants comfort measures. His 5 children were at bedside, they were all in agreement w/ pt's wish of comfort measures. Explained to them the situation and stated that though the cure/improvement in lung function can't be guaranteed, but patient is not approaching immediately and it would be too early to think about comfort measures. Answered all their questions, finally requested palliative care consult and patient agreed to continue w/ current care excluding mri and cpap/bpap. 12/20, Pt states he is determined he doesn't want any further treatment and would want to be transitioned to comfort measures. Declined all meds and oxygen. We discussed, dtr Miriam was present and Pt finally agreed for pain meds/iv gi meds and O2. see communication note. Pt doesn't want any more investigations/evaluations or active treatment. Antibiotics , remdesivir and steroid were discontinued. D/w Palliative 12/20, POLST form was filled, and pt formally converted to comfort measures status 12/21/2023 afternoon. CM to assist w/ hospice eval and dc planning. Prior to comfort measures status, he was being managed for the following: #Acute hypoxic respiratory failure, multifactorial, c/f ARDS? #COVID pneumonia, ?superimposed bacterial pneumonia #Acute headache #History of Migraine #Uncontrolled diabetes type II #Cough Variant Asthma #Granulomatous disease #s/p left mastoidectomy 2017 #Cotton Ginner Helper's lung #Acute Hyponatremia *improving #HTN #CKDIII Pt comfortable, no active intervention per pt's wishes. Admission and Anticipated Discharge Date Admission Date: December 16, 2023 Subjective Patient was seen and examined at bedside. Patient was lying in bed, on 4L O2 via mask. Pt states being comfortable, is declining all meds but pain meds though other meds are also inteded towards comfort. No new needs. Physical Exam Physical Exam: General: no acute distress, non-toxic appearance, on 5L O2 via OM. Head: normocephalic, atraumatic Eyes: PERRL, EOM's intact, conjunctiva non-injected, anicteric ENT: normal inspection external ears, nose, mucous membranes moist Neck: supple, trachea midline, non-tender to palpation, ROM intact Lungs: no respiratory distress , +rales bilateral lung hutchins, no wheezing noted CV: RRR, no murmur, no pretibial edema Abd: normal BS, soft, non-tender to palpation Ext: no cyanosis, no calf tenderness Neuro: A&O x 3, no focal deficits noted, normal affect Skin: warm, dry Results & Data Results & Data Vital Signs (Past 12 Hours) Vital Signs O2 Del Method O2 Flow Rate 12/23/23 07:42 Oxymask 4 (4) Headache Headache chronicity pattern: acute headache Headache type: unspecified Intractability: intractable Qualified Code(s): R51.9 - Headache, unspecified
[2023-12-23 22:28] LABS: Babesia microti DNA Not Detected (Not Detected); Q Fever IgG, Phase I NEGATIVE; Q Fever Phase I IgM Antibody NEGATIVE; Q Fever Phase II IgG Antibody NEGATIVE; Q Fever Phase II IgM Antibody NEGATIVE; R. typhi IgG Ab NOT DETECTED; R. typhi IgM Ab NOT DETECTED; RMSF IgG Ab NOT DETECTED; RMSF IgM Ab NOT DETECTED
--- NOTE | 2023-12-24 14:13 | Hospitalist Progress Note ---
Date of Service December 24, 2023 Assessment & Plan (1) Pneumonia: (2) COVID-19: (3) Acute respiratory failure with hypoxia: (4) Headache: (5) Acute hyponatremia: (6) HTN (hypertension): (7) Diabetes mellitus, type II: (8) CKD (chronic kidney disease), stage III: (9) History of chronic cough: (10) History of granulomatous disease: Plan: 68 year old male with PMH HTN, dyslipidemia, DM II, CKD III, chronic cough, granulomatous disease, history of left mastoidectomy, GERD, history headache in remote past presented to ER with c/o MELENDEZ x 1 week and shortness of breath. Patient found to be acutely hypoxic and COVID positive. LP pursued in ED, however, failed. Patient empirically treated for meningitis. Patient presented to ED on 12/09/23, found to be +COVID, CXR without infiltrate and Rx Medrol dose pack and pt decided against Paxlovid. Recurrent ER visit on 12/14/23 for worsening MELENDEZ, photophobia with CT head negative for acute intracranial abnormality. Pulm consulted due to multifocal pna/covid/increased O2 requirement. Prior attending discussed GoC w/ pt and family on 12/17, pt supposedly wanted to go comfort care measures but agreed to try 1 more day and see how he does. On 12/18, pt wished to continue care. 12/19, pt declined meds and stated he wants comfort measures. His 5 children were at bedside, they were all in agreement w/ pt's wish of comfort measures. Explained to them the situation and stated that though the cure/improvement in lung function can't be guaranteed, but patient is not approaching immediately and it would be too early to think about comfort measures. Answered all their questions, finally requested palliative care consult and patient agreed to continue w/ current care excluding mri and cpap/bpap. 12/20, Pt states he is determined he doesn't want any further treatment and would want to be transitioned to comfort measures. Declined all meds and oxygen. We discussed, dtr Miriam was present and Pt finally agreed for pain meds/iv gi meds and O2. see communication note. Pt doesn't want any more investigations/evaluations or active treatment. Antibiotics , remdesivir and steroid were discontinued. D/w Palliative 12/20, POLST form was filled, and pt formally converted to comfort measures status 12/21/2023 afternoon. CM to assist w/ hospice eval and dc planning. Prior to comfort measures status, he was being managed for the following: #Acute hypoxic respiratory failure, multifactorial, c/f ARDS? #COVID pneumonia, ?superimposed bacterial pneumonia #Acute headache #History of Migraine #Uncontrolled diabetes type II #Cough Variant Asthma #Granulomatous disease #s/p left mastoidectomy 2017 #Quantitative Equity Head's lung #Acute Hyponatremia *improving #HTN #CKDIII Pt comfortable, no active intervention per pt's wishes. DC home w/ hospice when arranged for. Admission and Anticipated Discharge Date Admission Date: December 16, 2023 Subjective Patient was seen and examined at bedside. Patient was lying in bed, on 4L O2 via mask. Pt remains comfortable. No new needs. Physical Exam Physical Exam: General: no acute distress, non-toxic appearance, on 4L O2 via OM. Head: normocephalic, atraumatic Eyes: PERRL, EOM's intact, conjunctiva non-injected, anicteric ENT: normal inspection external ears, nose, mucous membranes moist Neck: supple, trachea midline, non-tender to palpation, ROM intact Lungs: no respiratory distress , +rales bilateral lung hutchins, no wheezing noted CV: RRR, no murmur, no pretibial edema Abd: normal BS, soft, non-tender to palpation Ext: no cyanosis, no calf tenderness Neuro: A&O x 3, no focal deficits noted, normal affect Skin: warm, dry Results & Data Results & Data Vital Signs (Past 12 Hours) Vital Signs O2 Del Method O2 Flow Rate 12/24/23 10:20 Oxymask 4 (4) Headache Headache chronicity pattern: acute headache Headache type: unspecified Intractability: intractable Qualified Code(s): R51.9 - Headache, unspecified
--- NOTE | 2023-12-25 12:25 | Discharge Summary ---
Date of Service December 25, 2023 Admission HPI Per Admitting Provider Patient is 68 year old male with PMH HTN, dyslipidemia, DM II, CKD III, chronic cough, granulomatous disease, history of left mastoidectomy, GERD, history MELENDEZ in remote past presented to ER with c/o MELENDEZ x 1 week. History obtained from patient, patient's daughter, and outpatient chart review. Patient is from [facility] He does not speak Slovak. For my exam patient was offered full time staff interpreter service but does not wish to use full time staff interpreter and is using his daughter as full time staff interpreter. He reports will use when his daughter is not at bedside. States symptoms started on 12/07/23 with scratchy throat, increased cough. Patient reports has chronic cough but feels was coughing more. He also reports was having fever. Per chart review was seen at [facility] ER on 12/09/23 for fever, cough, scratchy throat and was diagnosed with COVID. He was given Toradol 10mg IV, methylprednisolone 125mg IV. CXR at that time was without infiltrate. Paxlovid was prescribed but after further discussion patient decided not to take. Also prescribed Medrol. He had another [facility] ER visit on 12/14/23 for worsening MELENDEZ, photophobia. He was given Benadryl, Tylenol, Zofran, Prochlorperazine, Morphine, oxycodone. He had PCP visit on 12/15/23 for continued MELENDEZ, nausea, poor oral intake. In clinic he was given 1L NSS, Zofran, Toradol 15mg and was prescribed oxycodone 5mg 1 tab Q6H prn pain and prednisone 20mg daily for 7 days. Patient returns to ER today for continued MELENDEZ. He describes MELENDEZ is located in frontal and occipital regions. He states this headache is worse than his MELENDEZ's in the past. He feels photophobia when MELENDEZ is severe and states some blurry vision. He states his neck feels "tired" but denies neck pain or restricted ROM of neck. Reports history MELENDEZ in past but is unsure if was ever diagnosed with migraine in past. States his prior MELENDEZ's started when he was under stress with the of his and states MELENDEZ's had improved once the stress resolved and didn't have recurrent MELENDEZ's. Patient states has been under more stress recently. He states when he would get medications at ER and at PCP's office yesterday the MELENDEZ would lessen. But it returns. States temperature was 100.1F yesterday. He states he still has cough and states is a bit more than his chronic cough and reports cough productive clear/white. Denies hemoptysis. He denies CP. Denies SOB or dyspnea.He reports nausea and had some vomiting. Denies vomiting today. Reports decreased appetite. States last night did have some tea and soup. He denies abdominal to this provider. Denies recent travel, injury/trauma. Denies diarrhea, constipation, dizziness, syncope, orthopnea, palpitations, paresthesias, extremity weakness, extremity edema, rashes, urinary symptoms. In ER given Tylenol, Benadryl, prochlorperazine. He states his MELENDEZ has lessened and "took the edge off" and now feels "more like pressure and not pain". In ER given Rocephin, vancomycin and LP to be performed by ER physician Admission Exam Per Admitting Provider General: no acute distress, non-toxic appearance, WDWN Head: normocephalic, atraumatic Eyes: PERRL, EOM's intact, conjunctiva non-injected, anicteric ENT: normal inspection external ears, nose, mucous membranes moist Neck: supple, trachea midline, non-tender to palpation, ROM intact Lungs: no respiratory distress on current 4L O2 with O2 sat: 97%, +rales bilateral lower lung hutchins, no wheezing noted CV: RRR, no murmur, no pretibial edema Abd: normal BS, soft, non-tender to palpation Ext: no cyanosis, no calf tenderness Neuro: A&O x 3, no focal deficits noted, normal affect Skin: warm, dry Principal Diagnosis Comfort care status Acute hypoxic respiratory Failure iso Pneumonia due to COVID 19 on top of existing [employer]'s lung. Discharge Exam General: no acute distress, pt lethargic but states comfortable, on 5L O2 via OM. Head: normocephalic, atraumatic Eyes: PERRL, EOM's intact, conjunctiva non-injected, anicteric ENT: normal inspection external ears, nose, mucous membranes moist Neck: supple, trachea midline, non-tender to palpation, ROM intact Lungs: no respiratory distress , +rales bilateral lung hutchins, no wheezing noted CV: RRR, no murmur, no pretibial edema Abd: normal BS, soft, non-tender to palpation Ext: no cyanosis, no calf tenderness Neuro: no focal deficits noted, normal affect Skin: warm, dry Discharge Data Allergies Allergy/AdvReac Type Severity Reaction Status Date / Time No Known Allergies Allergy Verified 02/21/21 12:03 Consultations 12/16/23 11:30 Consult Neurology Routine 12/16/23 11:33 ED Decision to Admit Stat 12/17/23 11:34 Consult Pulmonology Routine 12/20/23 09:31 Consult Palliative Care Routine Ordered Studies 12/16/23 07:31 CT Abd and Pelvis [CT abd pelvis IV con only] Stat CT head venogram wo/w con Stat 12/17/23 10:45 CT chest diagnostic wo con Routine Diabetes Follow up Diabetes Follow-up Needed for HgbA1c >9% Hospital Course (1) Pneumonia: (2) COVID-19: (3) Acute respiratory failure with hypoxia: (4) Headache: (5) Acute hyponatremia: (6) HTN (hypertension): (7) Diabetes mellitus, type II: (8) CKD (chronic kidney disease), stage III: (9) History of chronic cough: (10) History of granulomatous disease: 68 year old male with PMH HTN, dyslipidemia, DM II, CKD III, chronic cough, granulomatous disease, history of left mastoidectomy, GERD, history headache in remote past presented to ER with c/o MELENDEZ x 1 week and shortness of breath. Patient found to be acutely hypoxic and COVID positive. LP pursued in ED, however, failed. Patient empirically treated for meningitis. Patient presented to ED on 12/09/23, found to be +COVID, CXR without infiltrate and Rx Medrol dose pack and pt decided against Paxlovid. Recurrent ER visit on 12/14/23 for worsening MELENDEZ, photophobia with CT head negative for acute intracranial abnormality. Pulm consulted due to multifocal pna/covid/increased O2 requirement. Prior attending discussed GoC w/ pt and family on 12/17, pt supposedly wanted to go comfort care measures but agreed to try 1 more day and see how he does. On 12/18, pt wished to continue care. 12/19, pt declined meds and stated he wants comfort measures. His 5 children were at bedside, they were all in agreement w/ pt's wish of comfort measures. Explained to them the situation and stated that though the cure/improvement in lung function can't be guaranteed, but patient is not approaching immediately and it would be too early to think about comfort measures. Answered all their questions, finally requested palliative care consult and patient agreed to continue w/ current care excluding mri and cpap/bpap. 12/20, Pt states he is determined he doesn't want any further treatment and would want to be transitioned to comfort measures. Declined all meds and oxygen. We discussed, dtr Miriam was present and Pt finally agreed for pain meds/iv gi meds and O2. see communication note. Pt doesn't want any more investigations/evaluations or active treatment. Antibiotics , remdesivir and steroid were discontinued. D/w Palliative 12/20, POLST form was filled, and pt formally converted to comfort measures status 12/21/2023 afternoon. CM to assist w/ hospice eval and dc planning. Prior to comfort measures status, he was being managed for the following: #Acute hypoxic respiratory failure, multifactorial, c/f ARDS? #COVID pneumonia, ?superimposed bacterial pneumonia #Acute headache #History of Migraine #Uncontrolled diabetes type II #Cough Variant Asthma #Granulomatous disease #s/p left mastoidectomy 2017 #[employer]'s lung #Acute Hyponatremia *improving #HTN #CKDIII Pt comfortable, no active intervention per pt's wishes. DC home w/ hospice today. Home Health Attestation I certify that this patient is under my care and that I, or a physicians food service assistant working with me, had a face to-face encounter that meets the home health [id number] encounter requirements with this patient. The encounter with the patient was in whole, or in part, for the following medical condition, which is the primary reason for home health care (list medical condition): I certify that, based on my findings, the following services are medically necessary home health services: My clinical findings support the need for the above services because: Further, I certify that my clinical findings support that this patient is homebound (i.e. absences from home require considerable and taxing effort and are for medical reasons or catholic services or infrequently or of short duration when for other reasons) because: Certification for Home Health Services: Based on the above findings, I certify that this patient is confined to the home and needs intermittent chcf care, physical therapy and/or speech therapy or continues to need occupational therapy. The patient is under my care, and I have initiated the establishment of the plan of care. This patient will be followed by a physician who will periodically review the plan of care. Total Time Total Time Spent Total Time Spent (In Minutes): 35 Discharge Plan Discharge Items Patient Disposition: Hospice - Home Reason For Visit: PNA, MELENDEZ Discharge Diagnosis: Comfort care status Acute hypoxic respiratory Failure iso Pneumonia due to COVID 19 on top of existing [employer]'s lung. Activity: Resume your previous activity Non-emergency contact: Primary Care Provider Call non-emergency contact if: you have any medication questions, your symptoms worsen and your temperature is above 101 Follow-up/Referrals: Matti Dawson, [Primary Care Provider] - Diet: Regular Addtl Attending Provider Instructions: You are being discharged to home with hospice. You will be discharged on some comfort care status medications for 2 days until hospice care starts at your home. Once the hospice provider takes over your care, they will direct your medications and management. Your home medications which might help with your comfort status are continued and rest are discontinued. Pending Studies at Discharge: No Stand-Alone Forms: [facility] [email or web address] Medications and DC Order Prescriptions: New morphine concentrate 100 mg/5 mL (20 mg/mL) solution 5 mg PO Q4H PRN (Reason: dyspnea, pain, anxiety) Qty: 30 0RF lorazepam [Ativan] 0.5 mg tablet 0.5 mg PO Q4H PRN (Reason: anxiety/agitation. ) Qty: 20 0RF hyoscyamine sulfate [Levsin] 0.125 mg tablet 0.125 mg PO Q4H PRN (Reason: increased secretions) Qty: 20 0RF Continued pantoprazole 40 mg tablet,delayed release (DR/EC) 40 mg PO DAILY albuterol sulfate [Ventolin HFA] 90 mcg/actuation HFA aerosol inhaler 2 inh INHALATION Q6H PRN (Reason: Shortness Of Breath Or Wheezing) losartan 25 mg tablet 25 mg PO DAILY Asmanex Twisthaler 220 mcg/ actuation (120) aerosol powdr breath activated 0 inh INHALATION UD Rx Instructions: last filled in may. Per pharmacy there has been availability/insurance issues with inhalers ondansetron HCl [Zofran] 4 mg Tablet 4 mg PO Q8H PRN (Reason: n/v) oxycodone 5 mg Tablet 5 mg PO Q6H PRN (Reason: Pain) Discontinued glipizide 5 mg tablet extended release 24hr 5 mg PO DAILY Tradjenta 5 mg tablet 5 mg PO DAILY atorvastatin 80 mg tablet 80 mg PO HS benzonatate 200 mg Capsule 200 mg PO BID PRN (Reason: Cough) prednisone 20 mg Tablet 20 mg PO UD Rx Instructions: Per pharmacy his daughter picked up medication yesterday. Would probably have started this morning 12/15 since it was picked up later in the evening on 12/14 Discharge Orders: Discharge Order (Routine); Ordered 12/25/23 Ordered By: Emilee Bryant/Other Patient Handouts: Managing Type 2 Diabetes Admission Data Admit Date/Time: 12/16/23 11:42 Attending Provider: Emilee Carnes Admit Provider: Donovan Carroll Primary Care Provider: Matti Dawson Other Providers: [facility]; Pasha Emanuel; Donovan Carroll; Jaron Mcgill; Sue Limon
[2023-12-25 14:08] VITALS: PULSE 72
== END 2023-12-25 15:05 | disposition hospice, home (50) | DRG 177 ==
LOC: ED 05:32 → EDINP 11:42 → SUATTDRO 11:42 → 2S 12-17 09:15 → 3N 12-21 18:52